=== PATIENT | female | born 1940 | race Caucasian/White ===

== ENCOUNTER → 2019-11-25 14:55 | Outpatient (CLI) | payer MEDICARE, BC, SELFPAY ==
--- NOTE | ~2019-11-25 | MM_ITS ---
EXAMINATION: MM screening pierre BI w tl HISTORY: Screening mammogram TECHNIQUE: Craniocaudal and mediolateral oblique 3-D tomosynthesis images were obtained and synthetic 2-D images were generated. CAD analysis was submitted and interpreted. COMPARISON: 08/28/2018, 07/16/2017, 07/04/2016 bilateral digital screening mammogram examinations BREAST PARENCHYMAL COMPOSITION: FINDINGS: There is no evidence of suspicious mass, calcification, or architectural distortion to sugg est malignancy in either breast. There has been no suspicious interval change. IMPRESSION: 1. No mammographic evidence of malignancy. 2. Recommend routine screening mammography in one year. BIRADS Category 1: Negative Reviewed, dictated and finalized at location A.
== END ==
PROVIDERS: Visit Provider Obstetrics & Gynecology Gynecology
DX: Z12.31 Encounter for screening mammogram for malignant neoplasm of breast (principal)
CPT/HCPCS: 77063; 77067

== ENCOUNTER 2020-01-21 18:26 | Emergency (ER) | payer MEDICARE, BC, SELFPAY ==
--- NOTE | 2020-01-21 18:35 | ECG_ITS ---
Measurements Intervals [place] Rate: 85 P: 42 [place]: 150 QRS: -33 QRSD: 113 T: 35 QT: 369 QTc: 441 Interpretive Statements SINUS RHYTHM LEFT AXIS DEVIATION INTRAVENTRICULAR CONDUCTION DELAY LEFT VENTRICULAR HYPERTROPHY AND ST-T CHANGE CANNOT RULE OUT SEPTAL INFARCT, AGE INDETERMINATE BORDERLINE ST ABNORMALITY- HIGH LATERAL LEADS ABNORMAL ECG Electronically Signed On 01-22-2020 6:53:59 CDT by Tee Crowder D.O.
[2020-01-21 18:39] VITALS: BP 196/104; PULSE 88; RESP 14; TEMP 36.9; O2SAT 98
[2020-01-21 18:54] LABS: Basophils Percent Auto 0.5 % (0.2-1.2); Eosinophils Absolute Auto 0.2 K/mm3 (0-0.3); Eosinophils Percent Auto 1.7 % (0-4.4); Hematocrit 37.8 % (37.0-47.0); Hemoglobin 12.9 g/dL (12.0-15.0); Immature Granulocyte Absolute 0.03 K/mm3 (0.00-0.031); Immature Granulocyte Percent A 0.3 % (0-0.5); Lymphocytes Absolute Auto 3.33 K/mm3 (0.9-3.2); Lymphocytes Percent Auto 38.1 % (18.3-44.2); Mean Corpuscular HGB Conc 34.1 g/dl (32-36); Mean Corpuscular Hemoglobin 31.5 pg (26-34); Mean Corpuscular Volume 92.4 fl (80-100); Mean Platelet Volume 8.6 fl (7.4-10.4); Monocytes Absolute Auto 0.8 K/mm3 (0.1-0.6); Monocytes Percent Auto 8.9 % (2.6-8.5); Neutrophils Absolute Auto 4.4 K/mm3 (1.3-6.7); Neutrophils Percent Auto 50.5 % (45.5-73.1); Nucleated Red Blood Cells Perc 0.3 % (0.0-0.2); Platelet Count Result 291 k/mm3 (150-375); Red Blood Count 4.09 M/mm3 (4.2-5.4); White Blood Count 8.7 K/mm3 (4.5-10.0)
[2020-01-21 19:04] LABS: Anion Gap 7 mmol/L (8-16); Blood Urea Nitrogen 18 mg/dL (7-17); Calcium 9.4 mg/dL (8.4-10.2); Carbon Dioxide 27 mmol/L (22-30); Chloride 98 mmol/L (98-107); Estimated CRCL calculation 43 ml/min; Estimated Glomerular Filt Rate > 60; Glucose 139 mg/dL (65-105); Potassium 3.7 mmol/L (3.4-5.0); Sodium 132 mmol/L (137-145)
[2020-01-21 19:15] VITALS: BP 108/73; PULSE 65; RESP 18; O2SAT 99
--- NOTE | 2020-01-21 19:48 | ED.GENADULT ---
HPI - General Adult General Chief complaint: Unspecified Stated complaint: high blood pressure Time Seen by Provider: 01/21/20 19:13 History of Present Illness HPI narrative: Pt c/o elevated blood pressure at home 200 , denies any symptoms. Denies headache, dizziness, speech or visual disturbance, weakness, numbness, unsteady gait, cp, sob, abd pain or n/v. Related Data Home Medications Medication Instructions Recorded Confirmed amlodipine 03/24/19 Allergies Allergy/AdvReac Type Severity Reaction Status Date / Time No Known Allergies Allergy Verified 03/24/19 15:39 Review of Systems Review of Systems: All systems reviewed & are unremarkable except as noted in HPI and below Constitutional: Constitutional: Denies body ache(s), Denies chills, Denies excessive sweating, Denies fatigue, Denies fever(s), Denies headache(s), Denies lethargy, Denies malaise, Denies weakness and Denies weight loss Eyes: Eyes: Denies blurry vision, Denies change in vision and Denies loss of vision ENT: Denies dizziness, Denies ear discharge, Denies headache(s), Denies lip swelling, Denies epistaxis, Denies nasal congestion, Denies neck pain, Denies throat swelling and Denies tongue swelling Cardiovascular: Cardiovascular: Denies chest pain, Denies chest pain at rest, Denies chest pain with activity, Denies diaphoresis, Denies rapid heart rate, Denies edema, Denies irregular heart rhythm, Denies lightheadedness, Denies palpitations, Denies dyspnea and Denies dyspnea on exertion Respiratory: Respiratory: Denies chest congestion, Denies cough, Denies hemoptysis, Denies dyspnea and Denies dyspnea on exertion Gastrointestinal: Gastrointestinal: Denies abdominal pain, Denies melena, Denies hematochezia, Denies diarrhea, Denies nausea, Denies vomiting and Denies hematemesis Musculoskeletal: Musculoskeletal: Denies abnormal gait, Denies deformity, Denies joint swelling, Denies limited range of motion, Denies neck pain and Denies numbness Neurologic: Denies Abnormal speech present, Denies abnormal gait, Denies confusion, Denies dizziness, Denies headache(s), Denies focal weakness, Denies loss of vision, Denies numbness, Denies Other visual disturbances, Denies Sensory deficit (Neuro) and Denies weakness Psychiatric: Psychiatric: Denies confusion, Denies depression, Denies auditory hallucinations, Denies homicidal ideation and Denies suicidal ideation Endocrine: Endocrine: Denies cold intolerance, Denies excessive sweating, Denies fatigue, Denies heat intolerance and Denies palpitations Hematologic/Lymphatic: Hematologic/Lymphatic: Denies easy bleeding and Denies easy bruising Allergic/Immunologic: Allergic/Immunologic: Denies lip swelling, Denies throat swelling and Denies tongue swelling PMFSH Past Medical History Medical History (Updated 01/21/20 @ 20:38 by Jose A Santillan MD) HTN (hypertension) Surgical History Surgical History (Updated 03/24/19 @ 16:25 by Phil Rao) No significant past surgical history Social History Social History (Updated 03/24/19 @ 16:25 by Phil Rao) Smoking status: Never smoker Gender identity (if verbalized by the patient): Female Exam Const: General: cooperative, healthy appearing, comfortable, no acute distress, well developed, alert and awake; No confusion Orientation/consciousness: oriented to person, oriented to place, oriented to time, patient oriented x3 and No confusion Limitations: no limitations HENMT: Head: normal to inspection, normocephalic and atraumatic Ears: hearing grossly normal bilaterally, TM normal on the right and TM normal on the left General nose exam: Normal external nose present, Normal nares present and No nasal discharge present Face and sinus: normal facial exam Mouth: Yes Normal oral and palatal mucosa present, Yes lip normal, Yes tongue normal and Yes oropharynx normal Throat: posterior oropharynx normal, tonsils normal and uvula midline Eyes: General: ap
[2020-01-21 20:00] VITALS: BP 148/92; PULSE 79; O2SAT 99
[2020-01-21 21:00] VITALS: BP 126/93; PULSE 83; RESP 18; O2SAT 95
[2020-01-21 21:50] VITALS: BP 134/79; PULSE 89; RESP 16; O2SAT 99
== END 2020-01-21 21:50 | disposition home or self-care (01) ==
PROVIDERS: Emergency Medicine; Emergency Provider Emergency Medicine
DX: I10 Essential (primary) hypertension (principal)
CPT/HCPCS: 36415; 80048; 85025; 93005; 99284

== ENCOUNTER 2020-02-04 11:12 | Observation (INO) | payer MEDICARE, BC, SELFPAY ==
[2020-02-04] VITALS (13 sets, daily range): BP systolic 114–212; BP diastolic 51–69; PULSE 50–64; RESP 15–23; TEMP 35.7–36.1; O2SAT 96–100; BMI 28.0
--- NOTE | ~2020-02-04 | XR_ITS ---
XR chest 1V portable DATE: 02/04/2020 14:32 INDICATION: Hypertension TECHNIQUE: Portable AP chest on 02/14/2020 at 1429 hours COMPARISON: 03/24/2019 PA and lateral chest FINDINGS: Heart size appears within normal limits considering magnification associated with abduction . There is aortic arch calcification and mild aortic unfolding. No pulmonary infiltrate or consolidat ion, pleural effusion or pulmonary vascular congestion or pneumothorax is detected. Osteopenia. IMPRESSION: No active cardiopulmonary disease or significant change since 03/24/2019 Reviewed, dictated and finalized at location A.
--- NOTE | ~2020-02-04 | CT_ITS ---
EXAMINATION: CT brain wo con DATE: 02/04/2020 14:52 INDICATION: Dizziness TECHNIQUE: Computed tomography (CT) of the head was performed without intravenous contrast. Sagittal and coronal reconstructions were performed. The mA was adjusted according to patient size. Iterative reconstruction technique was employed. The dose-length product was 605.33 mGy-cm. COMPARISON: None FINDINGS: No acute intracranial hemorrhage, acute infarction or abnormal extra axial fluid collection. There is mild scattered white matter hypoattenuation consistent with chronic small vessel ischemic disease. Ventricles are normal and symmetric. No mass/mass effect. The orbits, paranasal sinuses and mastoid a ir cells are normal. Intracranial calcified cerebral atherosclerosis is noted. IMPRESSION: 1. No acute intracranial process. 2. Mild scattered white matter hypoattenuation consistent with chronic small vessel ischemic disease. Reviewed, dictated and finalized at location A. IMPRESSION: 1. No acute intracranial process. 2. Mild scattered white matter hypoattenuation consistent with chronic small ve ssel ischemic disease.
--- NOTE | 2020-02-04 12:08 | ECG_ITS ---
Measurements Intervals [place] Rate: 58 P: 62 FL: 97 QRS: -36 QRSD: 111 T: -9 QT: 409 QTc: 405 Interpretive Statements SINUS BRADYCARDIA WITH SHORT FL INTERVAL LEFT AXIS DEVIATION INCOMPLETE RIGHT BUNDLE BRANCH BLOCK VOLTAGE CRITERIA FOR LVH CANNOT RULE OUT SEPTAL INFARCT, AGE INDETERMINATE BORDERLINE T WAVE ABNORMALITY- INFERIOR LEADS ABNORMAL ECG Electronically Signed On 02-04-2020 12:25:07 CDT by Tee Crowder D.O.
--- NOTE | 2020-02-04 14:05 | ED.GENADULT ---
HPI - General Adult General Chief complaint: Unspecified Stated complaint: hign blood pressure Time Seen by Provider: 02/04/20 13:43 Source: patient Mode of arrival: ambulatory Limitations: no limitations History of Present Illness HPI narrative: 79 years old white female presents with elevated blood pressure in the last few days. Was seen by her family physician recently, used to be on amlodipine which stopped and started on losartan. At home blood pressure running in the 200s. Patient also complaining of dizziness and foggy feeling. Patient lives alone, extremely worried about her blood pressure because her mom had stroke at her age, Blood pressure on arrival to the emergency room was 212/65, when I went see the patient in the room was 175/62, Patient denies any fever, chills, nausea, vomiting, headache, chest pain, back pain or abdominal pain. Patient denies any focal weakness or numbness. Patient drove herself to the emergency room, She works as a business specialist Related Data Home Medications Medication Instructions Recorded Confirmed losartan 02/04/20 Allergies Allergy/AdvReac Type Severity Reaction Status Date / Time No Known Allergies Allergy Verified 02/04/20 12:06 Review of Systems Review of Systems: Narrative: CONSTITUTIONAL: Denies fever, chills, or sweats. EYES: Denies visual changes, redness, or discharge. ENT: Denies rhinorrhea, congestion, sore throat, or otalgia. CARDIOVASCULAR: Denies chest pain, palpitations, or edema. RESPIRATORY: Denies cough or dyspnea. GASTROINTESTINAL: Denies abdominal pain, nausea, vomiting, or diarrhea. GENITOURINARY: Denies dysuria or hematuria. SKIN: Denies rash or itching. MUSCULOSKELETAL: Denies back pain, joint pain, or myalgia. NEUROLOGIC: Denies headache, numbness, or weakness. PSYCHIATRIC: Anxious. [facility] Past Medical History Medical History HTN (hypertension) Surgical History Surgical History No significant past surgical history Social History Social History Smoking status: Never smoker Gender identity (if verbalized by the patient): Female Sexual Orientation (if Verbalized by the Patient): Straight or Heterosexual Exam Narrative: Exam Narrative: General appearance: Well-developed, well-nourished, anxious, no significant other at the bedside Skin: Normal color Head: Normocephalic, nontraumatic Eyes: Clear conjunctiva ENT: Oropharynx normal, ears normal, nose normal Neck: Supple, nontender Chest and respiratory: Airway patent, no respiratory distress, no accessory muscle use Heart: Regular rate/rhythm Abdomen: Soft, nontender, no organomegaly, quiet bowel sounds Vascular: Normal peripheral pulses, normal capillary refill. Musculoskeletal: Normal range of motion, nontender back Neurologic: Alert and oriented ?3, [employer] is normal as tested, no gross motor deficit Course Course Emergency Course: Improving Currently blood pressure is 124/59 after 0.1 mg of clonidine orally. STUDIO OPERATOR/PA Physician Supervision Now patient complaining of tightness, swelling and heaviness of her breasts bilaterally, no improvement after removing her bras, physical exam showed no acute physical findings to explain patient's symptoms. Patient reported that she cannot go home because she still has lightheadedness and cannot drive and can manage her life at home especially she lives alone, have 2 children who are extremely busy and nobody have time for her. Patient reports that she been taking salt in her diet, nobody extubated why she had hyponatremia in the past.
--- NOTE | 2020-02-04 14:56 | PC.NURSE ---
pt to ct scan via stretcher
[2020-02-04] MEDS: cloNIDine HCL 0.1 MG TABLET PO (14:57)
[2020-02-04 15:22] LABS: Add Urine Microscopic? YES; Appearance Urine Clear (Clear); Bilirubin Urine Negative (Negative); Blood Urine Negative (Negative); Color Urine Straw (Yellow); Glucose Urine UA Negative (Negative); Ketones Urine Negative (Negative); Leukocyte Esterase Ur Trace LEU/UL (Negative); Mucus Urine Rare /lpf; Nitrate Urine Negative (Negative); Protein Urine Negative (Negative); RBC Urine 0-2 /hpf (0-2); Specific Grav Ur 1.005 (1.001-1.035); Squamous Epithelial Cell Urine Rare /hpf (Few); Urobilinogen Urine Negative mg/dL (<2.0); WBC Urine 0-3 /hpf
[2020-02-04 15:35] LABS: Basophils Percent Auto 0.4 % (0.2-1.2); Eosinophils Absolute Auto 0.2 K/mm3 (0-0.3); Hematocrit 36.6 % (37.0-47.0); Hemoglobin 12.9 g/dL (12.0-15.0); Immature Granulocyte Absolute 0.02 K/mm3 (0.00-0.031); Immature Granulocyte Percent A 0.3 % (0-0.5); Lymphocytes Absolute Auto 2.63 K/mm3 (0.9-3.2); Lymphocytes Percent Auto 36.1 % (18.3-44.2); Mean Corpuscular HGB Conc 35.2 g/dl (32-36); Mean Corpuscular Hemoglobin 31.3 pg (26-34); Mean Corpuscular Volume 88.8 fl (80-100); Mean Platelet Volume 8.5 fl (7.4-10.4); Monocytes Absolute Auto 0.6 K/mm3 (0.1-0.6); Neutrophils Absolute Auto 3.8 K/mm3 (1.3-6.7); Neutrophils Percent Auto 52.2 % (45.5-73.1); Platelet Count Result 301 k/mm3 (150-375); Red Blood Count 4.12 M/mm3 (4.2-5.4); Red Cell Distribution Width 11.4 % (11.5-14.5); White Blood Count 7.3 K/mm3 (4.5-10.0)
[2020-02-04 15:47] LABS: Alanine Aminotransferase 19 U/L (4-35); Albumin Level 4.3 g/dL (3.5-5.1); Alkaline Phosphatase 82 U/L (38-126); Anion Gap 7 mmol/L (8-16); Aspartate Amino Transferase 25 U/L (14-36); Bilirubin,Total 0.3 mg/dL (0.2-1.3); Blood Urea Nitrogen 10 mg/dL (7-17); Calcium 9.2 mg/dL (8.4-10.2); Carbon Dioxide 30 mmol/L (22-30); Chloride 92 mmol/L (98-107); Estimated CRCL calculation 63 ml/min; Estimated Glomerular Filt Rate > 60; Glucose 103 mg/dL (65-105); Potassium 4.1 mmol/L (3.4-5.0); Sodium 129 mmol/L (137-145)
[2020-02-04 15:48] LABS: Atypical Lymphocytes Present; Platelet Estimate Adequate (Adequate)
[2020-02-04 15:58] LABS: Troponin I < 0.012 ng/mL (0.000-0.034)
--- NOTE | 2020-02-04 18:33 | PC.NURSE ---
Dr Shane at bedside, discussed POC w/ pt.
[2020-02-04] MEDS: LORazepam (*CRX) 0.5 MG TABLET PO (19:06)
[2020-02-04] MEDS: SODIUM CHLORIDE 0.9% IV 1,000 ML 60 ML IV CONT (19:22)
--- NOTE | 2020-02-04 21:57 | ADMGEN ---
This patient, Audrey Cade, was admitted to IMU Room 211-01 from ER 02/04/202025. Patient/family oriented to hospital policies and general routines including ID bracelet, bed and alarms, visiting hours, pain management, procedures, bathroom and other care routines, personal items, smoking policy, room service/diet, and visiting hours. Valuables list has been completed. Information on how to activate the Rapid Response Team has been discussed. Patient/Family are encouraged to report perceived risks to care and to ask questions if they do not understand what they are told or what they should do.
[2020-02-04 22:31] LABS: Troponin I < 0.012 ng/mL (0.000-0.034)
[2020-02-05] VITALS (10 sets, daily range): BP systolic 118–148; BP diastolic 52–75; PULSE 45–74; RESP 18–21; TEMP 35.8–36.2; O2SAT 98–100
[2020-02-05 05:24] LABS: Troponin I < 0.012 ng/mL (0.000-0.034)
--- NOTE | 2020-02-05 06:00 | ECG_ITS ---
Measurements Intervals [place] Rate: 54 P: 2 [place]: 159 QRS: -32 QRSD: 110 T: -15 QT: 432 QTc: 410 Interpretive Statements SINUS BRADYCARDIA LEFT AXIS DEVIATION INTRAVENTRICULAR CONDUCTION DELAY VOLTAGE CRITERIA FOR LVH CANNOT RULE OUT SEPTAL INFARCT, AGE INDETERMINATE BORDERLINE T WAVE ABNORMALITY- INFERIOR LEADS ABNORMAL ECG Electronically Signed On 02-05-2020 11:55:12 CDT by Tee Crowder D.O.
[2020-02-05 06:20] LABS: Anion Gap 5 mmol/L (8-16); Blood Urea Nitrogen 9 mg/dL (7-17); Calcium 8.6 mg/dL (8.4-10.2); Carbon Dioxide 30 mmol/L (22-30); Chloride 96 mmol/L (98-107); Estimated CRCL calculation 63 ml/min; Estimated Glomerular Filt Rate > 60; Glucose 95 mg/dL (65-105); Sodium 131 mmol/L (137-145)
[2020-02-05] MEDS: ASPIRIN 81 MG CHEWABLE TABLET PO (08:34)
[2020-02-05] MEDS: SODIUM CHLORIDE 0.9% IV 1,000 ML 60 ML IV CONT (10:05)
--- NOTE | 2020-02-05 14:28 | PM.SD ---
Same Day Admit/Disch: HPI History of Present Illness Chief complaint: Uncontrolled hypertension/anxiety/hyponatremia/cp Narrative: Audrey Cade is a 79 year old female with history of hypertension recently seen by her primary care doctor and her amlodipine was stopped start the patient on losartan, patient noticed blood pressure was rising presented emergency department with complaint of being dizzy his emergency department patient was noticed to be very anxious, after few hours in the emergency depart patient blood pressure had trended down to her normal level however patient has not wanted to go home as he was afraid being alone home, patient was admitted monitor overnight. [facility] Past Medical History Medical History (Updated 02/11/20 @ 08:12 by Tee Crowder DO) HTN (hypertension) Surgical History Surgical History No significant past surgical history Family History Family History Mother Heart disease Cerebrovascular accident Father Heart disease Cancer Sibling Heart disease Social History Social History Smoking status: Never smoker Alcohol intake: current Drinks per week: 2 Substance use: never Substance use type: does not use Gender identity (if verbalized by the patient): Female Spiritual care concerns: No Same Day Admit/Disch: Med Pre-admit Medications Home Medications Medication Instructions Recorded Confirmed Type Silvino Jensen 1,000 mg PO DAILY 02/04/20 02/11/20 History Coenzyme Q10 With D3/Mag/Zinc 1 cap/day PO DAILY 02/04/20 02/11/20 History Keratan 250 mg PO DAILY 02/04/20 02/11/20 History [place] Oil 1 cap PO DAILY 02/04/20 02/11/20 History Tumeric Curcumin 500 mg PO DAILY 02/04/20 02/11/20 History cholecalciferol (vitamin D3) 25 mcg PO DAILY 02/04/20 02/11/20 History [Vitamin D3] cinnamon bark [Cinnamon] 2,000 mg PO DAILY 02/04/20 02/11/20 History coconut oil 1,000 mg PO DAILY 02/04/20 02/11/20 History cranberry extract-vitamin C 500 cap PO DAILY 02/04/20 02/11/20 History garlic 100 mg PO DAILY 02/04/20 02/11/20 History mayo root-pyridoxine HCl(B6) 550 cap PO DAILY 02/04/20 02/11/20 History ginkgo biloba 150 mg PO DAILY 02/04/20 02/11/20 History losartan 50 mg PO DAILY 02/04/20 02/11/20 History milk thistle 175 mg PO DAILY 02/04/20 02/11/20 History ha-cpc-vctys acid-lutein [Adult 1 tablet PO DAILY 02/04/20 02/11/20 History Multivitamin (w-lutein)] psyllium husk [Daily Fiber] 1,000 g PO DAILY 02/04/20 02/11/20 History vitamin B complex [B-Complex] 1 tablet PO DAILY 02/04/20 02/11/20 History hydralazine 25 mg tablet 25 mg PO TID #90 tablet 02/13/20 Rx Exam Narrative: Exam Narrative: elderly frail Patient is comfortable, NAD HEENT: eyes are clear and none icteric LUNGS:CTA HEART: RR S1S2 ABD: BS+, Soft and nontender Lower extremities: no edema SKIN: nonjaundiced Neuro: grossly intact. DS: Data Data Completed and Pending Labs on day of discharge: Labs from last 24 hours 02/05/20 02/05/20 02/04/20 04:49 00:56 21:56 WBC RBC Hgb Hct MCV MCH MCHC RDW Plt Count MPV Immature Gran % (Auto) Neut % (Auto) Lymph % (Auto) [place] % (Auto) Eos % (Auto) Baso % (Auto) Lymph # (Auto) [place] # (Auto) Eos # (Auto) Baso # (Auto) Abs Immat Gran (auto) Absolute Neuts (auto) Absolute Nucleated RBC Nucleated RBC % Atypical Lymphocytes Platelet Estimate Sodium 131 L Potassium 4.0 Chloride 96 L Carbon Dioxide 30 Anion Gap 5 L BUN 9 Creatinine 0.60 L Estim Creat Clear Calc 63 Estimated GFR > 60 Glucose 95 Calcium 8.6 Total Bilirubin AST ALT Alkaline Phosphatase Troponin I < 0.012 < 0.012 Total Protein Albumin Urine Color Urine Appearance Uri
== END 2020-02-05 15:55 | disposition home or self-care (01) ==
LOC: ANHED 19:10 → ANHIMU 20:05
PROVIDERS: Admitting Provider Internal Medicine; Emergency Provider Emergency Medicine; Visit Provider Family Medicine
DX: E87.1 Hypo-osmolality and hyponatremia (principal); I10 Essential (primary) hypertension; R07.89 Other chest pain; F41.8 Other specified anxiety disorders
CPT/HCPCS: 36415; 70450; 71045; 80048; 80053; 81001; 84484; 85025; 93005; 96360; 97161; 97165; 99285; A9270; G0378; J7030

== ENCOUNTER 2020-02-09 21:22 | Emergency (ER) | payer MEDICARE, BC, SELFPAY ==
[2020-02-09 21:36] VITALS: BP 223/81; PULSE 66; RESP 20; TEMP 36.7; O2SAT 99
--- NOTE | 2020-02-09 21:44 | ECG_ITS ---
Measurements Intervals [place] Rate: 58 P: 30 [place]: 161 QRS: -31 QRSD: 105 T: 2 QT: 412 QTc: 405 Interpretive Statements SINUS BRADYCARDIA LEFT AXIS DEVIATION VOLTAGE CRITERIA FOR LVH CANNOT RULE OUT SEPTAL INFARCT, AGE INDETERMINATE BORDERLINE T WAVE ABNORMALITY- INFERIOR LEADS BASELINE ARTIFACT- I, II, III, AVR, AVL, AVF ABNORMAL ECG Electronically Signed On 02-10-2020 6:56:41 CDT by Tee Crowder D.O.
[2020-02-09 22:06] LABS: Basophils Percent Auto 0.6 % (0.2-1.2); Eosinophils Absolute Auto 0.1 K/mm3 (0-0.3); Eosinophils Percent Auto 1.7 % (0-4.4); Hematocrit 36.8 % (37.0-47.0); Immature Granulocyte Absolute 0.01 K/mm3 (0.00-0.031); Immature Granulocyte Percent A 0.1 % (0-0.5); Mean Corpuscular HGB Conc 35.3 g/dl (32-36); Mean Corpuscular Hemoglobin 31.9 pg (26-34); Mean Corpuscular Volume 90.4 fl (80-100); Mean Platelet Volume 8.6 fl (7.4-10.4); Monocytes Absolute Auto 0.6 K/mm3 (0.1-0.6); Monocytes Percent Auto 7.9 % (2.6-8.5); Neutrophils Absolute Auto 3.5 K/mm3 (1.3-6.7); Neutrophils Percent Auto 50.7 % (45.5-73.1); Platelet Count Result 287 k/mm3 (150-375); Red Blood Count 4.07 M/mm3 (4.2-5.4); Red Cell Distribution Width 11.5 % (11.5-14.5); White Blood Count 6.9 K/mm3 (4.5-10.0)
[2020-02-09 22:13] LABS: Alanine Aminotransferase 18 U/L (4-35); Albumin Level 4.3 g/dL (3.5-5.1); Alkaline Phosphatase 78 U/L (38-126); Anion Gap 8 mmol/L (8-16); Aspartate Amino Transferase 23 U/L (14-36); Bilirubin,Total 0.3 mg/dL (0.2-1.3); Blood Urea Nitrogen 12 mg/dL (7-17); Calcium 9.1 mg/dL (8.4-10.2); Carbon Dioxide 28 mmol/L (22-30); Chloride 95 mmol/L (98-107); Estimated Glomerular Filt Rate > 60; Glucose 104 mg/dL (65-105); Potassium 3.7 mmol/L (3.4-5.0); Sodium 131 mmol/L (137-145)
[2020-02-09 23:05] VITALS: BP 184/73; PULSE 53; RESP 16; TEMP 36.1; O2SAT 100
[2020-02-09 23:23] VITALS: BP 172/64; PULSE 54; RESP 18; O2SAT 98
[2020-02-10 00:10] LABS: Add Urine Microscopic? YES; Appearance Urine Clear (Clear); Bilirubin Urine Negative (Negative); Blood Urine Negative (Negative); Color Urine Straw (Yellow); Glucose Urine UA Negative (Negative); Ketones Urine Negative (Negative); Leukocyte Esterase Ur Trace LEU/UL (Negative); Nitrate Urine Negative (Negative); Protein Urine Negative (Negative); RBC Urine 0-2 /hpf (0-2); Specific Grav Ur 1.009 (1.001-1.035); Urobilinogen Urine Negative mg/dL (<2.0)
--- NOTE | 2020-02-10 00:27 | ED.RECABL ---
HPI - Recheck/Abnormal Lab/Rx General Chief Complaint: Recheck/Abnormal Lab/Rx Stated Complaint: my blood pressure is high Time Seen by Provider: 02/09/20 23:08 Source: patient Mode of arrival: ambulatory Limitations: no limitations History of Present Illness HPI narrative: This patient is a 79 year old female with history of hypertension who presents for an evaluation of elevated blood pressure. Patient was admitted to hospital 5 days ago for hypertension. She states she had CT brain and chest xray on that visit. She was admitted over night and discharged the next day. She states her blood pressure decreased without a change in her medications. She was given ativan and she states that made her feel better. She states her losartan was increased from 50 mg to 100 mg on Sunday by her customer success advocate. She reports she has not been taking 100 mg at once. She took 50 mg this morning. She later took 25 mg when her blood pressure was elevated. She reports she is having intermittent episodes of tremors for 1 month. She states she occasionally feels foggy in the head. She denies sob with exertion. She denies chest pain with exertion. She also reports she is dealing with a lot of stress on her own. Related Data Home Medications Medication Instructions Recorded Confirmed Silvino Jensen 1,000 mg PO DAILY 02/04/20 02/04/20 Coenzyme Q10 With D3/Mag/Zinc 1 cap/day PO DAILY 02/04/20 02/04/20 Keratan 250 mg PO DAILY 02/04/20 02/04/20 [place] Oil 1 cap PO DAILY 02/04/20 02/04/20 Tumeric Curcumin 500 mg PO DAILY 02/04/20 02/04/20 cholecalciferol (vitamin D3) 25 mcg PO HS 02/04/20 02/04/20 [Vitamin D3] cinnamon bark [Cinnamon] 2,000 mg PO DAILY 02/04/20 02/04/20 coconut oil 1,000 mg PO DAILY 02/04/20 02/04/20 cranberry extract-vitamin C 500 cap PO DAILY 02/04/20 02/04/20 garlic 100 mg PO DAILY 02/04/20 02/04/20 mayo root-pyridoxine HCl(B6) 550 cap PO DAILY 02/04/20 02/04/20 ginkgo biloba 150 mg PO DAILY 02/04/20 02/04/20 losartan 50 mg PO DAILY 02/04/20 02/04/20 milk thistle 175 mg PO DAILY 02/04/20 02/04/20 [id number]-sph-azzsz acid-lutein [Adult 1 tablet PO DAILY 02/04/20 02/04/20 Multivitamin (w-lutein)] psyllium husk [Daily Fiber] 1,000 g PO DAILY 02/04/20 02/04/20 vitamin B complex [B-Complex] 1 tablet PO DAILY 02/04/20 02/04/20 Allergies Allergy/AdvReac Type Severity Reaction Status Date / Time No Known Allergies Allergy Verified 02/09/20 21:40 Review of Systems Review of Systems: All systems reviewed & are unremarkable except as noted in HPI and below Constitutional: Constitutional: Denies chills and Denies fever(s) Cardiovascular: Cardiovascular: Denies chest pain and Denies radiating jaw, neck or arm pain Respiratory: Respiratory: Denies cough, Denies dyspnea and Denies wheezing Neurologic: Denies vertigo, Denies dizziness, Denies headache(s), Denies focal weakness and Denies numbness PMFSH Past Medical History Medical History (Updated 02/10/20 @ 00:53 by Radha Garcia MD) HTN (hypertension) Surgical History Surgical History No significant past surgical history Family History Family History (Updated 02/04/20 @ 21:16 by Ynes Jenkins RN) Mother Heart disease Cerebrovascular accident Father Heart disease Cancer Sibling Heart disease Social History Social History Smoking status: Never smoker Alcohol intake: current Drinks per week: 1 Substance use: never Gender identity (if verbalized by the patient): Female Spiritual care concerns: No Exam Const: General: no acute distress and alert Orientation/consciousness: patient oriented x3 HENMT: Head: normocephalic and atraumatic Ears: hearing grossly normal bilaterally General nose exam: Normal external nose present Face and sinus: face symmetric Mouth: Yes Normal oral and palatal mucosa present,
[2020-02-10 01:21] VITALS: BP 174/67; PULSE 54; RESP 18; O2SAT 98
== END 2020-02-10 01:24 | disposition home or self-care (01) ==
PROVIDERS: Emergency Provider General Practice; PCP Internal Medicine
DX: I10 Essential (primary) hypertension (principal); F41.9 Anxiety disorder, unspecified; R00.1 Bradycardia, unspecified; R94.31 Abnormal electrocardiogram [ECG] [EKG]
CPT/HCPCS: 36415; 80053; 81001; 85025; 93005; 99283

== ENCOUNTER 2020-02-11 01:27 | Inpatient (IN) | payer MEDICARE, BC, SELFPAY ==
[2020-02-11] VITALS (26 sets, daily range): BP systolic 105–185; BP diastolic 45–133; PULSE 47–155; RESP 16–20; TEMP 35.8–36.6; O2SAT 94–100
--- NOTE | 2020-02-11 | EST_ITS ---
Patient Info Name: Audrey Cade Age: 79 years : 1940 Gender: Female Ht: 63 in Wt: 160 lbs BSA: 1.82 m2 Exam Date: 02/11/2020 11:56 AM Exam Location: [facility] Stress Patient Status: Inpatient Admit Date: 02/11/2020 Staff Ordering Physician: Tee Doherty DO Attending Provider: TEE DOHERTY Exercise Technologist: Joey Vaughn RDCS, RT Exercise Physician: Tee Doherty DO Exam Type: CA stress iesha w NM Study Info Indications I50.9 - Heart failure, unspecified A regadenoson stress test was performed. Summary 1. 1. Negative lexiscan stress test for ischemic ST changes by ECG criteria. 2. 2. Stable hemodynamics throughout the test. 3. 3. Nuclear scan to follow and will be reported separately. Please correlate with it. 4. 4. Patient informed of the above results. Protocol: Lexiscan Stress ECG Details Stage: REST Duration (min): 0 min : 53 sec HR (bpm): 47 SBP (mmHg): 116 DBP (mmHg): 60 Stage: REST Duration (min): 1 min : 27 sec HR (bpm): 44 SBP (mmHg): 116 DBP (mmHg): 60 Stage: REST Duration (min): 5 min : 6 sec HR (bpm): 48 SBP (mmHg): 116 DBP (mmHg): 60 Stage: STAGE 1 Duration (min): 1 min : 0 sec HR (bpm): 52 SBP (mmHg): 106 DBP (mmHg): 61 Stage: RECOVERY Duration (min): 1 min : 0 sec HR (bpm): 71 SBP (mmHg): 106 DBP (mmHg): 61 Stage: RECOVERY Duration (min): 2 min : 0 sec HR (bpm): 66 SBP (mmHg): 106 DBP (mmHg): 61 Stage: RECOVERY Duration (min): 3 min : 0 sec HR (bpm): 61 SBP (mmHg): 120 DBP (mmHg): 60 Stage: RECOVERY Duration (min): 3 min : 58 sec HR (bpm): 58 SBP (mmHg): 120 DBP (mmHg): 60 Rest HR: 48 bpm Peak HR: 71 bpm Rest Sys BP: 116 mmHg Peak Sys BP: 120 mmHg Max Pred HR: 142 bpm % Max Pred HR: 50 % Target HR: 121 bpm Max RPP: 8,520 bpm*mmHg Termination Reason: Completed protocol Cardiac Symptoms: Shortness of breath, Headache Total Time: 1 min : 0 sec Rest Cazares BP: 60 mmHg Peak Cazares BP: 60 mmHg Total Dose: 0.4 mg Resting ECG Sinus or ectopic atrial bradycardia, cannot r/o septal infarct, age indeterminate, borderline T wave abnormality in anterolat/inf leads. Stress ECG No ST changes. Arrhythmias None. Report Signatures
--- NOTE | ~2020-02-11 | XR_ITS ---
EXAMINATION: XR chest 1V portable DATE: 02/11/2020 02:22 INDICATION: Chest pain. TECHNIQUE: A single frontal view of the chest was obtained. COMPARISON: Chest single view 02/04/2020 FINDINGS: The chest demonstrates clear lungs without pneumonia, pleural effusion, or pneumothorax. Th e heart size is normal. IMPRESSION: 1. No acute cardiopulmonary disease. Reviewed, dictated and finalized at location A.
--- NOTE | ~2020-02-11 | NM_ITS ---
EXAMINATION: NM iesha stress w perfusion DATE: 02/11/2020 13:30 INDICATION: Chest pain TECHNIQUE: Rest images were obtained following intravenous administration of 10.5 mCi Tc99m tetrofosm in (Myoview). The patient was infused intravenously with Lexiscan (Regadenoson). Then, 33.6 mCi Tc99m tetrofosmin (Myoview) was administered intravenously, and stress images were obtained. Data was lyssa nstructed into short axis and horizontal and vertical long axis SPECT images. Gated SPECT images were also obtained. COMPARISON: None. FINDINGS: There is no definite reversible or fixed perfusion abnormality to suggest ischemia or infar ction. There is normal left ventricular chamber size, wall motion and ejection fraction. Left ventr icular ejection fraction measures 70%. IMPRESSION: 1. Normal myocardial perfusion at rest and during stress. 2. Left ventricular ejection fraction measuring 70%. Reviewed, dictated and finalized at location B.
--- NOTE | 2020-02-11 01:31 | ECG_ITS ---
Measurements Intervals [place] Rate: 149 P: [place]: 0 QRS: -35 QRSD: 102 T: 91 QT: 287 QTc: 452 Interpretive Statements ATRIAL FIBRILLATION WITH RAPID VENTRICULAR RESPONSE LEFT AXIS DEVIATION LEFT VENTRICULAR HYPERTROPHY WITH ST-T CHANGE CANNOT RULE OUT SEPTAL INFARCT, AGE INDETERMINATE ABNORMAL ECG Electronically Signed On 02-11-2020 6:35:21 CDT by Tee Crowder D.O.
[2020-02-11] MEDS: ASPIRIN 81 MG CHEWABLE TABLET 324 MG PO (01:38)
[2020-02-11] MEDS: dilTIAZem HCl INJ 25 MG/5 ML VIAL 10 MG IV PUSH (01:39)
[2020-02-11 02:02] LABS: Basophils Percent Auto 0.4 % (0.2-1.2); Eosinophils Absolute Auto 0.2 K/mm3 (0-0.3); Eosinophils Percent Auto 2.3 % (0-4.4); Hematocrit 38.6 % (37.0-47.0); Hemoglobin 13.5 g/dL (12.0-15.0); Immature Granulocyte Absolute 0.02 K/mm3 (0.00-0.031); Immature Granulocyte Percent A 0.3 % (0-0.5); Lymphocytes Absolute Auto 3.33 K/mm3 (0.9-3.2); Lymphocytes Percent Auto 45.1 % (18.3-44.2); Mean Corpuscular Hemoglobin 31.4 pg (26-34); Mean Corpuscular Volume 89.8 fl (80-100); Mean Platelet Volume 8.8 fl (7.4-10.4); Monocytes Absolute Auto 0.5 K/mm3 (0.1-0.6); Monocytes Percent Auto 7.3 % (2.6-8.5); Neutrophils Absolute Auto 3.3 K/mm3 (1.3-6.7); Neutrophils Percent Auto 44.6 % (45.5-73.1); Platelet Count Result 292 k/mm3 (150-375); Red Cell Distribution Width 11.6 % (11.5-14.5); White Blood Count 7.4 K/mm3 (4.5-10.0)
--- NOTE | 2020-02-11 02:05 | ED.ARRPALP ---
HPI - Arrhythmia/Palpitations General Chief Complaint: Arrhythmia/Palpitations Stated Complaint: rapid heart rate Time Seen by Provider: 02/11/20 01:30 Source: patient and EMS Mode of arrival: EMS Limitations: other (poor historian) History of Present Illness HPI narrative: This patient is a 79 year old female with history of hypertension who presents for evaluation of an elevated heart rate. EMS states they were called for an evaluation of elevated HR at home up to 220. Patient reports her blood pressure was 220 and not her heart rate. She is a poor historian. She states she just does not feel right. She reports she has chest pain and sob intermittently throughout the day. She denies chest pain or sob now. She denies nausea or vomiting. She was found to be in afib with RVR by EMS. She denies history of afib but she states her brother was diagnosed with afib. Related Data Home Medications Medication Instructions Recorded Confirmed Silvino Jensen 1,000 mg PO DAILY 02/04/20 02/11/20 Coenzyme Q10 With D3/Mag/Zinc 1 cap/day PO DAILY 02/04/20 02/11/20 Keratan 250 mg PO DAILY 02/04/20 02/11/20 [place] Oil 1 cap PO DAILY 02/04/20 02/11/20 Tumeric Curcumin 500 mg PO DAILY 02/04/20 02/11/20 cholecalciferol (vitamin D3) 25 mcg PO DAILY 02/04/20 02/11/20 [Vitamin D3] cinnamon bark [Cinnamon] 2,000 mg PO DAILY 02/04/20 02/11/20 coconut oil 1,000 mg PO DAILY 02/04/20 02/11/20 cranberry extract-vitamin C 500 cap PO DAILY 02/04/20 02/11/20 garlic 100 mg PO DAILY 02/04/20 02/11/20 mayo root-pyridoxine HCl(B6) 550 cap PO DAILY 02/04/20 02/11/20 ginkgo biloba 150 mg PO DAILY 02/04/20 02/11/20 losartan 50 mg PO DAILY 02/04/20 02/11/20 milk thistle 175 mg PO DAILY 02/04/20 02/11/20 [id number] acid-lutein [Adult 1 tablet PO DAILY 02/04/20 02/11/20 Multivitamin (w-lutein)] psyllium husk [Daily Fiber] 1,000 g PO DAILY 02/04/20 02/11/20 vitamin B complex [B-Complex] 1 tablet PO DAILY 02/04/20 02/11/20 Allergies Allergy/AdvReac Type Severity Reaction Status Date / Time No Known Allergies Allergy Verified 02/09/20 21:40 Review of Systems Review of Systems: ROS unobtainable: Yes other (poor historian) [facility] Past Medical History Medical History (Updated 02/11/20 @ 05:31 by Radha Garcia MD) HTN (hypertension) Surgical History Surgical History No significant past surgical history Family History Family History Mother Heart disease Cerebrovascular accident Father Heart disease Cancer Sibling Heart disease Social History Social History Smoking status: Never smoker Alcohol intake: current Drinks per week: 2 Substance use: never Substance use type: does not use Gender identity (if verbalized by the patient): Female Spiritual care concerns: No Exam Const: General: alert Orientation/consciousness: patient oriented x3 Other: patient tearful HENMT: Head: normocephalic and atraumatic Face and sinus: face symmetric Throat: posterior oropharynx normal, tonsils normal and uvula midline Eyes: Pupils: Equal, round and reactive pupils present EOM: EOMs intact bilaterally Neck: Neck: normal visual inspection Chest: Chest palpation & inspection: normal inspection of the chest Resp: Effort & Inspection: normal respiratory effort, no retractions and no use of accessory muscles Auscultation: clear to auscultation bilaterally Cardio: Rate: tachycardic Rhythm: abnormal rhythm irregularly irregular Heart sounds: no murmurs GI: GI Palp: Yes Soft to palpation, No Tenderness to palpation present (GI), No Guarding due to palpation present (GI) and No Rigid due to palpation Skin: General skin exam: normal color Rashes: no rashes Neuro: General: patient oriented x3 and moves all extremities Course Reevaluation(s) Ree
[2020-02-11 02:16] LABS: Magnesium 1.9 mg/dL (1.6-2.3)
[2020-02-11 02:17] LABS: Prothrombin Time 12.4 Seconds (11.1-14.7)
[2020-02-11 02:18] LABS: Partial Thromboplastin Time 32.6 SECONDS (22.3-36.8)
[2020-02-11 02:32] LABS: Troponin I < 0.012 ng/mL (0.000-0.034)
[2020-02-11 02:38] LABS: Anion Gap 11 mmol/L (8-16); Blood Urea Nitrogen 10 mg/dL (7-17); Calcium 9.3 mg/dL (8.4-10.2); Carbon Dioxide 26 mmol/L (22-30); Chloride 93 mmol/L (98-107); Estimated CRCL calculation 54 ml/min; Estimated Glomerular Filt Rate > 60; Glucose 115 mg/dL (65-105); Potassium 3.8 mmol/L (3.4-5.0); Sodium 130 mmol/L (137-145)
[2020-02-11] MEDS: dilTIAZem HCl INJ 25 MG/5 ML VIAL 15 MG IV PUSH (02:59)
[2020-02-11] MEDS: ENOXAPARIN 80 MG/0.8 ML SYRINGE 70 MG SUB-Q (03:02)
--- NOTE | 2020-02-11 03:05 | ECHO_ITS ---
Patient Info Name: Audrey Cade Age: 79 years : 1940 Gender: Female Ht: 63 in Wt: 159 lbs BSA: 1.81 m2 HR: 60 bpm BP: 105 / 55 mmHg Heart Rhythm: Sinus Rhythm Technical Quality: Good Exam Date: 02/11/2020 9:42 AM Exam Location: [facility] Patient Status: Inpatient Admit Date: 02/11/2020 Staff Ordering Physician: Naman Phelps MD Bin Worker: Kaz Romero RDCS Attending Provider: aNman Phelps MD Referring Physician: Mattie GEIGER; Exam Type: CA echo doppler color flow Study Info Indications I48.0 - Paroxysmal atrial fibrillation Complete two-dimensional, color flow and Doppler transthoracic echocardiogram is performed. Strain analysis performed. History/Risk Factors New onset Afib; HTN, chest pain. Summary 1. Complete two-dimensional, color flow and Doppler transthoracic echocardiogram is performed. 2. Left ventricular chamber dimension is normal. 3. Left ventricular systolic function is normal, estimated at 60-65%. 4. There is moderately increased left ventricular wall thickness. 5. The left ventricular diastolic function is abnormal. 6. E/e' 12 is mildly elevated. 7. Global longitudinal strain is abnormal at -10.9%. 8. Right ventricular systolic function is normal, though TAPSE is mildly abnormal at 1.6 cm.. 9. Left atrial chamber dimension is moderately enlarged. 10. The mitral valve has moderately calcified annulus. 11. There is trace mitral valve regurgitation. 12. There is mild tricuspid valve regurgitation. 13. No pulmonary hypertension, estimated pulmonary arterial systolic pressure is 27 mmHg. Left Ventricle E/e' 12 is mildly elevated. Global longitudinal strain is abnormal at -10.9%. Left ventricular chamber dimension is normal. Left ventricular systolic function is normal, estimated at 60-65%. There is moderately increased left ventricular wall thickness. The left ventricular diastolic function is abnormal. Right Ventricle Right ventricular systolic function is normal, though TAPSE is mildly abnormal at 1.6 cm.. Right ventricular chamber dimension is normal. Left Atria Left atrial chamber dimension is moderately enlarged. Right Atria Right atrial chamber dimension is normal. Aortic Valve The aortic valve is trileaflet. There is no aortic valve stenosis. There is no aortic valve regurgitation. Pulmonic Valve There is no pulmonic regurgitation. Mitral Valve The mitral valve has moderately calcified annulus. There is no mitral valve stenosis. There is trace mitral valve regurgitation. Tricuspid Valve There is mild tricuspid valve regurgitation. No pulmonary hypertension, estimated pulmonary arterial systolic pressure is 27 mmHg. Pericardium/Pleural There is no pericardial effusion. Inferior Vena Cava Normal inferior vena cava with >50% collapse upon inspiration consistent with normal right atrial pressure, 5 mmHg. Aorta The aortic root size at the sinus of Valsalva is normal. Left Ventricular Outflow Tract Name Value Normal LVOT 2D LVOT Diameter 2.0 cm LVOT Doppler LVOT Peak Gradient 3 mmHg
--- NOTE | 2020-02-11 03:39 | PM.IMHP ---
H&P: HPI History of Present Illness Date/Time: 02/11/20 03:39 Chief complaint: new onset afib with RVR Narrative: This is a 79-year-old female with hypertension who has presented to the emergency department various times this week for poorly controlled hypertension presented to our hospital again tonight for an evaluation of elevated heart rate. The patient states that she noticed around 930 this evening that her blood pressure was elevated and she decided to simply take some Shantal aspirin and try to go to bed. She got up around 2 in the morning because she felt significant palpitations and could not sleep. EMS was called and the patient was brought to the hospital after she was found to have a heart rate above 200 beats per minute. The patient states that she has had intermittent chest discomfort throughout the day with associated shortness of breath. She denies any significant fevers, chills, cough, abdominal pain, nausea, vomiting, dysuria, hematuria, or rectal bleeding. the patient was found to be in rapid atrial fibrillation tonight in the emergency room which she states runs strongly in her family as her mother and brother both had atrial fibrillation. The patient denies any previous history of having atrial fibrillation herself. Routine labs were obtained in the emergency room this evening and initial troponin was negative. The patient appears very depressed and states that she has a large amount of stress in her life she also verbalized to me that she did not want to be in the hospital. She was anticoagulated with Lovenox in the ER and has been started on a Cardizem IV drip for rate control. ER provider has put out a consult for Cardiology to see her in the morning. No other complaints. Review of Systems Review of Systems: All systems reviewed & are unremarkable except as noted in HPI and below PMFSH Past Medical History Medical History (Updated 02/11/20 @ 04:00 by Naman Phelps MD) HTN (hypertension) Surgical History Surgical History No significant past surgical history Family History Family History Mother Heart disease Cerebrovascular accident Father Heart disease Cancer Sibling Heart disease Social History Social History Smoking status: Never smoker Alcohol intake: current Drinks per week: 2 Substance use: never Substance use type: does not use Gender identity (if verbalized by the patient): Female Spiritual care concerns: No Meds Home Medications and Allergies Home Medications Medication Instructions Recorded Confirmed Type Silvino Jensen 1,000 mg PO DAILY 02/04/20 02/11/20 History Coenzyme Q10 With D3/Mag/Zinc 1 cap/day PO DAILY 02/04/20 02/11/20 History Keratan 250 mg PO DAILY 02/04/20 02/11/20 History [place] Oil 1 cap PO DAILY 02/04/20 02/11/20 History Tumeric Curcumin 500 mg PO DAILY 02/04/20 02/11/20 History cholecalciferol (vitamin D3) 25 mcg PO DAILY 02/04/20 02/11/20 History [Vitamin D3] cinnamon bark [Cinnamon] 2,000 mg PO DAILY 02/04/20 02/11/20 History coconut oil 1,000 mg PO DAILY 02/04/20 02/11/20 History cranberry extract-vitamin C 500 cap PO DAILY 02/04/20 02/11/20 History garlic 100 mg PO DAILY 02/04/20 02/11/20 History mayo root-pyridoxine HCl(B6) 550 cap PO DAILY 02/04/20 02/11/20 History ginkgo biloba 150 mg PO DAILY 02/04/20 02/11/20 History losartan 50 mg PO DAILY 02/04/20 02/11/20 History milk thistle 175 mg PO DAILY 02/04/20 02/11/20 History [id number]-[id number]-ugtol acid-lutein [Adult 1 tablet PO DAILY 02/04/20 02/11/20 History Multivitamin (w-lutein)] psyllium husk [Daily Fiber] 1,000 g PO DAILY 02/04/20 02/11/20 History vitamin B complex [B-Complex] 1 tablet PO DAILY 02/04/20 02/11/20 History Allergies Allergy/AdvReac Type Severity Reaction Status Date / Time No K
[2020-02-11 03:45] LABS: Free T4 Free Thyroxine Reflex 1.22 ng/dL (0.78-2.19)
--- NOTE | 2020-02-11 04:05 | PC.NURSE ---
Patient admitted with Diltiazem drip running.
--- NOTE | 2020-02-11 04:15 | PC.NURSE ---
This patient, Audrey Cade, was admitted to IMU Room 211-01. Patient/family oriented to hospital policies and general routines including ID bracelet, bed and alarms, visiting hours, pain management, procedures, bathroom and other care routines, personal items, smoking policy, room service/diet, and visiting hours. Valuables list has been completed. Information on how to activate the Rapid Response Team has been discussed. Patient/Family are encouraged to report perceived risks to care and to ask questions if they do not understand what they are told or what they should do.
[2020-02-11 04:51] LABS: Total Triiodothyronine (T3) 1.09 NG/ML (0.97-1.69)
[2020-02-11 05:17] LABS: Troponin I < 0.012 ng/mL (0.000-0.034)
--- NOTE | 2020-02-11 06:32 | ECG_ITS ---
Measurements Intervals [place] Rate: 51 P: -61 NH: 128 QRS: -34 QRSD: 110 T: -19 QT: 471 QTc: 436 Interpretive Statements ECTOPIC ATRIAL BRADYCARDIA LEFT AXIS DEVIATION LEFT VENTRICULAR HYPERTROPHY AND ST-T CHANGE CANNOT RULE OUT SEPTAL INFARCT, AGE INDETERMINATE BORDERLINE T WAVE ABNORMALITY- INF/LAT LEADS ABNORMAL ECG Electronically Signed On 02-11-2020 10:58:25 CDT by Tee Crowder D.O.
--- NOTE | 2020-02-11 08:05 | PM.CNCAR ---
Assessment and Plan Assessment and plan (1) Chest pain: Qualifiers: Chest pain type: unspecified Qualified Code(s): R07.9 - Chest pain, unspecified Code(s): R07.9 - Chest pain, unspecified Status: Acute Assessment and Plan: She has been r/o for IA by series of troponins. Obtain [employer] myoview stress test. (2) Hypertension: Qualifiers: Hypertension type: unspecified Qualified Code(s): I10 - Essential (primary) hypertension Code(s): I10 - Essential (primary) hypertension Status: Chronic Assessment and Plan: Stable. Monitor. (3) PAF (paroxysmal atrial fibrillation): Code(s): I48.0 - Paroxysmal atrial fibrillation Status: Acute Assessment and Plan: Probably due to hypertension, age, and family history of PAF. Stop Lovenox. Start Eliquis 5 mg BID this evening as requested by patient. Stop Diltiazem. Start Sotalol 80 mg BID to keep her in sinus rhythm. She will be here for 2 more nights. Obtain echo. History of Present Illness History of Present Illness Consult date/time: 02/11/20 08:05 Reason for consult: Atrial fib. 79 yr old woman admitted through ED with palpitations, fast HR and found to be in new onset atrial fibrillation. She has a history of hypertension and family history of her mother, brother many uncles and aunts with atrial fibrillation. Reports that it has been hard to control her BP since Amlodipine was discontinued due to dizziness to Losartan. And in the last week, she felt episodes of fast HR, swelling of her breast and back pain. She can walk about 1-2 blocks without any problems. In ED EKG showed atrial fib with RVR and she states it was up to 200 bpm. TSH 5.0 with normal FT4. Mag 1.8 and Potassium 3.8. Sodium 130. Troponins negative x 2 sets. She was placed on Lovenox and Diltiazem drip and based on telemetry, she spontaneously converted at 5:54 am. She no longer feels palpitations or fast HR. She was dizzy walking to restroom this morning. Denies orthopnea, PND, edema. Reason For Visit: new onset afib with RVR Review of Systems Review of Systems: All systems reviewed & are unremarkable except as noted in HPI and below Constitutional: Constitutional: Reports as per HPI, Denies chills and Denies fever(s) Cardiovascular: Cardiovascular: Reports as per HPI, Reports chest pain, Denies leg edema and Reports lightheadedness Respiratory: Respiratory: Reports as per HPI and Denies dyspnea Gastrointestinal: Gastrointestinal: Reports as per HPI and Denies abdominal pain Genitourinary: Genitourinary: Reports as per HPI and Denies urinary frequency Musculoskeletal: Musculoskeletal: Reports as per HPI Neurologic: Reports as per HPI, Reports dizziness and Denies syncope [facility] Past Medical History Medical History (Updated 02/11/20 @ 08:12 by Tee Crowder DO) HTN (hypertension) Surgical History Surgical History No significant past surgical history Family History Family History Mother Heart disease Cerebrovascular accident Father Heart disease Cancer Sibling Heart disease Social History Social History Smoking status: Never smoker Alcohol intake: current Drinks per week: 2 Substance use: never Substance use type: does not use Gender identity (if verbalized by the patient): Female Spiritual care concerns: No Meds Home Medications and Allergies Home Medications Medication Instructions Recorded Confirmed Type Silvino Jensen 1,000 mg PO DAILY 02/04/20 02/11/20 History Coenzyme Q10 With D3/Mag/Zinc 1 cap/day PO DAILY 02/04/20 02/11/20 History Keratan 250 mg PO DAILY 02/04/20 02/11/20 History [place] Oil 1 cap PO DAILY 02/04/20 02/11/20 History Tumeric Curcumin 500 mg PO DAILY 02/04/20 02/11/20 History cholec
[2020-02-11 08:33] LABS: Cholesterol 195 mg/dL (0-200); HDL Direct 64 mg/dL; Triglycerides 95 mg/dL (<150)
[2020-02-11 08:44] LABS: LDL Cholesterol Direct 95 mg/dL
[2020-02-11 08:46] LABS: Troponin I < 0.012 ng/mL (0.000-0.034)
[2020-02-11] MEDS: SOTALOL HCL 80 MG TABLET PO (08:53)
--- NOTE | 2020-02-11 11:26 | PC.NURSE ---
1045- To nuclear med dept for Iris via w/c accompanied by tech
--- NOTE | 2020-02-11 13:33 | PM.IMPN ---
Progress Note: A&P Assessment and Plan (1) PAF (paroxysmal atrial fibrillation): Code(s): I48.0 - Paroxysmal atrial fibrillation Status: Acute Assessment and Plan: Rate controlled. Started on Sotalol. Started on anticoagulation Appreciate Cardiology note 2DECHO reviewed (2) Chest pain: Qualifiers: Chest pain type: unspecified Qualified Code(s): R07.9 - Chest pain, unspecified Code(s): R07.9 - Chest pain, unspecified Status: Acute Assessment and Plan: Ruled out ACS with negative serial Trops. No ECG changes T wave or ST segment. Lexiscan stress test reviewed (3) Atrial fibrillation with rapid ventricular response: Code(s): I48.91 - Unspecified atrial fibrillation Status: Acute Assessment and Plan: Continuous Telemetry monitoring Started Sotalol (4) Hypertension: Qualifiers: Hypertension type: unspecified Qualified Code(s): I10 - Essential (primary) hypertension Code(s): I10 - Essential (primary) hypertension Status: Chronic Assessment and Plan: Improved Continue home meds Used to be on Amlodipine but was switched to Losartan (5) Chronic hyponatremia: Code(s): E87.1 - Hypo-osmolality and hyponatremia Status: Acute Assessment and Plan: Continue to monitor Daily BMP Subjective Date/time seen: 02/11/20 13:33 I feel much better now. Review of Systems Review of Systems: Narrative: Patient has been having dizziness x 2 weeks, but last night was the worse as well as high blood pressure and sob with minimal activity. Constitutional: Comments: no fevers, no rigors, no chills. Eyes: Comments: no vision changes. ENT: Comments: no ear pain, no throat pain, no nasal discharge or congestion. Cardiovascular: Comments: sob, palpitations, fatigue, dizziness. Respiratory: Comments: no cough, no sputum production. Gastrointestinal: Comments: no n/v/abdominal pain Musculoskeletal: Comments: no joint pain or swelling. Integumentary/Breasts: Comments: no rashes, no discoloration. Neurologic: Comments: no sensory motor deficit. Hematologic/Lymphatic: Comments: No LAP Exam Narrative: Exam Narrative: Lying in bed, well appearing. Const: General: cooperative, healthy appearing, comfortable, well developed, alert and awake Nutritional Appearance: thin HENMT: Head: normal to inspection and normocephalic Ears: hearing grossly normal bilaterally General nose exam: Normal external nose present Face and sinus: normal facial exam Eyes: General: appearance normal, both eyes and all related structures Pupils: Equal, round and reactive pupils present EOM: EOMs intact bilaterally Neck: Neck: normal visual inspection, full ROM, no lymphadenopathy and no JVD Thyroid: thyroid normal Resp: Auscultation: clear to auscultation bilaterally Cardio: Jugular venous distension: no JVD Heart sounds: S1 normal heart sound present and S2 normal heart sound present GI: Inspection: normal to inspection GI Palp: Yes Soft to palpation and Yes No hepatosplenomegaly present Skin: General skin exam: normal color Lesions: no lesions Rashes: no rashes Trauma: no lacerations or abrasions Wounds: no wounds Neuro: General: patient oriented x3 and CN's II-XI intact bilaterally Cranial nerves: Yes CN's II-XII intact bilaterally and Yes Equal, round and reactive pupils present Speech: normal speech Gait exam (Neuro): Normal gait present Motor exam (neuro): 5/5 motor strength present throughout Sensory Exam: normal sensation Extrem: General: normal to inspection and full ROM Objective Data Vital Signs Vital Signs: Vital Signs - 24 hr 02/11/20 01:24 02/11/20 01:41 02/11/20 01:52 Temperature 98 F Pulse Rate 155 H 147 H 138 H Respiratory Rate Blood Pressure 169/100 H 169/100 H 169/73 H Pulse Oximetry 99 02/11/20 02:27 02/11/20 03:10 02/11/20 04:02 Temperature Pulse Rate 134 H 105 H 91 Resp
--- NOTE | 2020-02-11 15:41 | PC.NURSE ---
1255- returned to room - Iris completed- rate bradycardic 40's- denies dizziness
[2020-02-11] MEDS: APIXABAN 5 MG TABLET PO (17:23)
[2020-02-11] MEDS: SOTALOL HCL 40 MG TABLET PO (20:20)
--- NOTE | 2020-02-11 20:47 | PC.NURSE ---
Pt up to walk halls with walker. RN and Tech asst with WC on standby. Pt walked 60 yards without assistance. Hr stayed below 70 during walk.
[2020-02-12] VITALS (17 sets, daily range): BP systolic 138–175; BP diastolic 51–69; PULSE 45–74; RESP 12–18; TEMP 35.7–36.3; O2SAT 98–100
[2020-02-12 04:58] LABS: Basophils Percent Auto 0.5 % (0.2-1.2); Eosinophils Absolute Auto 0.1 K/mm3 (0-0.3); Eosinophils Percent Auto 2.1 % (0-4.4); Hemoglobin 11.7 g/dL (12.0-15.0); Immature Granulocyte Absolute 0.01 K/mm3 (0.00-0.031); Immature Granulocyte Percent A 0.2 % (0-0.5); Lymphocytes Absolute Auto 2.79 K/mm3 (0.9-3.2); Lymphocytes Percent Auto 42.1 % (18.3-44.2); Mean Corpuscular HGB Conc 35.5 g/dl (32-36); Mean Corpuscular Hemoglobin 31.3 pg (26-34); Mean Corpuscular Volume 88.2 fl (80-100); Mean Platelet Volume 8.7 fl (7.4-10.4); Monocytes Absolute Auto 0.6 K/mm3 (0.1-0.6); Monocytes Percent Auto 9.4 % (2.6-8.5); Neutrophils Percent Auto 45.7 % (45.5-73.1); Platelet Count Result 280 k/mm3 (150-375); Red Blood Count 3.74 M/mm3 (4.2-5.4); Red Cell Distribution Width 11.4 % (11.5-14.5); White Blood Count 6.6 K/mm3 (4.5-10.0)
[2020-02-12 05:14] LABS: Anion Gap 4 mmol/L (8-16); Blood Urea Nitrogen 17 mg/dL (7-17); Calcium 8.7 mg/dL (8.4-10.2); Carbon Dioxide 28 mmol/L (22-30); Chloride 96 mmol/L (98-107); Estimated CRCL calculation 49 ml/min; Estimated Glomerular Filt Rate > 60; Glucose 95 mg/dL (65-105); Sodium 128 mmol/L (137-145)
--- NOTE | 2020-02-12 08:29 | PC.NURSE ---
Notified Dr. Crowder of patient heart rate 40s to 50s. Verfied dose of sotolol. Verbal order obtained to change sotolol 80mg Q12hr to 40mg Q12hr. Will continue to monitor patient.
[2020-02-12] MEDS: SOTALOL HCL 40 MG TABLET PO ×2 (09:47→21:32)
[2020-02-12] MEDS: APIXABAN 5 MG TABLET PO ×2 (09:47→16:19)
--- NOTE | 2020-02-12 10:49 | ECG_ITS ---
Measurements Intervals [place] Rate: 49 P: -65 [place]: 116 QRS: -32 QRSD: 108 T: -25 QT: 455 QTc: 414 Interpretive Statements ECTOPIC ATRIAL BRADYCARDIA LEFT AXIS DEVIATION VOLTAGE CRITERIA FOR LVH CANNOT RULE OUT SEPTAL INFARCT, AGE INDETERMINATE BORDERLINE ST-T WAVE ABNORMALITY- INF/LAT LEADS BASELINE ARTIFACT- I, II, III, AVR, AVL, AVF ABNORMAL ECG Electronically Signed On 02-12-2020 11:44:59 CDT by Tee Crowder D.O.
--- NOTE | 2020-02-12 10:49 | PM.PNCARD ---
Progress Note: A&P Assessment and Plan (1) PAF (paroxysmal atrial fibrillation): Code(s): I48.0 - Paroxysmal atrial fibrillation Status: Acute Assessment and Plan: Probably due to hypertension, age, and family history of PAF. On Eliquis 5 mg BID. Started Sotalol 80 mg BID but receiving some 40 mg doses due to bradycardia to keep her in sinus rhythm. Will need 5 doses of Sotalol prior to discharge which would be tomorrow morning's dose is 5th dose. Check EKG after each dose to check QT interval. (2) Hypertension: Qualifiers: Hypertension type: unspecified Qualified Code(s): I10 - Essential (primary) hypertension Code(s): I10 - Essential (primary) hypertension Status: Chronic Assessment and Plan: Stable. Will add Hydralazine if BP goes up. Subjective Date/time seen: 02/12/20 10:49 She felt a little dizzy yesterday when she noted HR was in 30-40's bpm range. Denies chest pain or sob. Exam Const: General: cooperative, healthy appearing and comfortable Resp: Auscultation: clear to auscultation bilaterally, no crackles, no rales, no rhonchi and no wheezes Cardio: Jugular venous distension: no JVD Rate: bradycardic Rhythm: regular rhythm Heart sounds: no murmurs GI: GI Palp: No abdominal tenderness and Yes Soft to palpation Neuro: General: oriented to person, oriented to place and oriented to time Extrem: Right lower extremity: no edema Left lower extremity: no edema Objective Data Vital Signs Vital Signs: Vital Signs - 24 hr 02/11/20 12:55 02/11/20 13:10 02/11/20 14:00 Temperature 96.7 F L Pulse Rate 47 L 48 L 48 L Respiratory Rate 16 Blood Pressure 123/45 L Pulse Oximetry 94 02/11/20 15:00 02/11/20 16:00 02/11/20 16:30 Temperature 97.5 F L Pulse Rate 49 L 49 L 51 L Respiratory Rate 18 Blood Pressure 139/48 L Pulse Oximetry 98 02/11/20 17:00 02/11/20 18:00 02/11/20 19:58 Temperature 96.9 F L Pulse Rate 52 L 53 L 54 L Respiratory Rate 18 Blood Pressure 122/62 Pulse Oximetry 99 02/11/20 20:00 02/11/20 20:20 02/11/20 22:00 Temperature Pulse Rate 53 L 68 66 Respiratory Rate Blood Pressure Pulse Oximetry 02/11/20 23:32 02/12/20 00:00 02/12/20 02:00 Temperature 97.9 F Pulse Rate 48 L 53 L 58 L Respiratory Rate 16 Blood Pressure 139/60 Pulse Oximetry 100 02/12/20 04:00 02/12/20 04:15 02/12/20 06:00 Temperature 97.3 F L Pulse Rate 46 L 49 L 54 L Respiratory Rate 16 Blood Pressure 138/63 Pulse Oximetry 100 02/12/20 07:10 02/12/20 08:00 02/12/20 09:47 Temperature 96.2 F L Pulse Rate 47 L 56 L 55 L Respiratory Rate 18 Blood Pressure 141/51 H Pulse Oximetry 99 02/12/20 10:00 Temperature Pulse Rate 46 L Respiratory Rate Blood Pressure Pulse Oximetry Intake/Output Intake/Output: Intake & Output 02/09/20 02/10/20 02/11/20 02/12/20 23:59 23:59 23:59 23:59 Intake Total 940 270 Output Total 1700 750 Balance -760 -480 Meds/Results Medications: Active Medications Generic Name Dose Route Start Last Admin Trade Name Freq PRN Reason Stop Dose Admin Apixaban 5 mg 02/11/20 17:00 02/12/20 09:47 Apixaban 5 Mg Tablet PO 5 mg BID JARRET Administration Nitroglycerin 0.4 mg 02/11/20 04:03 Nitroglycerin Sl 0.4 Mg Tablet SUBLINGUAL Q5MIN PRN Chest Pain Ondansetron HCl 4 mg 02/11/20 03:17 Ondansetron Inj 4 Mg/2 Ml Vial IV PUSH Q4H PRN Nausea Sotalol HCl 40 mg 02/12/20 09:00 02/12/20 09:47 Sotalol Hcl 40 Mg Tablet PO 40 mg Q12HR JARRET Administration Radiology Results: ITS Impressions Chest X-Ray 02/11/20 06:43 IMPRESSION: 1. No acute cardiopulmonary disease. Lexiscan Stress Test 02/11/20 13:33 IMPRESSION: 1. Normal myocardial perfusion at rest and during stress. 2. Left ventricular ejection fraction measuring 70%. Labs Labs: Laboratory Results - last 24 hr
--- NOTE | 2020-02-12 11:12 | PM.IMPN ---
Progress Note: A&P Assessment and Plan (1) PAF (paroxysmal atrial fibrillation): Code(s): I48.0 - Paroxysmal atrial fibrillation Status: Acute Assessment and Plan: Started on Sotalol and Eliquis. Appreciate Cardiology note. (2) Chest pain: Qualifiers: Chest pain type: unspecified Qualified Code(s): R07.9 - Chest pain, unspecified Code(s): R07.9 - Chest pain, unspecified Status: Acute Assessment and Plan: Resolved. (3) Atrial fibrillation with rapid ventricular response: Code(s): I48.91 - Unspecified atrial fibrillation Status: Acute Assessment and Plan: Resolved Started on Sotalol Continue Telemetry Continue to monitor (4) Hypertension: Qualifiers: Hypertension type: unspecified Qualified Code(s): I10 - Essential (primary) hypertension Code(s): I10 - Essential (primary) hypertension Status: Chronic Assessment and Plan: Well controlled Continue to monitor (5) Chronic hyponatremia: Code(s): E87.1 - Hypo-osmolality and hyponatremia Status: Acute Assessment and Plan: Continue to monitor. (6) Chest pain at rest: Code(s): R07.9 - Chest pain, unspecified Status: Acute Assessment and Plan: Resolved. Subjective Date/time seen: 02/12/20 11:12 I feel fine, no dizziness. Review of Systems Review of Systems: Narrative: Was bradycardic. Constitutional: Comments: no fevers, no rigors, no chills. Eyes: Comments: no visual changes. ENT: Comments: no ear pain, no nasal discharge or congestion, no throat pain. Cardiovascular: Comments: no sob, no dizziness, no pnd, no orthopnea. Respiratory: Comments: no cough, no sptum produciton. Gastrointestinal: Comments: no n/v/abdominal pain. Musculoskeletal: Comments: no leg swelling. Integumentary/Breasts: Comments: no rashes. Neurologic: Comments: no sensory motor deficit. Hematologic/Lymphatic: Comments: No LAD. Exam Narrative: Exam Narrative: Sitting in bed. Const: General: cooperative, healthy appearing, comfortable and no acute distress Nutritional Appearance: average body habitus Orientation/consciousness: patient oriented x3 HENMT: Head: normal to inspection and normocephalic Ears: hearing grossly normal bilaterally General nose exam: Normal external nose present Face and sinus: normal facial exam Mouth: Yes Normal oral and palatal mucosa present Eyes: General: appearance normal, both eyes and all related structures Pupils: Equal, round and reactive pupils present EOM: EOMs intact bilaterally Neck: Neck: full ROM, no lymphadenopathy, trachea midline, supple and no JVD Resp: Effort & Inspection: normal respiratory effort Auscultation: clear to auscultation bilaterally Cardio: Jugular venous distension: no JVD Rate: bradycardic Heart sounds: S1 normal heart sound present and S2 normal heart sound present GI: Inspection: normal to inspection GI Palp: Yes Soft to palpation and Yes No hepatosplenomegaly present Skin: General skin exam: normal color and turgor normal Lesions: no lesions Rashes: no rashes Wounds: no wounds Neuro: General: patient oriented x3 and CN's II-XI intact bilaterally Cranial nerves: Yes Equal, round and reactive pupils present Motor exam (neuro): 5/5 motor strength present throughout Sensory Exam: normal sensation Extrem: General: full ROM and no pedal edema Objective Data Vital Signs Vital Signs: Vital Signs - 24 hr 02/11/20 12:55 02/11/20 13:10 02/11/20 14:00 Temperature 96.7 F L Pulse Rate 47 L 48 L 48 L Respiratory Rate 16 Blood Pressure 123/45 L Pulse Oximetry 94 02/11/20 15:00 02/11/20 16:00 02/11/20 16:30 Temperature 97.5 F L Pulse Rate 49 L 49 L 51 L Respiratory Rate 18 Blood Pressure 139/48 L Pulse Oximetry 98 02/11/20 17:00 02/11/20 18:00 02/11/20 19:58 Temperature 96.9 F L Pulse Rate 52 L 53 L 54 L Respiratory Rate 18 Blo
[2020-02-12] MEDS: hydrALAZINE HCL 25 MG TABLET PO (17:40)
[2020-02-13] VITALS (7 sets, daily range): BP systolic 137–152; BP diastolic 44–50; PULSE 43–59; RESP 14–16; TEMP 36.2–36.3; O2SAT 93–100
--- NOTE | 2020-02-13 01:17 | ECG_ITS ---
Measurements Intervals [place] Rate: 40 P: 21 CT: 162 QRS: -35 QRSD: 98 T: -14 QT: 492 QTc: 406 Interpretive Statements SINUS BRADYCARDIA LEFT AXIS DEVIATION INCOMPLETE RIGHT BUNDLE BRANCH BLOCK VOLTAGE CRITERIA FOR LVH CANNOT RULE OUT SEPTAL INFARCT, AGE INDETERMINATE BORDERLINE ST-T WAVE ABNORMALITY- INFERIOR LEADS ABNORMAL ECG Electronically Signed On 02-13-2020 6:43:45 CDT by Tee Crowder D.O.
--- NOTE | 2020-02-13 08:05 | PM.DS ---
DS: Admitting Diagnosis Admitting Diagnosis Admitting Diagnosis: new onset afib with RVR Patient was admitted to Telemetry unit after she had an episode of dizziness at home. Upon presentation to ED she was found to have A. fib with RVR. Cardiology service was consulted. Patient was started on Sotalol. Her heart rate and rhythm was monotored throughout her hospital stay. Patient was noted to be bradycardic and initial dose of Sotalol was cut in half. Patient converted to sinus rhythm. Patient was discharged home. Sotalol was discontinued. Patient was discharged in stable medical condition. 2DECHO showed EF=65% Lexiscan showed no ischemia Chest xr was clear for any processes. DS: Summary Time Spent with Patient Time attestation: Total time spent providing and/or coordinating discharge services: Exam Narrative: Exam Narrative: Sitting in bed. Const: General: cooperative, healthy appearing, comfortable, alert, awake and Physically active Nutritional Appearance: average body habitus Limitations: no limitations HENMT: Head: normal to inspection and normocephalic Ears: hearing grossly normal bilaterally General nose exam: Normal external nose present Face and sinus: normal facial exam Mouth: Yes Normal oral and palatal mucosa present Eyes: General: appearance normal, both eyes and all related structures Pupils: Equal, round and reactive pupils present EOM: EOMs intact bilaterally Neck: Neck: full ROM, no lymphadenopathy and no JVD Thyroid: thyroid normal Resp: Effort & Inspection: normal respiratory effort Auscultation: clear to auscultation bilaterally Cardio: Heart sounds: S1 normal heart sound present and S2 normal heart sound present GI: Inspection: normal to inspection GI Palp: Yes Soft to palpation and Yes No hepatosplenomegaly present Skin: General skin exam: normal color Lesions: no lesions Rashes: no rashes Wounds: no wounds Neuro: General: patient oriented x3 and CN's II-XI intact bilaterally Cranial nerves: Yes CN's II-XII intact bilaterally and Yes Equal, round and reactive pupils present Motor exam (neuro): 5/5 motor strength present throughout Sensory Exam: normal sensation Extrem: General: full ROM Right upper extremity: normal to inspection Discharge Plan Discharge Attending physician on discharge: Luz Marina Moreau V. Consulting providers: Tee Crowder Discharging Clinician: Luz Marina Moreau V. Patient Disposition: Home, Self-Care Activity: as tolerated Diet: heart healthy Patient Instructions: Antibiotic Form, Sotalol (By mouth), A-fib (Atrial Fibrillation) (GEN), Pain Management (GEN) Stand Alone Forms: General Discharge Information Follow-up/Referrals: Tee Crowder DO [Physician] - 02/20/20 Discharge Medications: Continued losartan 50 mg tablet 50 mg PO DAILY RF: 0 garlic 100 mg Tablet 100 mg PO DAILY RF: 0 milk thistle 175 mg Tablet 175 mg PO DAILY RF: 0 vitamin B complex [B-Complex] Tablet 1 tablet PO DAILY RF: 0 ginkgo biloba 120 mg Tablet 150 mg PO DAILY RF: 0 psyllium husk [Daily Fiber] 0.52 gram Capsule 1,000 g PO DAILY RF: 0 cinnamon bark [Cinnamon] 500 mg Capsule 2,000 mg PO DAILY RF: 0 cholecalciferol (vitamin D3) [Vitamin D3] 25 mcg (1,000 unit) Tablet 25 mcg PO DAILY RF: 0 [place] Oil 1,000 mg Capsule 1 cap PO DAILY RF: 0 cranberry extract-vitamin C 250-60 mg Capsule 500 cap PO DAILY RF: 0 coconut oil 1,000 mg Capsule 1,000 mg PO DAILY RF: 0 [id number] acid-lutein [Adult Multivitamin (w-lutein)] 200-137.5 mcg Tablet,Chewable 1 tablet PO DAILY RF: 0 mayo root-pyridoxine HCl(B6) 325-25 mg Capsule 550 cap PO DAILY RF: 0 Silvino Jensen 1,000 mg PO DAILY RF: 0 Keratan 250 mg PO DAILY RF: 0 Tumeric Curcumin 500 mg PO DAILY RF: 0 Coenzyme Q10 With D3/Mag/Zinc 1 cap/day PO DAILY RF: 0 No Action hydralazine 25 mg tablet 25 mg PO TID Qty: 90 RF: 3
--- NOTE | 2020-02-13 08:13 | PM.PNCARD ---
Progress Note: A&P Assessment and Plan (1) PAF (paroxysmal atrial fibrillation): Code(s): I48.0 - Paroxysmal atrial fibrillation Status: Acute Assessment and Plan: Probably due to hypertension, age, and family history of PAF. On Eliquis 5 mg BID. Started Sotalol 80 mg BID but receiving some 40 mg doses due to bradycardia to keep her in sinus rhythm. Stop Sotalol as it is causing significant bradycardia in 30-40's bpm range. Encourage patient to get up and walk to see if she is feeling well to go home today. If she goes home, have her f/u with me in 1 week. Obtain 30 day event monitor from my office prior to discharge. (2) Hypertension: Qualifiers: Hypertension type: unspecified Qualified Code(s): I10 - Essential (primary) hypertension Code(s): I10 - Essential (primary) hypertension Status: Chronic Assessment and Plan: Improved. Was high last evening. Started Hydralazine 25 mg TID. Subjective Date/time seen: 02/13/20 08:13 Reports feeling weak, tired, no energy with slow HR. She does not want to be on Sotalol anymore. Denies chest pain, sob. Exam Const: General: cooperative, healthy appearing and comfortable Resp: Auscultation: clear to auscultation bilaterally, no crackles, no rales, no rhonchi and no wheezes Cardio: Jugular venous distension: no JVD Rate: bradycardic Rhythm: regular rhythm Heart sounds: no murmurs GI: GI Palp: No abdominal tenderness and Yes Soft to palpation Neuro: General: oriented to person, oriented to place and oriented to time Extrem: Right lower extremity: no edema Left lower extremity: no edema Objective Data Vital Signs Vital Signs: Vital Signs - 24 hr 02/12/20 09:47 02/12/20 10:00 02/12/20 12:00 Temperature 97.1 F L Pulse Rate 55 L 46 L 50 L Respiratory Rate 12 Blood Pressure 140/69 Pulse Oximetry 100 02/12/20 14:00 02/12/20 16:00 02/12/20 18:00 Temperature 96.7 F L Pulse Rate 74 45 L 55 L Respiratory Rate 12 Blood Pressure 175/54 H Pulse Oximetry 100 02/12/20 19:53 02/12/20 20:00 02/12/20 21:32 Temperature 97.1 F L Pulse Rate 50 L 52 L 52 L Respiratory Rate 16 Blood Pressure 146/54 H Pulse Oximetry 98 02/12/20 22:00 02/13/20 00:00 02/13/20 02:00 Temperature 97.4 F L Pulse Rate 46 L 45 L 43 L Respiratory Rate 14 Blood Pressure 138/47 L Pulse Oximetry 99 02/13/20 03:52 02/13/20 04:00 02/13/20 06:00 Temperature 97.4 F L Pulse Rate 44 L 56 L 44 L Respiratory Rate 16 Blood Pressure 137/50 L Pulse Oximetry 93 Intake/Output Intake/Output: Intake & Output 02/10/20 02/11/20 02/12/20 02/13/20 23:59 23:59 23:59 23:59 Intake Total 940 910 400 Output Total 1700 1350 700 Balance -760 440 -300 Meds/Results Medications: Active Medications Generic Name Dose Route Start Last Admin Trade Name Freq PRN Reason Stop Dose Admin Apixaban 5 mg 02/11/20 17:00 02/12/20 16:19 Apixaban 5 Mg Tablet PO 5 mg BID JARRET Administration Hydralazine HCl 25 mg 02/12/20 17:00 02/12/20 17:40 Hydralazine Hcl 25 Mg Tablet PO 25 mg TID JARRET Administration Nitroglycerin 0.4 mg 02/11/20 04:03 Nitroglycerin Sl 0.4 Mg Tablet SUBLINGUAL Q5MIN PRN Chest Pain Ondansetron HCl 4 mg 02/11/20 03:17 Ondansetron Inj 4 Mg/2 Ml Vial IV PUSH Q4H PRN Nausea Radiology Results: ITS Impressions Chest X-Ray 02/11/20 06:43 IMPRESSION: 1. No acute cardiopulmonary disease. Lexiscan Stress Test 02/11/20 13:33 IMPRESSION: 1. Normal myocardial perfusion at rest and during stress. 2. Left ventricular ejection fraction measuring 70%. Quality VTE Prophylaxis VTE prophylaxis: pharmacologic ordered
[2020-02-13] MEDS: APIXABAN 5 MG TABLET PO (09:05)
[2020-02-13] MEDS: hydrALAZINE HCL 25 MG TABLET PO (09:05)
== END 2020-02-13 13:00 | disposition home or self-care (01) | DRG 309 ==
LOC: ANHED 01:56 → ANHIMU 03:47
PROVIDERS: Internal Medicine Cardiovascular Disease; Admitting Provider Family Medicine; Emergency Provider General Practice; Visit Provider Internal Medicine
DX: I48.0 Paroxysmal atrial fibrillation (principal); E87.1 Hypo-osmolality and hyponatremia; I10 Essential (primary) hypertension; R07.9 Chest pain, unspecified
CPT/HCPCS: 36415; 71045; 78452; 80048; 80053; 80061; 81001; 83735; 84439; 84443; 84480; 84484; 85025; 85610; 85730; 93005; 93017; 93306; 96372; 96374; 96376; 99283; 99285; A9270; A9502; G0378; J1650; J2785

== ENCOUNTER 2020-02-21 10:11 | Emergency (ER) | payer MEDICARE, BC, SELFPAY ==
--- NOTE | ~2020-02-21 | XR_ITS ---
EXAMINATION: XR chest 1V portable DATE: 02/21/2020 11:04 INDICATION: Chest pain TECHNIQUE: frontal view of the chest was obtained. COMPARISON: Chest radiograph dated 02/11/2020 FINDINGS: Lung volumes are decreased likely due to more lordotic positioning. Calcified nodule at the medial le ft lung base consistent with old granulomatous disease. No other airspace opacities, pulmonary edema, pleural effusion or pneumothorax. The cardiomediastinal silhouette is normal. IMPRESSION: 1. No acute cardiopulmonary disease. Reviewed, dictated and finalized at location A.
[2020-02-21 10:28] VITALS: BP 208/89; PULSE 89; RESP 21; TEMP 37.1; O2SAT 100
--- NOTE | 2020-02-21 10:28 | ECG_ITS ---
Measurements Intervals [place] Rate: 89 P: 39 [place]: 177 QRS: -35 QRSD: 113 T: 51 QT: 350 QTc: 427 Interpretive Statements SINUS RHYTHM ATRIAL PREMATURE COMPLEX POSSIBLE LEFT ATRIAL ENLARGEMENT LEFT AXIS DEVIATION INTRAVENTRICULAR CONDUCTION DELAY POSSIBLE LEFT VENTRICULAR HYPERTROPHY ANTEROSEPTAL INFARCT, AGE INDETERMINATE BASELINE ARTIFACT- I, II, III, AVR, AVL, AVF ABNORMAL ECG Electronically Signed On 02-21-2020 11:50:06 CDT by Tee Crowder D.O.
[2020-02-21 10:48] LABS: Basophils Percent Auto 0.4 % (0.2-1.2); Eosinophils Absolute Auto 0.1 K/mm3 (0-0.3); Eosinophils Percent Auto 1.3 % (0-4.4); Hematocrit 37.4 % (37.0-47.0); Hemoglobin 13.3 g/dL (12.0-15.0); Immature Granulocyte Absolute 0.01 K/mm3 (0.00-0.031); Immature Granulocyte Percent A 0.1 % (0-0.5); Lymphocytes Absolute Auto 2.01 K/mm3 (0.9-3.2); Lymphocytes Percent Auto 29.7 % (18.3-44.2); Mean Corpuscular HGB Conc 35.6 g/dl (32-36); Mean Corpuscular Hemoglobin 31.6 pg (26-34); Mean Corpuscular Volume 88.8 fl (80-100); Mean Platelet Volume 8.8 fl (7.4-10.4); Monocytes Absolute Auto 0.6 K/mm3 (0.1-0.6); Monocytes Percent Auto 9.3 % (2.6-8.5); Neutrophils Percent Auto 59.2 % (45.5-73.1); Platelet Count Result 300 k/mm3 (150-375); Red Blood Count 4.21 M/mm3 (4.2-5.4); Red Cell Distribution Width 11.4 % (11.5-14.5); White Blood Count 6.8 K/mm3 (4.5-10.0)
[2020-02-21 10:52] LABS: Prothrombin Time 12.7 Seconds (11.1-14.7)
[2020-02-21] MEDS: SODIUM CHLORIDE 0.9% IV 500 ML 999 ML IV CONT (10:53)
[2020-02-21 10:55] LABS: Alanine Aminotransferase 23 U/L (4-35); Albumin Level 4.6 g/dL (3.5-5.1); Alkaline Phosphatase 81 U/L (38-126); Anion Gap 11 mmol/L (8-16); Aspartate Amino Transferase 28 U/L (14-36); Bilirubin,Total 0.5 mg/dL (0.2-1.3); Blood Urea Nitrogen 10 mg/dL (7-17); Calcium 9.4 mg/dL (8.4-10.2); Carbon Dioxide 28 mmol/L (22-30); Chloride 86 mmol/L (98-107); Estimated CRCL calculation 61 ml/min; Estimated Glomerular Filt Rate > 60; Glucose 124 mg/dL (65-105); Potassium 3.6 mmol/L (3.4-5.0); Sodium 125 mmol/L (137-145)
[2020-02-21] MEDS: LORazepam INJ (*CRX) 2 MG/ML VIAL 0.5 MG IV PUSH (11:02)
[2020-02-21 11:07] LABS: NT Pro B Type Natriuretic Pept 121 PG/ML (5-100); Troponin I < 0.012 ng/mL (0.000-0.034)
--- NOTE | 2020-02-21 11:45 | ED.GENADULT ---
HPI - General Adult General Chief complaint: Recheck/Abnormal Lab/Rx Stated complaint: htn Time Seen by Provider: 02/21/20 10:25 Source: patient and EMS Mode of arrival: EMS Limitations: no limitations History of Present Illness HPI narrative: Patient is 79-year-old female who presents to emergency department for evaluation of hypertension patient has been managed by her it desktop support technician Dr. Gill for this had recent increase and her hydralazine which is the only blood pressure medicine. Patient took her blood pressure this morning and was elevated contacted EMS and came to the emergency department did take 2 hydralazine's as she had been instructed to. Patient on arrival is in no distress denies any pain does not appear to be uncomfortable Related Data Home Medications Medication Instructions Recorded Confirmed Silvino Jensen 1,000 mg PO DAILY 02/04/20 02/20/20 Coenzyme Q10 With D3/Mag/Zinc 1 cap/day PO DAILY 02/04/20 02/20/20 Keratan 250 mg PO DAILY 02/04/20 02/20/20 [place] Oil 1 cap PO DAILY 02/04/20 02/20/20 Tumeric Curcumin 500 mg PO DAILY 02/04/20 02/20/20 cholecalciferol (vitamin D3) 25 mcg PO DAILY 02/04/20 02/20/20 [Vitamin D3] cinnamon bark [Cinnamon] 2,000 mg PO DAILY 02/04/20 02/20/20 coconut oil 1,000 mg PO DAILY 02/04/20 02/20/20 cranberry extract-vitamin C 500 cap PO DAILY 02/04/20 02/20/20 garlic 100 mg PO DAILY 02/04/20 02/20/20 mayo root-pyridoxine HCl(B6) 550 cap PO DAILY 02/04/20 02/20/20 ginkgo biloba 150 mg PO DAILY 02/04/20 02/20/20 losartan 50 mg PO DAILY 02/04/20 02/20/20 milk thistle 175 mg PO DAILY 02/04/20 02/20/20 [id number] acid-lutein [Adult 1 tablet PO DAILY 02/04/20 02/20/20 Multivitamin (w-lutein)] psyllium husk [Daily Fiber] 1,000 g PO DAILY 02/04/20 02/20/20 vitamin B complex [B-Complex] 1 tablet PO DAILY 02/04/20 02/20/20 Allergies Allergy/AdvReac Type Severity Reaction Status Date / Time No Known Allergies Allergy Verified 02/21/20 10:38 Review of Systems Review of Systems: All systems reviewed & are unremarkable except as noted in HPI and below PMFSH Past Medical History Medical History (Updated 02/21/20 @ 12:28 by Harinder Ozuna PA-C) HTN (hypertension) Surgical History Surgical History No significant past surgical history Family History Family History Mother Heart disease Cerebrovascular accident Father Heart disease Cancer Sibling Heart disease Social History Social History Smoking status: Never smoker Alcohol intake: current Drinks per week: 2 Substance use: never Substance use type: does not use Gender identity (if verbalized by the patient): Female Spiritual care concerns: No Exam Narrative: Exam Narrative: GENERAL: Well-appearing, well-nourished, and in no acute distress. HEAD: Normocephalic, atraumatic. EYES: PERRLA and EOMI. ENT: Nares clear, no rhinorrhea or epistaxis. Mucous membranes moist. Oropharynx without tonsillar hypertrophy exudate or other lesions. NECK: Supple. No adenopathy or masses. No carotid bruits or JVD CHEST: Clear to auscultation. No respiratory distress. No wheezes rales or rhonchi HEART: Regular rate and rhythm. No murmur heard. Normal peripheral pulses. ABDOMEN: Soft, nontender, nondistended EXTREMITIES: Normal range of motion. No edema. SKIN: Warm, dry, no rash. NEURO: No focal deficits. Alert and oriented x3. Cranial nerves II through XII grossly intact PSYCH: Normal mood and affect. Course Course Emergency Course: Patient in the room in no distress resting comfortably no high risk changes in the blood work or imaging aware of discussion with cardiology and recommendations patient will only take the increased hydralazine dose does not want to take the losartan patient notes that this in the past had caused
[2020-02-21] MEDS: hydrALAZINE HCL 20 MG/ML VIAL 10 MG IV PUSH (11:46)
[2020-02-21 11:57] LABS: Add Urine Microscopic? NO; Appearance Urine Clear (Clear); Bilirubin Urine Negative (Negative); Blood Urine Negative (Negative); Color Urine Yellow (Yellow); Glucose Urine UA Negative (Negative); Ketones Urine Negative (Negative); Leukocyte Esterase Ur Negative LEU/UL (Negative); Nitrate Urine Negative (Negative); Protein Urine Negative (Negative); Urobilinogen Urine Negative mg/dL (<2.0)
[2020-02-21 12:02] LABS: Specific Grav Ur 1.004 (1.001-1.035)
[2020-02-21 12:24] VITALS: BP 144/59; PULSE 81; RESP 18; O2SAT 94
[2020-02-21 12:41] VITALS: BP 134/57; PULSE 89; RESP 20; O2SAT 100
== END 2020-02-21 12:41 | disposition home or self-care (01) ==
PROVIDERS: Emergency Medicine Emergency Medical Services; Emergency Provider Emergency Medicine
DX: I10 Essential (primary) hypertension (principal); I49.1 Atrial premature depolarization; R94.31 Abnormal electrocardiogram [ECG] [EKG]; I45.9 Conduction disorder, unspecified
CPT/HCPCS: 36415; 71045; 80053; 81003; 83880; 84484; 85025; 85610; 85730; 93005; 96361; 96374; 96375; 99284; J0360; J2060; J7040

== ENCOUNTER 2020-02-23 21:56 | Inpatient (IN) | payer MEDICARE, BC, SELFPAY ==
--- NOTE | ~2020-02-23 | CT_ITS ---
EXAMINATION: CT chest w con DATE: 02/24/2020 00:16 INDICATION: Left lower lung nodular density on 02/23/2020 chest radiograph TECHNIQUE: Computed tomography (CT) of the chest was performed without intravenous contrast. Automate d exposure control and iterative reconstruction technique were employed. Exam dose: 150.33 mGy-cm to eber exam DLP. COMPARISON: 02/23/2020 portable AP chest FINDINGS: There is a 1.5 x 1.3 cm noncalcified solid mass in the left lower lobe, there is suspicious for primary lung cancer. No other pulmonary mass lesion is noted. There are scattered areas of disco id atelectasis or scarring in the lungs. No pulmonary consolidation. Normal heart size. No pericardial or pleural effusion. No hilar or mediastinal mass lesion or lymphadenopathy. No thoracic aortic aneurysm or dissection. 2 cm gallstone is incidentally noted. Adrenal glands are unremarkable. Degenerative changes of the cervical and thoracic spine. Old fracture deformity of the body of the sternum. IMPRESSION: 1.5 cm left lower lobe mass, suspicious for primary lung cancer Cholelithiasis Reviewed, dictated and finalized at [facility]. Reviewed, dictated and finalized at [facility].
--- NOTE | ~2020-02-23 | XR_ITS ---
EXAMINATION: XR chest 1V portable 02/23/2020 23:04 INDICATION: Chest palpitations PROCEDURE: AP portable chest COMPARISON: Comparison to multiple prior studies sequentially, with oldest reviewed study dated 03/01. FINDINGS: There are infiltrates in the left midlung zone. There is a nodular density overlying the ca rdiac contour. The cardiomediastinal silhouette is within normal limits. There are no pleural effusi ons. There is no pneumothorax suspected. IMPRESSION: 1: Infiltrates of the left midlung zone which may represent atelectasis or developing pneumonia. 2: Nodular density overlying the cardiac contour. Correlation with CT chest recommended to exclude pa renchymal mass. Reviewed, dictated and finalized at location [facility]. IMPRESSION: 1: Infiltrates of the left midlung zone which may represent atelectasis or dev eloping pneumonia. 2: Nodular density overlying the cardiac contour. Correlation with CT chest rec ommended to exclude parenchymal mass.
[2020-02-23 22:00] VITALS: BP 204/84; PULSE 88; RESP 21; TEMP 36.7; O2SAT 97
[2020-02-23 22:15] VITALS: BP 186/68; PULSE 83; RESP 22; O2SAT 98
--- NOTE | 2020-02-23 22:17 | ECG_ITS ---
Measurements Intervals [place] Rate: 85 P: 52 [place]: 163 QRS: -37 QRSD: 104 T: 49 QT: 367 QTc: 437 Interpretive Statements SINUS RHYTHM LEFT AXIS DEVIATION VOLTAGE CRITERIA FOR LVH BORDERLINE R WAVE PROGRESSION, ANTERIOR LEADS BASELINE ARTIFACT- I, II, III, AVR, AVF, V1 BORDERLINE ECG Electronically Signed On 02-24-2020 6:59:08 CDT by Tee Crowder D.O.
--- NOTE | 2020-02-23 22:22 | ED.GENADULT ---
HPI - General Adult General Chief complaint: Unspecified Stated complaint: heart Time Seen by Provider: 02/23/20 21:57 Source: patient Mode of arrival: EMS Limitations: other (patient states she is tired of talking and repeating herself) History of Present Illness HPI narrative: This is a 79 year old female with history of hypertension and paroxysymal afib who presents via EMS for evaluation of anxiousness and palpitations. Patient is not giving a clear explanation of her exact reason for today's visit. She states she is tired of having to answer questions repeatedly. Nursing staff reports she called prior to coming to the ER. During that call, she told them that she was anxious and she did not feel well. She told them she knew she was not in afib but she was worried about what if she went into the arrhythmia. She called and asked what she should do since she was worried about going into afib. Patient does states she is not having chest pain or sob. She reports she currently feels like her heart is racing. She also states she has been drinking alot of water because she was told by her foreign service teacher to drink plenty of water. She is taking eliquis BID and hydralazine TID. She thinks she took an extra dose of hydralazine. She also states she took amlodipine today and she took aspirin because she was having palpitations. Related Data Home Medications Medication Instructions Recorded Confirmed Silvino Jensen 1,000 mg PO DAILY 02/04/20 02/20/20 Coenzyme Q10 With D3/Mag/Zinc 1 cap/day PO DAILY 02/04/20 02/20/20 Keratan 250 mg PO DAILY 02/04/20 02/20/20 [place] Oil 1 cap PO DAILY 02/04/20 02/20/20 Tumeric Curcumin 500 mg PO DAILY 02/04/20 02/20/20 cholecalciferol (vitamin D3) 25 mcg PO DAILY 02/04/20 02/20/20 [Vitamin D3] cinnamon bark [Cinnamon] 2,000 mg PO DAILY 02/04/20 02/20/20 coconut oil 1,000 mg PO DAILY 02/04/20 02/20/20 cranberry extract-vitamin C 500 cap PO DAILY 02/04/20 02/20/20 garlic 100 mg PO DAILY 02/04/20 02/20/20 mayo root-pyridoxine HCl(B6) 550 cap PO DAILY 02/04/20 02/20/20 ginkgo biloba 150 mg PO DAILY 02/04/20 02/20/20 milk thistle 175 mg PO DAILY 02/04/20 02/20/20 [id number] acid-lutein [Adult 1 tablet PO DAILY 02/04/20 02/20/20 Multivitamin (w-lutein)] psyllium husk [Daily Fiber] 1,000 g PO DAILY 02/04/20 02/20/20 vitamin B complex [B-Complex] 1 tablet PO DAILY 02/04/20 02/20/20 apixaban [Eliquis] 5 mg PO BID 02/24/20 aspirin [Adult Low Dose Aspirin] 81 mg PO DAILY 02/24/20 Allergies Allergy/AdvReac Type Severity Reaction Status Date / Time No Known Allergies Allergy Verified 02/24/20 00:36 Review of Systems Review of Systems: All systems reviewed & are unremarkable except as noted in HPI and below Cardiovascular: Cardiovascular: Denies chest pain and Denies radiating jaw, neck or arm pain Respiratory: Respiratory: Denies cough and Denies dyspnea Gastrointestinal: Gastrointestinal: Denies nausea Musculoskeletal: Musculoskeletal: Reports back pain Neurologic: Denies numbness Psychiatric: Psychiatric: Reports anxiety, Denies homicidal ideation and Denies suicidal ideation [facility] Past Medical History Medical History (Updated 02/24/20 @ 01:51 by Radha Garcia MD) Chronic hyponatremia HTN (hypertension) PAF (paroxysmal atrial fibrillation) Surgical History Surgical History No significant past surgical history Family History Family History Mother Heart disease Cerebrovascular accident Father Heart disease Cancer Sibling Heart disease Social History Social History Smoking status: Never smoker Alcohol intake: current Drinks per week: 2 Substance use: never Substance use type: does not use Gender identity (if verbalized by the patient): Female Spiritual care
[2020-02-23 22:46] VITALS: BP 192/82; PULSE 86; RESP 19; O2SAT 97
--- NOTE | 2020-02-23 22:59 | PC.NURSE ---
EXPLAINED TO PT THAT STRAIGHT CATHETERIZATION IS NECESSARY TO DRAIN THE REMAINING 497 MLS OF URINE OUT OF HER BLADDER. PT STATES SHE REFUSES THE STRAIGHT CATHETERIZATION, AND PROCEEDED TO VOID A MODERATE TO LARGE AMOUNT OF URINE IN THE ED GURNEY. WILL BLADDER-SCAN PT FOR POST VOID RESIDUAL AGAIN MOMENTARILY.
[2020-02-23 23:00] VITALS: BP 177/85; PULSE 84; RESP 21; O2SAT 99
[2020-02-23 23:06] LABS: Basophils Percent Auto 0.3 % (0.2-1.2); Eosinophils Absolute Auto 0.1 K/mm3 (0-0.3); Eosinophils Percent Auto 1.1 % (0-4.4); Hematocrit 36.7 % (37.0-47.0); Hemoglobin 13.2 g/dL (12.0-15.0); Immature Granulocyte Absolute 0.02 K/mm3 (0.00-0.031); Immature Granulocyte Percent A 0.3 % (0-0.5); Lymphocytes Absolute Auto 2.05 K/mm3 (0.9-3.2); Lymphocytes Percent Auto 25.7 % (18.3-44.2); Mean Corpuscular Hemoglobin 31.7 pg (26-34); Mean Platelet Volume 8.3 fl (7.4-10.4); Monocytes Absolute Auto 0.8 K/mm3 (0.1-0.6); Monocytes Percent Auto 9.8 % (2.6-8.5); Neutrophils Percent Auto 62.8 % (45.5-73.1); Platelet Count Result 308 k/mm3 (150-375); Red Blood Count 4.17 M/mm3 (4.2-5.4); Red Cell Distribution Width 11.3 % (11.5-14.5)
[2020-02-23 23:18] LABS: INR 1.1; Prothrombin Time 13.5 Seconds (11.1-14.7)
--- NOTE | 2020-02-23 23:20 | PC.NURSE ---
PT BLADDER SCANNED FOR PVR OF 459 S/P URINATING IN THE ED GURNEY. PT CONTINUES TO REFUSE STRAIGHT CATHETERIZATION.
[2020-02-23 23:38] LABS: Troponin I < 0.012 ng/mL (0.000-0.034)
[2020-02-23 23:40] LABS: Alanine Aminotransferase 21 U/L (4-35); Albumin Level 4.4 g/dL (3.5-5.1); Alkaline Phosphatase 86 U/L (38-126); Anion Gap 11 mmol/L (8-16); Aspartate Amino Transferase 29 U/L (14-36); Bilirubin,Total 0.5 mg/dL (0.2-1.3); Blood Urea Nitrogen 8 mg/dL (7-17); Calcium 9.1 mg/dL (8.4-10.2); Carbon Dioxide 27 mmol/L (22-30); Chloride 82 mmol/L (98-107); Estimated CRCL calculation 63 ml/min; Estimated Glomerular Filt Rate > 60; Glucose 120 mg/dL (65-105); Magnesium 1.7 mg/dL (1.6-2.3); Potassium 3.7 mmol/L (3.4-5.0); Sodium 120 mmol/L (137-145)
[2020-02-23 23:52] VITALS: BP 181/73; PULSE 84
[2020-02-24] VITALS (15 sets, daily range): BP systolic 113–190; BP diastolic 48–90; PULSE 60–97; RESP 18–20; TEMP 36.4–36.9; O2SAT 96–99; BMI 28.2
[2020-02-24 00:23] LABS: Add Urine Microscopic? YES; Appearance Urine Clear (Clear); Bilirubin Urine Negative (Negative); Blood Urine Negative (Negative); Color Urine Colorless (Yellow); Glucose Urine UA Negative (Negative); Ketones Urine Trace mg/dL (Negative); Leukocyte Esterase Ur Trace LEU/UL (Negative); Nitrate Urine Negative (Negative); Protein Urine Negative (Negative); RBC Urine 0-2 /hpf (0-2); Specific Grav Ur 1.006 (1.001-1.035); Squamous Epithelial Cell Urine Rare /hpf (Few); Urobilinogen Urine Negative mg/dL (<2.0); WBC Urine 0-3 /hpf
--- NOTE | 2020-02-24 02:25 | PM.IMHP ---
H&P: HPI History of Present Illness Date/Time: 02/24/20 02:25 Chief complaint: Hyponatremia/Anxiety Narrative: This is a 79 year old female known to me from a recent hospitalization for paroxysmal atrial fibrillation who presented to the hospital this evening with a complaint of increased anxiety. The patient was very worried that she might be going into atrial fibrillation again and decided to come to the hospital. Associated symptoms include palpitations but no chest pain. She has been drinking increased amounts of water because she was told by her crayon sorting machine feeder, Dr. Crowder to drink plenty of water. She is taking eliquis BID and hydralazine TID. She thinks she took an extra dose of hydralazine. She also states she took amlodipine today and she took aspirin because she was having palpitations. She also admitted that she has been trying to urinate less so she has more fluid in her body to help prevent her from going into atrial fibrillation. She denies any recent falls or trauma. She is not known to be on any diuretics. On routine labs she was found to be hyponatremic with a serum sodium of 120. We were asked to admit the patient to the hospital for her hyponatremia. She has no other complaints. Review of Systems Review of Systems: All systems reviewed & are unremarkable except as noted in HPI and below PMFSH Past Medical History Medical History Chronic hyponatremia HTN (hypertension) PAF (paroxysmal atrial fibrillation) Surgical History Surgical History No significant past surgical history Family History Family History Mother Heart disease Cerebrovascular accident Father Heart disease Cancer Sibling Heart disease Social History Social History Smoking status: Never smoker Alcohol intake: current Drinks per week: 6 Substance use: never Substance use type: does not use Gender identity (if verbalized by the patient): Female Spiritual care concerns: No Meds Home Medications and Allergies Home Medications Medication Instructions Recorded Confirmed Type Silvino Jensen 1,000 mg PO DAILY 02/04/20 02/24/20 History Coenzyme Q10 With D3/Mag/Zinc 1 cap/day PO DAILY 02/04/20 02/24/20 History Keratan 250 mg PO DAILY 02/04/20 02/24/20 History [place] Oil 1 cap PO DAILY 02/04/20 02/24/20 History Tumeric Curcumin 500 mg PO DAILY 02/04/20 02/24/20 History cholecalciferol (vitamin D3) 25 mcg PO DAILY 02/04/20 02/24/20 History [Vitamin D3] cinnamon bark [Cinnamon] 2,000 mg PO DAILY 02/04/20 02/24/20 History coconut oil 1,000 mg PO DAILY 02/04/20 02/24/20 History cranberry extract-vitamin C 500 cap PO DAILY 02/04/20 02/24/20 History garlic 100 mg PO DAILY 02/04/20 02/24/20 History mayo root-pyridoxine HCl(B6) 550 cap PO DAILY 02/04/20 02/24/20 History ginkgo biloba 150 mg PO DAILY 02/04/20 02/24/20 History milk thistle 175 mg PO DAILY 02/04/20 02/24/20 History sy-gkr-cpohc acid-lutein [Adult 1 tablet PO DAILY 02/04/20 02/24/20 History Multivitamin (w-lutein)] psyllium husk [Daily Fiber] 1,000 g PO DAILY 02/04/20 02/24/20 History vitamin B complex [B-Complex] 1 tablet PO DAILY 02/04/20 02/24/20 History hydralazine 25 mg tablet 25 mg PO TID #90 tablet 02/13/20 02/24/20 Rx apixaban [Eliquis] 5 mg PO BID 02/24/20 02/24/20 History Allergies Allergy/AdvReac Type Severity Reaction Status Date / Time No Known Allergies Allergy Verified 02/24/20 20:17 Vital Signs Vital Signs - 24 hr 02/23/20 22:00 02/23/20 22:15 02/23/20 22:46 Temperature 36.7 C Pulse Rate 88 83 86 Respiratory Rate 21 H 22 H 19 Blood Pressure 204/84 H 186/68 H 192/82 H Pulse Oximetry 97 98 97 02/23/20 23:00 02/23/20 23:52 02/24/20 00:00 Temperature Pulse Rate 84 84 82 Respiratory Ra
[2020-02-24] MEDS: LORazepam INJ (*CRX) 2 MG/ML VIAL 0.5 MG IV PUSH (02:53)
--- NOTE | 2020-02-24 03:03 | ADMGEN ---
This patient, Audrey Bright, was admitted to 3 [facility] Surg Room 319-01. Patient/family oriented to hospital policies and general routines including ID bracelet, bed and alarms, visiting hours, pain management, procedures, bathroom and other care routines, personal items, smoking policy, room service/diet, and visiting hours. Information on how to activate the Rapid Response Team has been discussed. Patient/Family are encouraged to report perceived risks to care and to ask questions if they do not understand what they are told or what they should do.
--- NOTE | 2020-02-24 08:17 | PC.NURSE ---
Called Niru REYES. asked if she wanted to start IV fluids since this pt had 0ml po order. New orders recieved for 1,000 ml 24 hour intake total. no IV fluids at this time.
--- NOTE | 2020-02-24 10:24 | PC.NURSE ---
Daughter of patient . Christen Edwards [phone]
[2020-02-24] MEDS: VITAMIN B COMPLEX CAPSULE 1 CAP PO (10:34)
[2020-02-24] MEDS: APIXABAN 5 MG TABLET PO ×2 (10:34→18:27)
[2020-02-24] MEDS: CHOLECALCIFEROL 1,000 UNITS TABLET 1000 UNITS PO (10:34)
[2020-02-24] MEDS: hydrALAZINE HCL 25 MG TABLET PO ×3 (10:34→18:27)
[2020-02-24] MEDS: MULTIVITAMINS /C LUTEIN (CENTRUM SILVER) TABLET *BKC 1 TAB PO (10:35)
[2020-02-24 11:13] LABS: Sodium Urine Random 21 meq/L
[2020-02-24 13:25] LABS: Glucose Point of Care 83 (65-105)
--- NOTE | 2020-02-24 14:20 | PM.IMPN ---
Progress Note: A&P Assessment and Plan (1) Acute hyponatremia: Code(s): E87.1 - Hypo-osmolality and hyponatremia Status: Acute Assessment and Plan: ----- patient's sodium was 125 on admission down to 120 today. It looks like her averages around 131. The patient's daughter states that her photoengraver told her to drink a lot a water and she has been drinking water nonstop since being home. This is likely the cause of her hyponatremia we have put her on a fluid restriction. Repeat sodium later today has been ordered and we will watch her again overnight. She said she has some dizziness with this earlier in the stay but it has improved. I talked to the patient about the importance of not drinking too much water and she agrees. I also spoke with her daughter about this and she wanted her to start on SSRI but at this time with her sodium being low, I do not recommend that. For anxiety will start BuSpar. (2) PAF (paroxysmal atrial fibrillation): Code(s): I48.0 - Paroxysmal atrial fibrillation Status: Acute Assessment and Plan: ----- currently in normal sinus rhythm. Continue Eliquis (3) Hypertension: Qualifiers: Hypertension type: unspecified Qualified Code(s): I10 - Essential (primary) hypertension Code(s): I10 - Essential (primary) hypertension Status: Chronic Assessment and Plan: ----- last blood pressure 156/75 But has been much higher on admission. Continue hydralazine. The patient has a history of bradycardia so I am reluctant to start Cardizem or metoprolol. I am going to add Norvasc for blood pressure control. . (4) Anxiety about health: Code(s): F41.8 - Other specified anxiety disorders Status: Acute Assessment and Plan: -----Avoid SSRIs since pt has hyponatremia. She has been more anxious since her last year. Will start buspar. she also has PRN ativan while hospitalized. (5) Lung nodule: Code(s): R91.1 - Solitary pulmonary nodule Status: Acute Assessment and Plan: -----CT reads she has a lung mass but it is small, 1.5 cm. Spoke to the pt about this and she needs a f/u and likely biopsy with pulmonology. No plans to do that here at this time. Educated her that it could be old infection but cannot rule out cancer. She is a lifelong non smoker and has not been around chemicals with her job. Time Spent With Patient Time with patient: 25 - 35 minutes Subjective Date/time seen: 02/24/20 14:20 Interval history: Pt is a 79-year-old female here for hyponatremia and palpitations. The patient states that she is doing well and has no complaints. She has not had any further palpitations, chest pain or shortness of breath since being here. She is eating and drinking well. She denies chest pain, shortness of breath, fevers, chills, nausea, vomiting, diarrhea or constipation. I talked to her about the lung nodule found on CT and she is going to follow up with a interior mechanic. I called and talked her daughter Denise about her sodium and the plan of care. Denise's states that the patient has been very anxious since last year when her . is she also reports that her mom worries about her health and often thinks that she has many life-threatening illnesses and tries to self medicate but sometimes goes a little over board. Review of Systems Review of Systems: All systems reviewed & are unremarkable except as noted in HPI and below Exam Narrative: Exam Narrative: General: Well developed well nourished patient in NAD HEENT: normocephalic Neck: supple Neuro: Alert and oriented x4 CV:RRR. Telemetry shows normal sinus rhythm with no AFib Resp:CTA Abd: Soft, non distended. No pain to palpation. Positive bowel sounds Extremities: No swelling, erythema, or pain to palpation. Objective Data Vital Signs Vital Signs: Vital Signs - 24 hr 02/23/20 22:00
[2020-02-24] MEDS: busPIRone HCL 5 MG TABLET PO ×2 (14:53→20:10)
[2020-02-24 15:21] LABS: Sodium 125 mmol/L (137-145)
[2020-02-24 18:22] LABS: Glucose Point of Care 111 (65-105)
[2020-02-24 23:59] LABS: Glucose Point of Care 89 (65-105)
[2020-02-25] VITALS (10 sets, daily range): BP systolic 113–147; BP diastolic 40–52; PULSE 55–97; RESP 18; TEMP 36.4–36.9; O2SAT 97–100
[2020-02-25 06:46] LABS: Anion Gap 7 mmol/L (8-16); Blood Urea Nitrogen 10 mg/dL (7-17); Calcium 8.9 mg/dL (8.4-10.2); Carbon Dioxide 29 mmol/L (22-30); Chloride 91 mmol/L (98-107); Estimated CRCL calculation 54 ml/min; Estimated Glomerular Filt Rate > 60; Glucose 93 mg/dL (65-105); Sodium 127 mmol/L (137-145)
[2020-02-25] MEDS: VITAMIN B COMPLEX CAPSULE 1 CAP PO (09:25)
[2020-02-25] MEDS: CHOLECALCIFEROL 1,000 UNITS TABLET 1000 UNITS PO (09:25)
[2020-02-25] MEDS: MULTIVITAMINS /C LUTEIN (CENTRUM SILVER) TABLET *BKC 1 TAB PO (09:25)
[2020-02-25] MEDS: APIXABAN 5 MG TABLET PO ×2 (09:25→17:14)
[2020-02-25] MEDS: hydrALAZINE HCL 25 MG TABLET PO ×3 (09:25→17:14)
[2020-02-25] MEDS: busPIRone HCL 5 MG TABLET PO ×2 (09:25→20:51)
[2020-02-25 09:41] LABS: Glucose Point of Care 246 (65-105)
[2020-02-25 12:05] LABS: Sodium 127 mmol/L (137-145)
[2020-02-25 12:55] LABS: Glucose Point of Care 107 (65-105)
--- NOTE | 2020-02-25 13:15 | PM.IMPN ---
Progress Note: A&P Assessment and Plan (1) Acute hyponatremia: Code(s): E87.1 - Hypo-osmolality and hyponatremia Status: Acute Assessment and Plan: ----- patient's sodium was 125 on admission down to 120 yesterday and back up to 127 today. Her baseline is around 131 and I was hoping to get her closer to her baseline. I am going to draw a urine sodium, urine creatinine and protein, and TSH. She has possible lung cancer, consider SIADH but seems unlikely. No medications that can be causing it. She is relatively asymptomatic with this, she gets dizzy every once in a while which seems to be associated with her hyponatremia. The patient's daughter states that her adult educator told her to drink a lot a water and she has been drinking water nonstop since being home. This is likely the cause of her hyponatremia we have put her on a fluid restriction. I also spoke with her daughter about this and she wanted her to start on SSRI but at this time with her sodium being low, I do not recommend that. For anxiety will start BuSpar. Will ask nephrology to see her and I appreciate their recommendations. (2) PAF (paroxysmal atrial fibrillation): Code(s): I48.0 - Paroxysmal atrial fibrillation Status: Acute Assessment and Plan: ----- currently in normal sinus rhythm. Continue Eliquis (3) Hypertension: Qualifiers: Hypertension type: unspecified Qualified Code(s): I10 - Essential (primary) hypertension Code(s): I10 - Essential (primary) hypertension Status: Chronic Assessment and Plan: ----- last blood pressure 115/49 But has been much higher on admission. Continue hydralazine and norvasc added 02/25. The patient has a history of bradycardia so I am reluctant to start Cardizem or metoprolol. I am going to add Norvasc for blood pressure control. . (4) Anxiety about health: Code(s): F41.8 - Other specified anxiety disorders Status: Acute Assessment and Plan: -----Avoid SSRIs since pt has hyponatremia. She has been more anxious since her last year. Continue buspar. she also has PRN ativan while hospitalized. (5) Lung nodule: Code(s): R91.1 - Solitary pulmonary nodule Status: Acute Assessment and Plan: -----CT reads she has a lung mass but it is small, 1.5 cm. Spoke to the pt and family about this and she needs a f/u and likely biopsy with pulmonology. No plans to do that here at this time. Educated her that it could be old infection but cannot rule out cancer. She is a lifelong non smoker and has not been around chemicals with her job. She was, however, around 2nd hand smoke most of her life. Additional Plan . Subjective Date/time seen: 02/25/20 13:15 Interval history: Pt is a 79-year-old female here for hyponatremia and palpitations. The patient is doing well with no complaints today. Pt denies nausea, vomiting, fevers, chills, constipation, diarrhea, chest pain, sob, or abdominal pain. Spoke with the daughter about the plan of care, she agrees. The patient had a little dizziness with the BuSpar yesterday but overall doing better. Exam Narrative: Exam Narrative: General: Well developed well nourished patient in NAD HEENT: normocephalic Neck: supple Neuro: Alert and oriented x4 CV:RRR. Telemetry shows normal sinus rhythm with no AFib Resp:CTA Abd: Soft, non distended. No pain to palpation. Positive bowel sounds Extremities: No swelling, erythema, or pain to palpation. Objective Data Vital Signs Vital Signs: Vital Signs - 24 hr 02/24/20 14:00 02/24/20 16:30 02/24/20 20:00 Temperature 98.0 F Pulse Rate 65 60 69 Respiratory Rate 18 Blood Pressure 126/48 L Pulse Oximetry 98 02/24/20 22:00 02/25/20 00:00 02/25/20 04:00 Temperature 98.4 F Pulse Rate 64 71 56 L Respiratory Rate 18 Blood Pressure 113/48 L Pulse Oximetry 97 02/25/20 05:49 02/25/20 09:
--- NOTE | 2020-02-25 16:35 | PM.CNNEP ---
Assessment and Plan Assessment and plan (1) Hyponatremia: Code(s): E87.1 - Hypo-osmolality and hyponatremia Status: Acute Assessment and Plan: acute on chronic - baseline sodium level runs ~ 129 - 131 suspect acute decline due to increased free water intake recently improvement in sodium since she was not below 120, risk of side effects of overcorrection is less likely however, goal of rate of change is 6 - 9mmol/L in 24 hours to complete work up - will check TSH, cortisol, SPE/UPE and serum/urine osmolality follow trend of repeat sodium (2) Hypertension: Qualifiers: Hypertension type: unspecified Qualified Code(s): I10 - Essential (primary) hypertension Code(s): I10 - Essential (primary) hypertension Status: Chronic Assessment and Plan: reasonable control follow hemodynamics (3) PAF (paroxysmal atrial fibrillation): Code(s): I48.0 - Paroxysmal atrial fibrillation Status: Acute Assessment and Plan: continue care controlled strategy on anticoagulation (4) Lung nodule: Code(s): R91.1 - Solitary pulmonary nodule Status: Acute Assessment and Plan: partly to blame for #2 Will continue to follow. History of Present Illness Reason for Consult Consult date: 02/25/20 Reason for consult: hyponatremia Chief Complaint Chief complaint: Hyponatremia/Anxiety History of Present Illness Narrative: The patient is a 79 year old female with a past medical history as outlined below who presented to [facility] ER with increased anxiety. Apparently, the patient was concerned that she may acute He going back into AFib with RVR so she decided to come the emergency room for further evaluation. She was just recently in the hospital for about of atrial fibrillation that responded to medical management/therapy prior to discharge. On her recent visit with her pin cleaner, she was told to increase her fluid intake but apparently there is some concern that her fluid intake has been somewhat excessive. Furthermore, she also gives a history that she has been trying to urinate less in effort to retain more fluid thinking this would be helpful in reducing her bouts of atrial fibrillation. Workup and evaluation emergency room demonstrated the patient to be hemodynamically stable but routine blood test demonstrated that she had significant hyponatremia with a serum sodium of 120. due to this finding as well as her anxiety and concerns regarding her atrial fibrillation, she was admitted the hospital for further evaluation and therapy. Renal consultation was requested due to her acute hyponatremia. From review of records, it would seem the patient has some degree of chronic hyponatremia at baseline with a serum sodium running around 129 - 131 mmol/L Arguing that she has a chronic component of hyponatremia at baseline. Since her admission, her sodium level has improved just with fluid restriction alone With her most recent serum sodium noted to be 127. Currently, at the time my evaluation, the patient appears to be in no acute distress. Review of Systems Review of Systems: Narrative: As per HPI. [facility] Past Medical History Medical History Chronic hyponatremia HTN (hypertension) PAF (paroxysmal atrial fibrillation) Surgical History Surgical History No significant past surgical history Family History Family History Mother Heart disease Cerebrovascular accident Father Heart disease Cancer Sibling Heart disease Social History Social History Smoking status: Never smoker Alcohol intake: current Drinks per week: 6 Substance use: never Substance use type: does not use
[2020-02-25 17:23] LABS: Glucose Point of Care 87 (65-105)
[2020-02-25 19:23] LABS: Creatinine Urine 145.1 mg/dL; Total Protein Urine Random 11 mg/dL
[2020-02-25 19:25] LABS: Sodium Urine Random 24 meq/L
[2020-02-25 21:00] LABS: Glucose Point of Care 106 (65-105)
[2020-02-26] VITALS: PULSE 58
[2020-02-26 02:42] LABS: Creatinine Urine 54.8 mg/dL
[2020-02-26 02:56] LABS: Sodium Urine Random 19 meq/L
[2020-02-26 04:00] VITALS: PULSE 61
[2020-02-26 06:00] VITALS: BP 151/54; PULSE 66; RESP 18; TEMP 36.8; O2SAT 99
[2020-02-26 06:37] LABS: Hemoglobin 12.1 g/dL (12.0-15.0); Mean Corpuscular HGB Conc 34.6 g/dl (32-36); Mean Corpuscular Hemoglobin 31.9 pg (26-34); Mean Corpuscular Volume 92.3 fl (80-100); Mean Platelet Volume 8.4 fl (7.4-10.4); Platelet Count Result 314 k/mm3 (150-375); Red Blood Count 3.79 M/mm3 (4.2-5.4); Red Cell Distribution Width 11.8 % (11.5-14.5); White Blood Count 8.2 K/mm3 (4.5-10.0)
[2020-02-26 06:46] LABS: Anion Gap 6 mmol/L (8-16); Blood Urea Nitrogen 12 mg/dL (7-17); Calcium 8.7 mg/dL (8.4-10.2); Carbon Dioxide 30 mmol/L (22-30); Chloride 96 mmol/L (98-107); Estimated CRCL calculation 63 ml/min; Estimated Glomerular Filt Rate > 60; Glucose 95 mg/dL (65-105); Potassium 4.3 mmol/L (3.4-5.0); Sodium 132 mmol/L (137-145)
[2020-02-26 06:47] LABS: Albumin Level 3.9 g/dL (3.5-5.1); Anion Gap 6 mmol/L (8-16); Blood Urea Nitrogen 11 mg/dL (7-17); Calcium 8.8 mg/dL (8.4-10.2); Carbon Dioxide 30 mmol/L (22-30); Chloride 96 mmol/L (98-107); Estimated CRCL calculation 63 ml/min; Estimated Glomerular Filt Rate > 60; Glucose 93 mg/dL (65-105); Potassium 4.4 mmol/L (3.4-5.0); Sodium 132 mmol/L (137-145)
[2020-02-26 08:00] VITALS: PULSE 64
[2020-02-26 08:32] LABS: Glucose Point of Care 80 (65-105)
[2020-02-26] MEDS: busPIRone HCL 5 MG TABLET PO (08:58)
[2020-02-26] MEDS: APIXABAN 5 MG TABLET PO (08:58)
[2020-02-26] MEDS: CHOLECALCIFEROL 1,000 UNITS TABLET 1000 UNITS PO (08:59)
[2020-02-26] MEDS: MULTIVITAMINS /C LUTEIN (CENTRUM SILVER) TABLET *BKC 1 TAB PO (08:59)
[2020-02-26] MEDS: VITAMIN B COMPLEX CAPSULE 1 CAP PO (08:59)
[2020-02-26] MEDS: hydrALAZINE HCL 25 MG TABLET PO (08:59)
[2020-02-26 09:02] LABS: Free T4 Free Thyroxine Reflex 1.14 ng/dL (0.78-2.19)
[2020-02-26 10:39] LABS: Total Triiodothyronine (T3) 1.07 NG/ML (0.97-1.69)
--- NOTE | 2020-02-26 10:51 | PM.DS ---
DS: Admitting Diagnosis Admitting Diagnosis Admitting Diagnosis: Hyponatremia/Anxiety DS: Discharge Diagnosis Discharge Diagnosis (1) Acute hyponatremia: Code(s): E87.1 - Hypo-osmolality and hyponatremia Status: Acute Assessment and Plan: ----- patient's sodium was 125 on admission and got down to 120 but them improved to 132 day of discharge. Her baseline is around 131. She has possible lung cancer, consider SIADH but seems unlikely. Meds reviewed, unlikely medications to be causing it. She is relatively asymptomatic with this, she gets dizzy every once in a while which doesn't seem to be associated with her hyponatremia. The patient's daughter states that her retail advertising account executive told her to drink a lot a water and she has been drinking water nonstop since being home. This is likely the cause of her hyponatremia and improved with fluid restriction. I also spoke with her daughter about this and she wanted her to start on SSRI but at this time with her sodium being low, I do not recommend that. For anxiety will start BuSpar. (2) PAF (paroxysmal atrial fibrillation): Code(s): I48.0 - Paroxysmal atrial fibrillation Status: Acute Assessment and Plan: ----- currently in normal sinus rhythm. Continue Eliquis (3) Hypertension: Qualifiers: Hypertension type: unspecified Qualified Code(s): I10 - Essential (primary) hypertension Code(s): I10 - Essential (primary) hypertension Status: Chronic Assessment and Plan: ----- last blood pressure 151/54 But has been much higher on admission. Continue hydralazine and norvasc added 02/25. The patient has a history of bradycardia so I am reluctant to start Cardizem or metoprolol. . (4) Anxiety about health: Code(s): F41.8 - Other specified anxiety disorders Status: Acute Assessment and Plan: -----Avoid SSRIs since pt has hyponatremia. She has been more anxious since her last year. Continue buspar. (5) Lung nodule: Code(s): R91.1 - Solitary pulmonary nodule Status: Acute Assessment and Plan: -----CT reads she has a lung mass but it is small, 1.5 cm. Spoke to the pt and family about this and she needs a f/u and likely biopsy with pulmonology. Educated her that it could be old infection but cannot rule out cancer. She is a lifelong non smoker and has not been around chemicals with her job. She was, however, around 2nd hand smoke most of her life. DS: Summary Hospital Course Reason for hospitalization: Anxiousness, palpitations dizziness Hospital Course: Patient is 79-year-old female who presented emergency room for multiple vague complaints who was found to have hyponatremia sodium 125. She mentioned that she was having palpitation show she was admitted to the hospitalist service and observed. She had no telemetry abnormalities while here and no evidence of atrial fibrillation. Patient and daughter states that she gets very anxious about her health. She at times gets dizzy. She underwent a fluid restriction and her sodium improved to 132. CT of the chest showed incidental 1.5 cm left lower lobe mass which is suspicious for primary lung cancer. I talked to the patient and the daughter about this and suggest they need further workup. I have provided them with pulmonology is information in urged them to seek follow-up quickly. The patient had anxiety throughout Her stay and BuSpar was started. The day of discharge the patient had no complaints she was educated about the worrisome signs and symptoms to come back to the emergency room for and was discharged in stable condition. She had to follow-up with her primary care physician Status at Discharge Functional status at discharge: independent ambulation Overall status at discharge: patient is back to baseline Time Spent with Patient Time attestation: Total time spent providing and/or coordinating d
--- NOTE | 2020-02-26 14:48 | PC.NURSE ---
On 02/26/20, the student, [ Linda Gatica [facility] practical nursing teacher], provided care and completed Diasome documentation on this patient. I have reviewed the student's documentation and agree with the findings.
[2020-02-27 07:10] LABS: Osmolality, Urine 160 mOsm/kg (50-1200)
[2020-02-29 06:18] LABS: Osmolality, Urine 289 mOsm/kg (50-1200)
[2020-03-02 06:33] LABS: Albumin 3.7 g/dL (3.8-4.8); Alpha 1 Globulin 0.3 g/dL (0.2-0.3); Alpha 2 Globulin 0.6 g/dL (0.5-0.9); Beta 1 Globulin 0.4 g/dL (0.4-0.6); Gamma Globulin 1.1 g/dL (0.8-1.7); Protein, Total 6.4 g/dL (6.1-8.1)
[2020-03-03 05:36] LABS: Creatinine, Random Urine 51 mg/dL (20-275); Total Protein/Creatinine Ratio 118 mg/g creat (21-161)
--- NOTE | 2020-03-05 11:43 | PC.NURSE ---
No M spike for UPEP. Urine alpha and beta- zero. Protein ratio- 118.
== END 2020-02-26 12:00 | disposition home or self-care (01) | DRG 641 ==
LOC: ANHED 02-24 01:51 → ANH3MEDSUR 02-24 01:58
PROVIDERS: Internal Medicine Nephrology; Physician Assistant; Admitting Provider Family Medicine; Emergency Provider General Practice; Visit Provider Family Medicine
DX: E87.1 Hypo-osmolality and hyponatremia (principal); F41.8 Other specified anxiety disorders; I48.0 Paroxysmal atrial fibrillation; I10 Essential (primary) hypertension; R91.1 Solitary pulmonary nodule; Z79.01 Long term (current) use of anticoagulants; Z79.899 Other long term (current) drug therapy
CPT/HCPCS: 36415; 71045; 71260; 80048; 80053; 80069; 81001; 82533; 82570; 83735; 83930; 83935; 84155; 84156; 84165; 84166; 84295; 84300; 84439; 84443; 84480; 84484; 85025; 85027; 85610; 85730; 93005; 96374; 99285; A9270; G0378; J2060; Q9967

== ENCOUNTER 2020-05-21 03:53 | Emergency (ER) | payer MEDICARE, BC, SELFPAY ==
--- NOTE | ~2020-05-21 | CT_ITS ---
EXAMINATION: CT abdomen pelvis w con EXAM DATE: 05/21/2020 05:06 INDICATION: Diarrhea. TECHNIQUE: Spiral CT of the abdomen and pelvis was performed following intravenous injection of 100 m L Omnipaque 350. Axial, coronal and sagittal images were reviewed. The dose-length product (DLP) fo r this examination was 474.91 mGy-cm. The exposure was tailored according to patient size (auto mA e xposure control), and iterative reconstruction (ASIR) was used as additional no dose reduction techni que. Comparison is made to prior examination from 02/24/2020. FINDINGS: Nodule without spiculations in the left lower lobe infrahilar region measuring up to 1.8 cm , has increased in size compared to 02/24/2020 CT, most consistent with primary lung cancer. The liver, spleen, adrenal glands and pancreas are unremarkable. There is a poorly calcified gallsto ne in, gallbladder otherwise unremarkable. Portal and splenic veins are patent. Kidneys enhance sym metrically. There is no hydronephrosis. Mass with calcifications contiguous to the left side of th e uterine fundus and left adnexa, appearance most consistent with an exophytic fibroid. The bladder is unremarkable. There is no retroperitoneal or pelvic lymphadenopathy. There is mild scattered ar teriosclerotic disease. The appendix is normal. There is small sliding gastroesophageal hiatal hernia. There is mild sigmoid colonic diverticulosis. There is no adjacent inflammatory change to suggest diverticulitis. There i s expected amount of colonic stool. No free intraperitoneal gas. The heart is normal in size. Th ere are no pericardial or pleural effusions. There are no osteoblastic or osteolytic lesions identif ied. IMPRESSION: 1. Left lower lobe 1.8 cm nodule, increasing in size, highly suspicious for primary lung cancer. 2. Left pelvic partially calcified mass most likely an exophytic fibroid. Less likely ovarian origin . 3. Mild sigmoid diverticulosis. 4. Cholelithiasis. Reviewed, dictated and finalized at location A. [employer]ER IMPRESSION: 1. Left lower lobe 1.8 cm nodule, increasing in size, highly suspicious for pr imary lung cancer. 2. Left pelvic partially calcified mass most likely an exophytic fibroid. Less likely ovarian origin. 3. Mild sigmoid diverticulosis. 4. Cholelithiasis.
[2020-05-21 04:07] VITALS: BP 149/85; PULSE 85; RESP 12; TEMP 36.7; O2SAT 98
--- NOTE | 2020-05-21 04:11 | ED.NAVMDI ---
HPI - Nausea/Vomiting/Diarrhea General Chief complaint: Nausea/Vomiting/Diarrhea Stated complaint: diarrhea Time Seen by Provider: 05/21/20 03:58 Source: patient Mode of arrival: ambulatory Limitations: no limitations History of Present Illness HPI Narrative: A 79-year-old female comes into the emergency department tonight with complaints of diarrhea. Patient states that she has had this diarrhea for going on a month now. She relates that it is watery thin and frequent. She states that it is getting to the point where she is starting to feel very weak. This was her reason for presentation tonight. She does deny seeing any bloody stools. Patient does note taking Pepto-Bismol frequently and does note frequent black stools secondary to this. She denies any fevers or chills. Patient states that she is not having any pain right now but has had cramping associated with the bowel movements. Related Data Home Medications Medication Instructions Recorded Confirmed Silvino Jensen 1,000 mg PO DAILY 02/04/20 02/24/20 Coenzyme Q10 With D3/Mag/Zinc 1 cap/day PO DAILY 02/04/20 02/24/20 Keratan 250 mg PO DAILY 02/04/20 02/24/20 [place] Oil 1 cap PO DAILY 02/04/20 02/24/20 Tumeric Curcumin 500 mg PO DAILY 02/04/20 02/24/20 cholecalciferol (vitamin D3) 25 mcg PO DAILY 02/04/20 02/24/20 [Vitamin D3] cinnamon bark [Cinnamon] 2,000 mg PO DAILY 02/04/20 02/24/20 coconut oil 1,000 mg PO DAILY 02/04/20 02/24/20 cranberry extract-vitamin C 500 cap PO DAILY 02/04/20 02/24/20 garlic 100 mg PO DAILY 02/04/20 02/24/20 mayo root-pyridoxine HCl(B6) 550 cap PO DAILY 02/04/20 02/24/20 ginkgo biloba 150 mg PO DAILY 02/04/20 02/24/20 milk thistle 175 mg PO DAILY 02/04/20 02/24/20 [id number] acid-lutein [Adult 1 tablet PO DAILY 02/04/20 02/24/20 Multivitamin (w-lutein)] psyllium husk [Daily Fiber] 1,000 g PO DAILY 02/04/20 02/24/20 vitamin B complex [B-Complex] 1 tablet PO DAILY 02/04/20 02/24/20 Allergies Allergy/AdvReac Type Severity Reaction Status Date / Time No Known Allergies Allergy Verified 05/21/20 04:10 Review of Systems Review of Systems: Narrative: CONSTITUTIONAL: Denies fever, chills, or sweats. EYES: Denies visual changes, redness, or discharge. ENT: Denies rhinorrhea, congestion, sore throat, or otalgia. CARDIOVASCULAR: Denies chest pain, palpitations, or edema. RESPIRATORY: Denies cough or dyspnea. GASTROINTESTINAL: Denies abdominal pain, nausea, vomiting. Endorses diarrhea GENITOURINARY: Denies dysuria or hematuria. SKIN: Denies rash or itching. MUSCULOSKELETAL: Denies back pain, joint pain, or myalgia. NEUROLOGIC: Denies headache, numbness, dizziness, or weakness. PSYCHIATRIC: Denies anxiety or depression. [facility] Past Medical History Medical History Chronic hyponatremia HTN (hypertension) PAF (paroxysmal atrial fibrillation) Surgical History Surgical History No significant past surgical history Family History Family History Mother Heart disease Cerebrovascular accident Father Heart disease Cancer Sibling Heart disease Social History Social History Smoking status: Never smoker Alcohol intake: current Drinks per week: 6 Substance use: never Substance use type: does not use Gender identity (if verbalized by the patient): Female Spiritual care concerns: No Exam Narrative: Exam Narrative: GENERAL: Well-appearing, well-nourished, and in no acute distress. HEAD: Normocephalic, atraumatic. EYES: PERRLA and EOMI. ENT: Nares clear, no rhinorrhea or epistaxis. Mucous membranes moist. Oropharynx without tonsillar hypertrophy exudate or other lesions. Bilateral TMs pearly bellamy nonbulging NECK: Supple. No adenopathy or masses. No carotid bruits or JVD CHEST: Clear to auscu
[2020-05-21] MEDS: LACTATED RINGERS 1,000 ML 999 ML IV CONT (04:27)
[2020-05-21 04:35] LABS: Basophils Percent Auto 0.3 % (0.2-1.2); Eosinophils Absolute Auto 0.1 K/mm3 (0-0.3); Eosinophils Percent Auto 1.3 % (0-4.4); Hemoglobin 13.3 g/dL (12.0-15.0); Immature Granulocyte Absolute 0.01 K/mm3 (0.00-0.031); Immature Granulocyte Percent A 0.2 % (0-0.5); Lymphocytes Absolute Auto 1.94 K/mm3 (0.9-3.2); Lymphocytes Percent Auto 32.4 % (18.3-44.2); Mean Corpuscular Hemoglobin 30.6 pg (26-34); Mean Corpuscular Volume 87.6 fl (80-100); Mean Platelet Volume 8.7 fl (7.4-10.4); Monocytes Absolute Auto 0.6 K/mm3 (0.1-0.6); Monocytes Percent Auto 9.8 % (2.6-8.5); Neutrophils Absolute Auto 3.4 K/mm3 (1.3-6.7); Platelet Count Result 295 k/mm3 (150-375); Red Blood Count 4.34 M/mm3 (4.2-5.4); Red Cell Distribution Width 11.8 % (11.5-14.5)
[2020-05-21 04:47] LABS: Alanine Aminotransferase 19 U/L (4-35); Albumin Level 4.3 g/dL (3.5-5.1); Alkaline Phosphatase 59 U/L (38-126); Anion Gap 8 mmol/L (8-16); Aspartate Amino Transferase 25 U/L (14-36); Bilirubin,Total 0.6 mg/dL (0.2-1.3); Blood Urea Nitrogen 10 mg/dL (7-17); Calcium 9.2 mg/dL (8.4-10.2); Carbon Dioxide 26 mmol/L (22-30); Chloride 98 mmol/L (98-107); Estimated Glomerular Filt Rate > 60; Glucose 101 mg/dL (65-105); Lipase 38 U/L (23-300); Magnesium 1.7 mg/dL (1.6-2.3); Potassium 3.7 mmol/L (3.4-5.0); Sodium 132 mmol/L (137-145)
[2020-05-21 05:51] LABS: Add Urine Microscopic? NO; Appearance Urine Clear (Clear); Bilirubin Urine Negative (Negative); Blood Urine Negative (Negative); Color Urine Colorless (Yellow); Glucose Urine UA Negative (Negative); Ketones Urine Negative (Negative); Leukocyte Esterase Ur Negative LEU/UL (Negative); Nitrate Urine Negative (Negative); Protein Urine Negative (Negative); RBC Urine 0-2 /hpf (0-2); Specific Grav Ur 1.015 (1.001-1.035); Urobilinogen Urine Negative mg/dL (<2.0)
[2020-05-21 06:20] VITALS: BP 138/82; PULSE 71; RESP 19; O2SAT 98
== END 2020-05-21 06:20 | disposition home or self-care (01) ==
PROVIDERS: Emergency Provider Emergency Medicine; PCP Internal Medicine
DX: R19.7 Diarrhea, unspecified (principal); R91.8 Other nonspecific abnormal finding of lung field; E87.1 Hypo-osmolality and hyponatremia; I10 Essential (primary) hypertension; I48.0 Paroxysmal atrial fibrillation; K57.90 Diverticulosis of intestine, part unspecified, without perforation or abscess without bleeding; D25.9 Leiomyoma of uterus, unspecified; K80.20 Calculus of gallbladder without cholecystitis without obstruction
CPT/HCPCS: 36415; 74177; 80053; 80061; 81003; 83690; 83735; 85025; 96360; 99284; J7120; Q9967

== ENCOUNTER 2020-05-21 10:47 | Outpatient (CLI) | payer MEDICARE, BC, SELFPAY ==
[2020-05-21 12:12] LABS: Cholesterol 177 mg/dL (0-200); HDL Direct 75 mg/dL; Triglycerides 89 mg/dL (<150)
[2020-05-21 12:33] LABS: LDL Cholesterol Direct 71 mg/dL
== END 2020-05-21 10:48 | disposition home or self-care (01) ==
PROVIDERS: Visit Provider Internal Medicine Cardiovascular Disease
DX: I10 Essential (primary) hypertension (principal)
CPT/HCPCS: 36415; 80061

== ENCOUNTER 2020-06-27 03:00 | Emergency (ER) | payer MEDICARE, BC, SELFPAY ==
[2020-06-27 03:10] VITALS: BP 146/77; PULSE 82; RESP 24; TEMP 36.8; O2SAT 100
[2020-06-27] MEDS: ALPRAZolam (*CRX) 0.25 MG TABLET PO (03:53)
--- NOTE | 2020-06-27 04:15 | PC.NURSE ---
pt ambulated to bathroom and back with even and steady gait.
[2020-06-27 05:52] LABS: Basophils Percent Auto 0.3 % (0.2-1.2); Eosinophils Absolute Auto 0.1 K/mm3 (0-0.3); Eosinophils Percent Auto 1.4 % (0-4.4); Hematocrit 37.1 % (37.0-47.0); Hemoglobin 12.9 g/dL (12.0-15.0); Immature Granulocyte Absolute 0.02 K/mm3 (0.00-0.031); Immature Granulocyte Percent A 0.3 % (0-0.5); Lymphocytes Absolute Auto 1.62 K/mm3 (0.9-3.2); Lymphocytes Percent Auto 25.4 % (18.3-44.2); Mean Corpuscular HGB Conc 34.8 g/dl (32-36); Mean Corpuscular Hemoglobin 30.6 pg (26-34); Mean Corpuscular Volume 88.1 fl (80-100); Mean Platelet Volume 8.5 fl (7.4-10.4); Monocytes Absolute Auto 0.6 K/mm3 (0.1-0.6); Monocytes Percent Auto 9.6 % (2.6-8.5); Platelet Count Result 266 k/mm3 (150-375); Red Blood Count 4.21 M/mm3 (4.2-5.4); Red Cell Distribution Width 11.9 % (11.5-14.5); White Blood Count 6.4 K/mm3 (4.5-10.0)
[2020-06-27 06:04] LABS: Alanine Aminotransferase 16 U/L (4-35); Albumin Level 3.9 g/dL (3.5-5.1); Alkaline Phosphatase 50 U/L (38-126); Anion Gap 4 mmol/L (8-16); Aspartate Amino Transferase 24 U/L (14-36); Bilirubin,Total 0.4 mg/dL (0.2-1.3); Blood Urea Nitrogen 9 mg/dL (7-17); Calcium 8.7 mg/dL (8.4-10.2); Carbon Dioxide 28 mmol/L (22-30); Chloride 98 mmol/L (98-107); Estimated Glomerular Filt Rate > 60; Glucose 97 mg/dL (65-105); Potassium 4.2 mmol/L (3.4-5.0); Sodium 130 mmol/L (137-145)
--- NOTE | 2020-06-27 07:05 | ED.GENADULT ---
HPI - General Adult General Chief complaint: Anxiety Stated complaint: i think i had a stroke tonight Time Seen by Provider: 06/27/20 03:09 Source: RN notes reviewed History of Present Illness HPI narrative: Patient presents to emergency department from home for anxiety. Patient states that she has not slept well over the past 5 days she states that she has a pulmonary nodule is grown in size and is scheduled for a lung biopsy this coming week she states that she has been reading up on all the possibilities of what the nodule could be and this has been causing her to have increased anxiety and unable to sleep she states that this evening she got up and looked in the mirror she thought that she had seen some drooping of her face and she was concerned that she could have been having a stroke and came to the emergency department she states she has had no numbness or tingling of the extremities no weakness any of the extremities she denies any vision changes inability or difficulty speaking chest pain shortness of breath abdominal pain nausea vomiting or any other symptoms patient states she is on Eliquis for A. fib which she has been taking Related Data Home Medications Medication Instructions Recorded Confirmed Silvino Jensen 1,000 mg PO DAILY 02/04/20 05/21/20 Coenzyme Q10 With D3/Mag/Zinc 1 cap/day PO DAILY 02/04/20 05/21/20 Keratan 250 mg PO DAILY 02/04/20 05/21/20 [place] Oil 1 cap PO DAILY 02/04/20 05/21/20 Tumeric Curcumin 500 mg PO DAILY 02/04/20 05/21/20 cholecalciferol (vitamin D3) 25 mcg PO DAILY 02/04/20 05/21/20 [Vitamin D3] cinnamon bark [Cinnamon] 2,000 mg PO DAILY 02/04/20 05/21/20 coconut oil 1,000 mg PO DAILY 02/04/20 05/21/20 cranberry extract-vitamin C 500 cap PO DAILY 02/04/20 05/21/20 garlic 100 mg PO DAILY 02/04/20 05/21/20 mayo root-pyridoxine HCl(B6) 550 cap PO DAILY 02/04/20 05/21/20 ginkgo biloba 150 mg PO DAILY 02/04/20 05/21/20 milk thistle 175 mg PO DAILY 02/04/20 05/21/20 [id number] acid-lutein [Adult 1 tablet PO DAILY 02/04/20 05/21/20 Multivitamin (w-lutein)] psyllium husk [Daily Fiber] 1,000 g PO DAILY 02/04/20 05/21/20 vitamin B complex [B-Complex] 1 tablet PO DAILY 02/04/20 05/21/20 Allergies Allergy/AdvReac Type Severity Reaction Status Date / Time No Known Allergies Allergy Verified 05/21/20 10:24 Review of Systems Review of Systems: Narrative: Gen.: Denies fevers or chills Eyes: Denies eye pain or visual change ENT: Denies congestion Respiratory: Denies shortness of breath or cough CV: Denies chest pain or palpitations GI: Denies abdominal pain nausea, emesis or diarrhea Musculoskeletal: Denies back pain or muscle pain Neuro: Denies numbness, tingling, weakness or focal weakness Skin: Denies rash Psych: See HPI Except as documented, all other systems reviewed and negative PMFSH Past Medical History Medical History Chronic hyponatremia HTN (hypertension) PAF (paroxysmal atrial fibrillation) Surgical History Surgical History No significant past surgical history Family History Family History Mother Heart disease Cerebrovascular accident Father Heart disease Cancer Sibling Heart disease Social History Social History Smoking status: Never smoker Alcohol intake: current Drinks per week: 6 Substance use: never Substance use type: does not use Gender identity (if verbalized by the patient): Female Spiritual care concerns: No Exam Narrative: Exam Narrative: APPEARANCE: Anxious in appearance nontoxic, resting in bed HEENT: Normocephalic, atraumatic, OMM, TMs clear bilaterally EYES: PERRL, EOMI NECK: Supple, nontender, full range of motion without pain, no meningismus RESPIRATORY: No respiratory distress, clear to auscu
[2020-06-27 07:18] VITALS: BP 132/72; PULSE 76; RESP 18; O2SAT 100
== END 2020-06-27 07:19 | disposition home or self-care (01) ==
PROVIDERS: Emergency Provider Emergency Medicine; PCP Internal Medicine Cardiovascular Disease
DX: F41.9 Anxiety disorder, unspecified (principal); E87.1 Hypo-osmolality and hyponatremia; I10 Essential (primary) hypertension; I48.0 Paroxysmal atrial fibrillation; R91.1 Solitary pulmonary nodule
CPT/HCPCS: 36415; 80053; 85025; 99283; A9270

== ENCOUNTER → 2020-12-25 09:50 | Outpatient (CLI) | payer MEDICARE, BC, SELFPAY ==
--- NOTE | ~2020-12-25 | MM_ITS ---
EXAMINATION: MM screening pierre BI w tl HISTORY: Screening TECHNIQUE: Craniocaudal and mediolateral oblique 3-D tomosynthesis images were obtained and synthetic 2-D images were generated. CAD analysis was submitted and interpreted. COMPARISON: Comparison to multiple prior studies sequentially, with oldest reviewed study dated 06/15. BREAST PARENCHYMAL COMPOSITION: There are scattered areas of fibroglandular density. FINDINGS: The right breast is stable without evidence for malignancy. There is developing asymmetry i n the upper outer quadrant of the left breast, best seen on MLO view. Possible architectural distorti on on MLO view. IMPRESSION: 1. Developing left breast asymmetry with possible architectural distortion, upper outer quadrant post eriorly. 2. Recommend additional spot compression, exaggerated CC and mediolateral views. Possible additional ultrasound. BI-RADS Category 0: Incomplete: Needs additional imaging evaluation. Reviewed, dictated and finalized at location A. IMPRESSION: 1. Developing left breast asymmetry with possible architectural distortion, upp er outer quadrant posteriorly. 2. Recommend additional spot compression, exaggerated CC and mediolateral views . Possible additional ultrasound. BI-RADS Category 0: Incomplete: Needs additional imaging evaluation.
--- NOTE | ~2020-12-25 | DEXA_ITS ---
Bone Density Report Name: Audrey Cade Age: 80 Sex: Female Ethnicity: White Date of : 1940 Indication: postmenopausal; screening for osteoporosis; parental hip fracture; height loss; Referring Provider: SUBHASH MATTHEWS Study: Bone densitometry was performed. Exam Date: December 25, 2020 Accession number: [id number] Bone Density: Region BMD T-score Z-score Classification AP Spine (L1, L2) 0.968 -0.1 2.4 Normal Femoral Neck (Left) 0.733 -1.0 1.2 Normal Total Hip (Left) 0.876 -0.5 1.5 Normal Femoral Neck (Right) 0.712 -1.2 1.0 Osteopenia Total Hip (Right) 0.976 0.3 2.3 Normal Total Hip Mean 0.926 -0.1 1.9 Normal World Health Organization criteria for BMD impression classify patients as: Normal (T-score at or above -1.0), Osteopenia (T-score between -1.0 and -2.5), or Osteoporosis (T-score at or below -2.5). 10-year Fracture Risk(1): Major Osteoporotic Fracture 20% Hip Fracture 10% Reported Risk Factors: [place] (), Neck BMD=0.712, BMI=28.7, parental fracture (1) FRAX(R) Version 3.08. Fracture probability calculated for an untreated patient. Fracture probability may be lower if the patient has received treatment. Previous Exams: Region Exam Age BMD T-score BMD Change BMD Change Date g/cm2 vs Baseline vs Previous AP Spine(L1, L2) 12/25/2020 80 0.968 -0.1 0.037* -0.023* 08/28/2018 77 0.991 0.1 0.061* 0.056* 06/08/2014 73 0.935 -0.4 0.005 -0.048* 05/10/2011 70 0.984 0.0 0.053* 0.019 12/25/2007 67 0.965 -0.1 0.034* 0.034* 08/03/2004 63 0.931 -0.4 Total Hip(Left) 12/25/2020 80 0.876 -0.5 -0.061* -0.008 08/28/2018 77 0.884 -0.5 -0.053* -0.062* 06/08/2014 73 0.946 0.0 0.008 -0.002 05/10/2011 70 0.948 0.0 0.010 -0.031* 12/25/2007 67 0.979 0.3 0.041* 0.041* 08/03/2004 63 0.937 0.0 Total Hip(Right) 12/25/2020 80 0.976 0.3 0.039* -0.014 08/28/2018 77 0.989 0.4 0.053* -0.059* 06/08/2014 73 1.048 0.9 0.112* 0.060* 05/10/2011 70 0.989 0.4 0.052* -0.055* 12/25/2007 67 1.043 0.8 0.107* 0.107* 08/03/2004 63 0.937 0.0 *Denotes significance at 95% confidence level, LSC for AP Spine = 0.022 g/cm2, LSC for Total Hip = 0.027 g/cm2 Clinical Information Provided by Patient:
== END ==
PROVIDERS: Visit Provider Obstetrics & Gynecology Gynecology
DX: Z12.31 Encounter for screening mammogram for malignant neoplasm of breast (principal); Z78.0 Asymptomatic menopausal state; R92.8 Other abnormal and inconclusive findings on diagnostic imaging of breast; M85.851 Other specified disorders of bone density and structure, right thigh
CPT/HCPCS: 77063; 77067; 77080

== ENCOUNTER → 2021-01-26 09:54 | Outpatient (CLI) | payer MEDICARE, BC, SELFPAY ==
--- NOTE | ~2021-01-26 | MM_ITS ---
EXAMINATION: MM diagnostic pierre LT w tl HISTORY: Follow-up left breast asymmetry. History of left lung surgery in the spring to remove cancer . Scarring at the 2-3:00 position, 10 cm from the nipple. TECHNIQUE: Additional 3-D tomosynthesis images of the left breast were performed and synthetic 2-D im ages were generated. CAD analysis was submitted and interpreted. High resolution Limited left breast ultrasound was performed. COMPARISON: Comparison to multiple prior studies sequentially, with oldest reviewed study dated 06/15. BREAST PARENCHYMAL COMPOSITION: Breast composed of scattered areas of fibroglandular density. FINDINGS: MAMMOGRAPHIC FINDINGS: . Left breast asymmetry is less dense with spot compression views. There is a small left axillary lym ph node in the area of asymmetry, likely corresponding to recent lung surgery ULTRASOUND: Limited left breast ultrasound: There is heterogeneous soft tissue in the area of prior surgery witho ut discrete mass, likely attributable to postoperative scarring. IMPRESSION: 1. Probable benign postoperative scarring in the upper outer quadrant of the left breast correspondin g to the asymmetry. 2. Recommend 6 month follow-up diagnostic left mammogram. BI-RADS category 3, probably benign findings. Reviewed, dictated and finalized at location A. IMPRESSION: 1. Probable benign postoperative scarring in the upper outer quadrant of the le ft breast corresponding to the asymmetry. 2. Recommend 6 month follow-up diagnostic left mammogram. BI-RADS category 3, probably benign findings.
--- NOTE | ~2021-01-26 | US_ITS ---
Please refer to diagnostic mammogram report dated 01/26/2021 for details. Reviewed, dictated and finalized at location A.
== END ==
PROVIDERS: PCP Internal Medicine; Visit Provider Obstetrics & Gynecology Gynecology
DX: R92.8 Other abnormal and inconclusive findings on diagnostic imaging of breast (principal)
CPT/HCPCS: 76642; 77061; 77065; G0279

== ENCOUNTER 2022-01-26 10:59 | Outpatient (CLI) | payer MEDICARE, BC, SELFPAY ==
--- NOTE | ~2022-01-26 | MM_ITS ---
EXAMINATION: MM diagnostic pierre BI w tl HISTORY: Six-month follow-up of probable benign postoperative change of left breast TECHNIQUE: ML, MLO and CC 3-D tomosynthesis images of both breasts were performed and synthetic 2-D i mages were generated. Bilateral rotated lateral craniocaudal views. CAD analysis was submitted and in terpreted. COMPARISON: 01/26/2021 diagnostic left mammogram and limited left breast ultrasound 12/25/2020, 11/25/2019bilateral screening mammogram examinations BREAST PARENCHYMAL COMPOSITION: There are scattered areas of fibroglandular density. FINDINGS: No suspicious mass or architectural distortion, malignant calcification, skin thickening or retraction or significant new or developing density is detected. Resolution of previous asymmetric density in the posterior upper outer left breast. IMPRESSION: 1. No mammographic evidence of malignancy 2. Routine mammographic screening is recommended BI-RADS Category 1: Negative Reviewed, dictated and finalized at location C.
== END 2022-01-26 11:00 | disposition home or self-care (01) ==
PROVIDERS: PCP Internal Medicine; Visit Provider Obstetrics & Gynecology Gynecology
DX: R92.8 Other abnormal and inconclusive findings on diagnostic imaging of breast (principal)
CPT/HCPCS: 77062; 77066; G0279

== ENCOUNTER 2023-05-30 12:38 | Outpatient (CLI) | payer MEDICARE, BC, SELFPAY ==
--- NOTE | ~2023-05-30 | MM_ITS ---
EXAMINATION: MM screening pierre BI w tl HISTORY: Screening TECHNIQUE: Craniocaudal and mediolateral oblique 3-D tomosynthesis images were obtained and synthetic 2-D images were generated. CAD analysis was submitted and interpreted. COMPARISON: Comparison to multiple prior studies sequentially, with oldest reviewed study dated 12/2017. BREAST PARENCHYMAL COMPOSITION: Not dense: There are scattered areas of fibroglandular density. FINDINGS: There is no evidence of suspicious mass, calcification, or architectural distortion to sugg est malignancy in either breast. There has been no suspicious interval change. IMPRESSION: 1. No mammographic evidence of malignancy. 2. Recommend routine screening mammography in one year. BI-RADS Category 1: Negative Reviewed, dictated and finalized at location A. 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
== END 2023-05-30 12:39 ==
PROVIDERS: PCP Obstetrics & Gynecology Gynecology; Visit Provider Obstetrics & Gynecology Gynecology
DX: Z12.31 Encounter for screening mammogram for malignant neoplasm of breast (principal)
CPT/HCPCS: 77063; 77067

== ENCOUNTER 2024-05-29 07:44 | Outpatient (CLI) | payer MEDICARE, BC, SELFPAY ==
--- NOTE | ~2024-05-29 | DEXA_ITS ---
Bone Density Report Name: PATIENCE BARRIOS Age: 83 Sex: Female Ethnicity: White Date of : 1940 Indication: postmenopausal; screening for osteoporosis; parental hip fracture; height loss; Referring Provider: AMARIS, ROXI Santoro Study: Bone densitometry was performed. Exam Date: May 29, 2024 Accession number: [id number] Bone Density: Region BMD T-score Z-score Classification AP Spine(L1, L2, L3) 1.075 0.5 3.2 Normal Femoral Neck (Left) 0.685 -1.5 0.9 Osteopenia Total Hip (Left) 0.844 -0.8 1.4 Normal Femoral Neck (Right) 0.679 -1.5 0.9 Osteopenia Total Hip (Right) 0.879 -0.5 1.7 Normal Total Hip Mean 0.861 -0.7 1.6 Normal World Health Organization criteria for BMD impression classify patients as: Normal (T-score at or above -1.0), Osteopenia (T-score between -1.0 and -2.5), or Osteoporosis (T-score at or below -2.5). 10-year Fracture Risk(1): Major Osteoporotic Fracture 24% Hip Fracture 15% Reported Risk Factors: [place] (), Neck BMD=0.679, BMI=26.6, parental fracture (1) FRAX(R) Version 3.08. Fracture probability calculated for an untreated patient. Fracture probability may be lower if the patient has received treatment. Previous Exams: Region Exam Age BMD T-score BMD Change BMD Change Date g/cm2 vs Baseline vs Previous AP Spine (L1-L3) 05/29/2024 83 1.075 0.5 -0.038 (-3.4%) -0.038 (-3.4%) 05/29/2024 83 1.113 0.9 *Denotes significance at 95% confidence level, LSC for AP Spine = 0.022 g/cm2 Clinical Information Provided by Patient: Parent has had a hip fracture Has used the following medications: Vitamin D, Calcium Patient maximum height was 63 Menopause Age: 53 Drinks caffeinated beverages Onset of menses at age 15 Number of children 2 Impression: The patient has low bone mass, based on the Left Femoral Neck T-score. The patient has an estimated ten-year risk of hip fracture of 15% and an estimated ten-year risk of major fracture of 24%, based on the WHO FRAX algorithm. The patient has risk factors, including: parental hip fracture. The BMD for the AP Spine (L1-L3) decreased, changing by -3.4% since the last DXA exam. Discussion: BONE DENSITY IS LOW AT ONE OR MORE SKELETAL SITES. THE PATIENT'S BMD AND CLINICAL RISK FACTORS CONTRIBUTE TO THIS PATIENT'S HIGH RISK OF FRACTURE. This patient's lowest T-score is low at one or more skeletal sites. It meets the World Health Organization's (WHO) criteria for ?low bone mass? (T-score between -1.0 and -2.5). The patient's 10-year risk of hip fracture and 10 year risk of a major osteoporotic fracture as calculated by FRAX exceeds the threshold where pharmacological therapy is recommended by the National Osteoporosis Foundation (NOF). However, all treatment decisions require clinical judgment and consideration of individual patient factors, including patient preferences, comorbidities, previous drug use, risk factors not captured in the FRAX model (e.g., frailty, falls, vitamin D deficiency, increased bone turnover, interval significant decline in bone density) and possible under or overestimation of fracture risk by FRAX. The patient should follow a healthful lifestyle (good nutrition with adequate calcium and vitamin D, and appropriate weight-bearing exercise). Follow-Up: Consider a repeat BMD and Vertebral Fracture Assessment (VFA) exam in 2 years or sooner if medically necessary, to reassess this patient's status. Reported by: BRANDON on 05/29/2024 8:51:00 AM. Reviewed, dictated and finalized at location A. [facility]
--- OUTSIDE RECORDS SUMMARY | 2024-05-29 07:50 | XMS_ITS ---
Author Organization [facility] Address [address] [place] [address] [address] [address] Care Team Providers Care Flight Line Mechanic Name Role Phone Aurora ZAYAS, Melissa Primary Care Provider Yuki Cortez MD, [facility] Allergies Allergen (clinical drug ingredient) Drug/Non Drug Allergy documented on EMR Reaction Allergy Type Onset Date Status Aspirin 81 eye discomfort Drug Allergy Active alprazolam Alprazolam psychiatric Drug Allergy Active amlodipine Amlodipine dizziness Drug Allergy Active carvedilol Carvedilol Unknown Drug Allergy Active Substance with estrogen receptor agonist mechanism of action (substance) Estrogens Unknown Drug Allergy Active hydrochlorothiazide Hydrochlorothiazide Unknown D rug Allergy Active lisinopril Lisinopril cough Drug Allergy Active losartan Losartan palpitations Drug Allergy Active metoprolol Metoprolol Unknown Drug Allergy Active Medications Medication SIG (Take, Route, Frequency, Duration) Notes Start Date End Date Status Apixaban 5 MG 1 tablet Orally Twic e a day for 30 day(s) Active Multi Vitamin - 1 tablet Orally Once a day for 30 day(s) Active Furosemide 20 MG 1 tablet Orally Once a day for 30 day(s) Unknown Famotidine 20 MG 1 tablet at bedtime as needed Orally Once a day for 30 day(s) Active Acetaminophen 325 MG 1 tablet as needed Orally every 4 hrs Active amLODIPine Besylate 5 MG 1 tablet Orally Once a day for 30 day(s) 06/15/2022 Active Social History Tobacco Use: Social History Observation Description Date Details (start date - stop date) Never Smoker NA - NA Tobacco Use/Smoking Question Answer Notes Are you a nonsmoker Vital Signs Weight 141 lbs 12/13/2023 Height 62 in 12/13/2023 BMI 25.79 kg/m2 12/13/2023 Blood pressure systolic 136 mm Hg 12/13/19 24 Blood pressure diastolic 70 mm Hg 024 Heart Rate 68 /min 12/13/2023 Respiratory Rate 12 /min 12/13/2023 Encounters Encounter Location Date Provider Diagnosis [address] [place] [id number] 12/13/2023 Sharad Cortez Hypo-osmolality and hyponatremia E87.1 and Hypertensive chronic kidney disease with stage 1 through stage 4 chronic kidney disease, or unspecified chronic kidney disease I12.9 Assessments Encounter Date Diagnosis (ICD Code) Assessment Notes Treatment Notes Treatment Clinical Notes Section Notes 12/13/2023 Hypo-osmolality and hyponatremia (ICD-10 - E87.1) she was admitted with altered mental status in April 2022 to [facility] Serum sodium was 124 on presentation Urine studies in keeping with water intoxication/ beer potomania She improved with conservative management Serum sodium is now up to 138 Will discontinue salt tablets Continue oral Lasix Encouraged to continue fluid restriction Okay to return to work, she works as a lower school spanish teacher, she is alert and oriented in all respects showed the memories are intact 12/14/2022 Serum sodium is stable at 133 Encouraged to continue fluid restriction Recheck labs before next visit she can follow with her PCP in the interim Patient to return if hyponatremia noted before her next visit 12/13/2023 Serum sodium remains in normal range Patient has retired and does not drive scope was anymore Blood pressure is also controlled Recheck labs in a year's time 12/13/2023 Hypertensive chronic kidney disease with stage 1 through stage 4 chronic kidney disease, or unspecified chronic kidney disease (ICD-10 - I12.9) blood pressure is controlled, Current regimen is appropriate She reports dizziness with amlodipine which was discontinued Currently taking hydralazine without issues 12/13/2023 She is back on amlodipine blood pressure is controlled Continue to monitor regimen Plan Of Treatment Future Test Test Name Order Date RENAL FUNCTION PANEL 12/04/2024 Next Appt Details Follow Up: 1 Year, Reason: Provider Name:Sharad garcia, 12/10/2024 10:30:00 AM, [address] [place] [address], [address] [place] [address], [id number], Progress Notes * Audrey DEGROOT ADOB:1940 (83 yo F)Acc No.[id number]:12/13/2023 Progress Notes Patient:?Audrey DEGROOT Provider:?Sharad Cortez MD :1940???Age:83 Y???Sex:Female D ate:12/13/2023 Address:[address] [place], [place] [id number] Pcp:Melissa Simon MD Subjective: * Chief Complaints: * ??? * HPI: ???Symptom(s):? 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 ? 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 she returns today for follow-up visit ?She is here again with her daughter ?Patient reports that she has been more compliant with fluid restriction and has not been drinking beer since discharge ?Mental status is back to normal ?Most recent labs showed a serum sodium of 138 ? 12/14/2022 ?Patient returns for follow-up visit ?She drove herself, parked on [address] and walked across ?She reports that she likes walking. goes to the pack every day ? she denies shortness of breath or lower extremity edema ?No urinary symptoms ?Has been compliant with medications ?Start taking Lasix and Norvasc since last visit ?Most recent labs reviewed with her ? 12/13/2023 ?Patient returns for follow-up visit ?Compliant with medications ?No complaints. * ROS:?General/Constitutional:?Denies?Change in appetite.?Denies?Chills.?Denies?Fever.?Ophthalmologic:?Denies?Blurred vision.?Denies?Discharge.?Denies?Pain.?ENT:?Denies?Decreased hearing.?Denies?Sore throat.?Denies?Swollen glands.?Endocrine:?Denies?Cold intolerance.?Denies?Excessive thirst.?Denies?Heat intolerance.?Denies?Weight loss.?Respiratory:?Denies?Cough.?Denies?Shortness of breath at rest.?Denies?Shortness of breath with exertion.?Denies?Wheezing.?Cardiovascular:?Denies?Chest pain at rest.?Denies?Chest pain with exertion.?Denies?Irregular heartbeat.?Denies?Shortness of breath.?Gastrointestinal:?Denies?Abdominal pain.?Denies?Diarrhea.?Denies?Nausea.?Denies?Vomiting.?Genitourinary:?Denies?Blood in urine.?Denies?Difficulty urinating.?Denies?Frequent urination.?Musculoskeletal:?Swelling of extremities?denies.?Denies?Painful joints.?Denies?Weakness.?Skin:?Denies?Dry skin.?Denies?Itching.?Denies?Rash.?Neurologic:?Denies?Dizziness.?Denies?Fainting.?Denies?Headache.? * Medical History:? * Surgical History:?Endoscopy Bronchoscopy eft lung lobectomy 2020 * Hospitalization/Major Diagno stic Procedure:?No Hospitalization History. * Family History:? None. * Social History:?Tobacco Use:?Tobacco Use/Smoking?Are you a?nonsmoker.? * Medications:?TakingAcetamino phen 325 MG Tablet 1 tablet as needed Orally every 4 hrs Apixaban 5 MG Tablet 1 tablet Orally Twice a day Famotidine 20 MG Tablet 1 tablet at bedtime as needed Orally Once a day Multi Vitamin - Tablet 1 tablet Orally Once a day amLODIPine Besylate 5 MG Tablet 1 tablet Orally Once a day Taking Acetaminophen 325 MG Tablet 1 tablet as needed Orally every 4 hrs Taking Apixaban 5 MG Tablet 1 tablet Orally Twice a day Taking Famotidine 20 MG Tablet 1 tablet at bedtime as needed Orally Once a day Taking Multi Vitamin - Tablet 1 tablet Orally Once a day Taking amLODIPine Besylate 5 MG Tablet 1 tablet Orally Once a day DiscontinuedhydrALAZINE HCl 50 MG Tablet 1 tablet with food Orally Three times a day Discontinued hydrALAZINE HCl 50 MG Tablet 1 tablet with food Orally Three times a day UnknownFurosemide 20 MG Tablet 1 tablet Orally Once a day Medication List reviewed and reconciled with the patientUnknown Furosemide 20 MG Tablet 1 tablet Orally Once a day Medication List reviewed and reconciled with the patient * Allergies:?Alprazolam: psych iatricAspirin 81: eye discomfortLisinopril: coughMetoprololAmlodipine: dizzinessCarvedilolEstrogensHydrochlorothiazideLosartan: palpitationsno[Allergies Verified] Objective: * Vitals:?Wt: 141 lbs, Ht: 62 in, BMI:25.79Index, BP:136/70mm Hg, HR: 68 /min, RR: 12 /min, Wt-k.96 kg. * ???Past Orders: ???Lab:RENAL FUNCTION PANEL (Order Date - 11/29/2023) (Collection Date & Time - 12/11/2023 12:13 PM) ? Value Reference Range ?GLUCOSE 102 H 65-99 - mg/d L ?UREA NITROGEN (BUN) 14 7-25 - mg/dL ?CREATININE 0.64 0.60-0.95 - mg/dL ?BUN/CREATININE RATIO SEE NOTE: 6-22 - (calc) ?SODIUM 135 135-146 - mmo l/L ?POTASSIUM 3.8 3.5-5.3 - mmol/L ?CHLORIDE 98 98-110 - mm ol/L ?CARBON DIOXIDE 31 20-32 - mmol/L ?CALCIUM 8.8 8.6-10.4 - m g/dL ?PHOSPHATE ( PHOSPHORUS) 3.9 2.1-4.3 - mg/dL ?ALBUMIN 3.9 3.6-5.1 - g/ dL ?EGFR 88 > OR = 60 - mL/min/1.73m2 ???Lab:CBC (H/H, RBC, INDICE S, WBC, PLT) (Order Date - 12/11/2023) (Collection Date & Time - 12/11/2023 12:16 PM) ? Value Reference Range ?MPV 10.0 7.5-12.5 - fL ?WHITE BLOOD CELL COUNT 7.2 3.8-10.8 - Thousand/uL ?RED BLOOD CELL COUNT 3.97 3.80-5.10 - Million/uL ?HEMOGLOBIN 12.2 11.7-15.5 - g/dL ?HEMATOCRIT 37.0 35.0-45.0 - % ?MCV 93.2 80.0-100.0 - fL ?MCH 30.7 27.0-33.0 - pg ?PLATELET COUNT 251 140-4 00 - Thousand/uL ?MCHC 33.0 32.0-36.0 - g/d L ?RDW 12.1 11.0-15.0 - % * Examination: ???Physical Examination: ?GENERAL APPEARANCE:?in no acute distress, well developed, well nourished.?HEAD:?normocephalic, atraumatic.?EYES:?pupils equal, round, reactive to light and accommodation.?EARS:?normal.?ORAL CAVITY:?mucosa moist.?NECK/THYROID:?neck supple, full range of motion, no cervical lymphadenopathy.?SKIN:?no suspicious lesions, warm and dry.?HEART:?no murmurs, regular rate and rhythm, S1, S2 normal.?LUNGS:?clear to auscultation bilaterally.?ABDOMEN:?normal, bowel sounds present, soft, nontender, nondistended.?BACK:?no costovertebral angle tenderness.?EXTREMITIES:?no clubbing, cyanosis, or edema.?NEUROLOGIC:?.?PSYCH:?alert, oriented, not distressed..? Assessment: * Assessment: 1.?Hypo-osmolality and hypon atremia - E87.1 (Primary), [facility] on presentationUrine studies in keeping with water intoxication/ beer potomaniaShe improved with conservative managementSerum sodium is now up to 138Will discontinue salt tabletsContinue oral LasixEncouraged to continue fluid restrictionOkay to return to work, she works as a lower school spanish teacher,she is alert and oriented in all respects showed the memories are anywjv4812/14/2022Serum sodium is stable at 133Encouraged to continue fluid restrictionRecheck labs before next visitshe can follow with her PCP in the interimPatient to return if hyponatremia noted before her next visit12/13/2023Serum sodium remains in normal rangePatient has retired and does not drive scope was anymoreBlood pressure is also controlledRecheck labs in a year's time?2.?Hypertensive chronic kidney disease with stage 1 through stage 4 chronic kidney disease, or unspecified chronic kidney disease - I12.9, blood pressure is controlled, Current regimen is appropriateShe reports dizziness with amlodipine which was discontinuedCurrently taking hydralazine without kydqys7812/13/2023She is back on amlodipine blood pressure is controlledContinue to monitor regimen? Plan: * Treatment: * Procedure Codes:? * Follow Up:?1 Year * Images: * Sign off status: Completed true * Provider:?Sharad Cortez MD Date:? 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 I saw her in the hospital when she was admitted in April 2022 with altered mental status and a serum sodium of 124 Findings were in keeping with water intoxication/ psychogenic polydipsia She improved with fluid restriction, salt tablets she returns today for follow-up visit She is here again with her daughter Patient reports that she has been more compliant with fluid restriction and has not been drinking beer since discharge Mental status is back to normal Most recent labs showed a serum sodium of 138 12/14/2022 Patient returns for follow-up visit She drove herself, parked on [address] and walked across She reports that she likes walking. goes to the pack every day she denies shortness of breath or lower extremity edema No urinary symptoms Has been compliant with medications Start taking Lasix and Norvasc since last visit Most recent labs reviewed with her 12/13/2023 Patient returns for follow-up visit Compliant with medications No complaints Examination Category Sub-Category Detail Notes Category Not es Physical Examination GENERAL APPEARANCE: in no a cute distress, well developed, well nourished HEAD: normocephalic, atrau matic EYES: pupils equal, round, reactive to light and accommodation EARS: normal NECK/THYROID: neck supple, full ra nge of motion, no cervical lymphadenopathy HEART: no murmurs, regular rate and rhythm, S1, S2 normal LUNGS: clear to auscultatio n bilaterally ABDOMEN: normal, bowel sounds present, soft, nontender, nondistended NEUROLOGIC: Notes: nonfocal, motor strength normal upper and lower extremities, sensory exam intact. SKIN: no suspicious lesion s, warm and dry EXTREMITIES: no clubbing, cyanosi s, or edema BACK: no costovertebral an gle tenderness PSYCH: alert, oriented, not distressed. ORAL CAVITY: mucosa moist
--- OUTSIDE RECORDS SUMMARY | 2024-05-29 07:53 | XMS_ITS | Patient Health Record ---
Author Organization [facility] Address [address] [facility] [address] [place] [address] Care Team Providers Care Straightening Roll Operator Name Role Phone Aurora ZAYAS, Melissa Primary Care Provider Yuki Cortez MD, [facility] [phone] Allergies Allergen (clinical drug ingredient) Drug/Non Drug [...] Active metoprolol Metoprolol Unknown Drug Allergy Active Results Component Value Reference Range Notes Clinical PDF Report [id number] R-1 (Not yet reviewed by provider) Interpretation: Performing Lab: Notes/Report: CBC (H/H, RBC, INDICES, WBC, PLT) Reviewed date:12/13/2023 10:02:25 AM Interpretation: Performing Lab:[facility], [facility], [address] [place], [phone] Alejandro Kaba MD Notes/Report: WHITE BLOOD CELL COUNT 7.2 3.8-10.8 Thousand/ uL RED BLOOD CELL COUNT 3.97 3.80-5.10 Million/uL HEMOGLOBIN 12.2 11.7-15.5 g/dL HEMATOCRIT 37.0 35.0-45.0 % MCV 93.2 80.0-100.0 fL MCH 30.7 27.0-33.0 pg MCHC 33.0 32.0-36.0 g/dL RDW 12.1 11.0-15.0 % PLATELET COUNT 251 140-400 Thousand/uL MPV 10.0 7.5-12.5 fL Clinical PDF Report [id number] R-1 (Not yet reviewed by provider) Interpretation: Performing Lab: Notes/Report: RENAL FUNCTION PANEL Reviewed date:12/13/2023 10:02:39 AM Interpretation: Performing Lab:[place], [facility], [address], [place], [phone] Alejandro Kaba MD Notes/Report: GLUCOSE 102 65-99 mg/dL Fasting reference interval For someone without known diabetes, a glucose value between 100 and 125 mg/dL is consistent with prediabetes and should be confirmed with a follow-up test. UREA NITROGEN (BUN) 14 7-25 mg/dL CREATININE 0.64 0.60-0.95 mg/dL EGFR 88 > OR = 60 mL/min/1.73m2 BUN/CREATININE RATIO SEE NOTE: 6-22 (calc) Not Reported: BUN and Creatinine are within reference range. SODIUM 135 135-146 mmol/L POTASSIUM 3.8 3.5-5.3 mmol/L CHLORIDE 98 98-110 mmol/L CARBON DIOXIDE 31 20-32 mmol/L CALCIUM 8.8 8.6-10.4 mg/dL PHOSPHATE ( PHOSPHORUS) 3.9 2.1-4.3 mg/dL ALBUMIN 3.9 3.6-5.1 g/dL Reason For Referral No Information Medications Medication SIG (Take, Route, Frequency, Duration) Notes Start Date End Date Status Acetaminophen 325 MG 1 tablet as needed Orally every 4 hrs Active Apixaban 5 MG 1 tablet Orally Twic e a day for 30 day(s) Active Multi Vitamin - 1 tablet Orally Once a day for 30 day(s) Active Furosemide 20 MG 1 tablet Orally Once a day for 30 day(s) Unknown Famotidine 20 MG 1 tablet at bedtime as needed Orally Once a day for 30 day(s) Active amLODIPine Besylate 5 MG 1 tablet Orally Once a day for 30 day(s) 06/15/2022 Active Social History Tobacco Use: Social History Observation Description Date Details (start date - stop date) Never Smoker NA - NA Tobacco Use/Smoking Question Answer Notes Are you a nonsmoker Problems Problem Type SNOMED Code ICD Code Onset Dates Problem Status W/U Status Risk Notes Problem Chronic kidney disease due to hypertension ([id number] 0) Hypertensive chronic kidney disease with stage 1 through stage 4 chronic kidney disease, or unspecified chronic kidney disease (I12.9) Active confirmed blood pressure is controlled, Current regimen is appropriate She reports dizziness with amlodipine which was discontinued Currently taking hydralazine without issues 12/13/2023 She is back on amlodipine blood pressure is controlled Continue to monitor regimen Vital Signs Heart Rate 68 /min 12/13/2023 Respiratory Rate 12 /min 12/13/2023 Blood pressure diastolic 70 mm Hg 12/13/2023 Height 62 in 12/13/2023 Blood pressure systolic 136 mm Hg 12/13/2023 Weight 141 lbs 12/13/2023 BMI 25.79 kg/m2 12/13/2023 Encounters Encounter Location Date Provider Diagnosis [address] [place], [place] [phone] 12/13/2023 Sabianism Dana Hypo-osmolality and hyponatremia E87.1 and Hypertensive chronic kidney disease with stage 1 through stage 4 chronic kidney disease, or unspecified chronic kidney disease I12.[address] [place], [place] [id number] 12/11/2023 Sabianism Dana Hypertensive chronic kidney disease with stage 1 through stage 4 chronic kidney disease, or unspecified chronic kidney disease I12.9 Assessments Encounter Date Diagnosis (ICD Code) Assessment Notes Treatment Notes Treatment Clinical Notes Section Notes 12/11/2023 Hypertensive chronic kidney disease with stage 1 through stage 4 chronic kidney disease, or unspecified chronic kidney disease (ICD-10 - I12.9) 12/13/2023 Hypo-osmolality and hyponatremia (ICD-10 - E87.1) she was admitted with altered mental status in April 2022 to [facility] Serum sodium was 124 on presentation Urine studies in keeping with water intoxication/ beer potomania She improved with conservative management Serum sodium is now up to 138 Will discontinue salt tablets Continue oral Lasix Encouraged to continue fluid restriction Okay to return to work, she works as a secondary school principal, she is alert and oriented in all [...] Continue to monitor regimen Plan Of Treatment Pending Test Test Name Order Date BASIC METABOLIC PANEL 06/12/2022 Clinical PDF Report [id number] 12/11/19 Clinical PDF Report [id number] 11/29/19 RENAL FUNCTION PANEL 12/11/2023 Next Appt Details Provider Name:Sharad garcia, 12/10/2024 10:30:00 AM, [address] [place] [address], [place] [address], [place], [place], [id number], Insurance Providers Payer Name Payer Address Payer Phone Subscriber Number Group Number Insured Name Patient Relationship to Insured Coverage Start Date Coverage End Date MEDICARE PART B [address] [address] [place], [place] [id number] Audrey Degroot Self - patient is the insured [facility] [address] [place] [address] [id number] Audrey Degroot Self - patient is the insured Medical (General) History Medical History History ICD Code HTN Vitamin D deficiency Osteopenia Anxiety Carcinoid tumor left lung Surgical History Surgery Date(Month/Year) Endoscopy Bronchoscopy 2020 Left lung lobectomy 2020
--- OUTSIDE RECORDS SUMMARY | 2024-05-29 07:53 | XMS_ITS ---
Author Organization [facility] Address [address] [place] [address] Care Team Providers Care Research Development Manager Name Role Phone Aurora ZAYAS, [place] Primary Care Provider Yuki Cortez MD, [facility] Unavailable [phone] Results Component Value Reference Range Notes Clinical PDF Report [id number] R-1 (Not yet reviewed by provider) Interpretation: Performing Lab: Notes/Report: CBC (H/H, RBC, INDICES, WBC, PLT) Reviewed date:12/13/2023 10:02:25 AM Interpretation: Performing Lab:[place], [facility], [address] [place], [phone] Alejandro Kaba MD Notes/Report: WHITE BLOOD CELL COUNT 7.2 3.8-10.8 Thousand/ uL RED BLOOD CELL COUNT 3.97 3.80-5.10 Million/uL HEMOGLOBIN 12.2 11.7-15.5 g/dL HEMATOCRIT 37.0 35.0-45.0 % MCV 93.2 80.0-100.0 fL MCH 30.7 27.0-33.0 pg MCHC 33.0 32.0-36.0 g/dL RDW 12.1 11.0-15.0 % PLATELET COUNT 251 140-400 Thousand/uL MPV 10.0 7.5-12.5 fL REASON FOR VISIT reprint labs Encounters Encounter Location Date Provider Diagnosis [address], [place] [id number] 12/11/2023 Sharad Cortez Hypertensive chronic kidney disease with stage 1 through stage 4 chronic kidney disease, or unspecified chronic kidney disease I12.9 Assessments Encounter Date Diagnosis (ICD Code) Assessment Notes Treatment Notes Treatment Clinical Notes Section Notes 12/11/2023 Hypertensive chronic kidney disease with stage 1 through stage 4 chronic kidney disease, or unspecified chronic kidney disease (ICD-10 - I12.9) Plan Of Treatment Pending Test Test Name Order Date Clinical PDF Report [id number] 12/11/19 24 RENAL FUNCTION PANEL 12/11/2023 Next Appt Details Provider Name:Sharad garcia, 12/10/2024 10:30:00 AM, [address] [place] [address], [facility] [address], [place], [place], [id number], Progress Notes * Audrey DEGROOT ADOB:1940 (83 yo F)Acc No.[id number]:12/11/2023 Patient:?Audrey DEGROOT A :1940???Age:83 Y???Sex:Female Address:[address] [place] [id number] Subjective: * Chief Complaints: * ???Reprint labs * Medical History:? * Surgical History:? * Hospitalization/Major Diagno stic Procedure:? * Medications:? Objective: Assessment: * Assessment: 1.?Hypertensive chronic kidn ey disease with stage 1 through stage 4 chronic kidney disease, or unspecified chronic kidney disease - I12.9? Plan: * Treatment: * Procedure Codes:? * true * Date:? Generated for Manisha edmonds/Dorie/eTransmitting on:?05/29/2024 07:52 AM MEDICAL ESTHETICIAN
--- OUTSIDE RECORDS SUMMARY | 2024-05-29 07:53 | XMS_ITS | Clinical Summary ---
Author Organization [facility] [employer] Address [address] [place] [address] Care Team Providers Care Energy Risk Management Analyst Name Role Phone Alek Moon MD Unavailable [phone] Melissa Simon MD Primary Care Provider [phone] Source Comments [facility] [employer],non-owned Affiliates and Associated Physician Practices is amultiple site organization consisting of ambulatory clinics and hospital sitesin [place], [place], [place] and [place]. This disclosure is being madepursuant to the Care Everywhere program and may not contain all information available regarding this patient. Last updated 18.[facility] [employer] Allergies Active Allergy Reactions Criticality Noted Date Comments Alprazolam Psychiatric Medium 06/28/2020 Aspirin Eye Discomfort,Rash Medium 06/18/2019 Pt has dry mouth, dry eyes and rash on legs when she takes aspirin. Carvedilol Other,Unknown 03/01/2020 Estrogens Unknown 11/14/2023 Estrogens, Conjugated Other 09/30/2004 Hydrochlorothiazide Other,Unknown 06/18/2019 Pt gets hyponatremia with HCTZ Lisinopril Cough 03/26/2019 Losartan Palpitations 04/02/2020 Metoprolol Other 02/06/2020 bradycardia Medications * Be aware that medications may not be up to date on this document. Alwaysverify current medications with the patient. Medication Sig Dispensed Refills Start Date End Date Status Multiple Vitamins-Minerals (PRESERVISION AREDS) Take by mouth once daily Active hydrALAZINE (Apresoline) 50 MG tablet 25 mg in the morning, 25 mg at noon, and 50 mg at bedtime 180 tablet 02/01/2022 Active Additional Information Patient not taking.Reported on 11/14/2023 acetaminophen (Tylenol) 325 MG tablet Take 2 (two) tablets by mouth every 4 hours as needed Maximum allowable Acetaminophen amount = 4 Grams (4000 mg) / 24 hours. 05/31/2022 Active Additional Information Patient not taking.Reported on 11/08/2022 famotidine (Pepcid) 20 MG tablet Take 1 (one) tablet by mouth once daily 30 tablet 05/31/2022 Active furosemide (Lasix) 20 MG tablet Take 1 (one) tablet by mouth once daily 60 tablet 06/01/2022 Active Additional Information Patient not taking.Reported on 09/22/2022 salt buffered (Thermotabs) tablet Take 2 (two) tablets by mouth 3 times daily 180 tablet 05/31/2022 Active Additional Information Patient not taking.Reported on 11/14/2023 apixaban (Eliquis) 5 MG tablet Take 1 (one) tablet by mouth 2 times daily 180 tablet 3 11/14/2023 Active Active Problems Problem Noted Date Diagnosed Date Altered mental status, unspe cified altered mental status type 05/30/2022 Delirium due to another medical condition 2022 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 History of colonic polyps 10/08/2020 Osteopenia 10/08/2020 Prediabetes 10/08/2020 Screening for viral disease 10/08/2020 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 Change in bowel habits 06/09/2020 Overview (10/08/2020): Added automatically from request for surgery [id number] Pulmonary nodule 05/17/2020 Paroxysmal atrial fibrillation 04/13/2020 Suspected sleep apnea 04/13/2020 Overweight (BMI 25.0-29.9) 04/13/2020 Anxiety 03/01/2020 Supraventricular tachycardia 05/09/2019 Peripheral edema 03/26/2019 Essential hypertension 03/26/2019 Dizziness 03/26/2019 Gastroesophageal reflux disease without esophagi tis 02/28/2019 Chronic cerebral ischemia 02/11/2019 Atherosclerosis of aorta 02/11/2019 Impaired glucose tolerance 07/19/2012 Vitamin D deficiency 07/19/2012 Osteoarthrosis 10/25/2009 Pure hypercholesterolemia 10/15/2002 Resolved Problems Problem Noted Date Diagnosed Date Resolved Date Preoperative cardiovascular examination 08/18/2020 07/27/2021 Diarrhea 05/28/2020 11/05/2020 Snoring 04/13/2020 04/26/2020 Cough 03/26/2019 04/23/2019 Immunizations Name Administration Dates Next Due Gardenia Candelario primary monovalent 12+ yr 0.5mL ,06/12/2020 Social History Tobacco Use Types Packs/Day Years Used Date Smoking Tobacco: Never Smokeless Tobacco: Never Tobacco Cessation:Counseling Given: Not Answered Alcohol Use Standard Drinks/Week Comments Yes 0 (1 standard drink = 0.6 oz pur e alcohol) 6 pack of beer a week AUDIT-C Answer Date Recorded Q1: How often do you have a drink containing alc ohol? 2-3 times a week 05/29/2022 Q2: How many drinks containi ng alcohol do you have on a typical day when you are drinking? 1 or 2 05/29/2022 Q3: How often do you have si x or more drinks on one occasion? Never 05/29/2022 PHQ-2 Answer Date Recorded Patient Health Questionnaire-2 Score 0 11/14/2023 Sex and Gender Information Value Date Recorded Sex Assigned at Not on file Gender Identity Not on file Sexual Orientation Not on file Last Filed Vital Signs Vital Sign Reading Time Taken Comments Blood Pressure 131/70 02/08/2024 9:47 AM CDT Pulse 75 02/08/2024 9:47 AM CDT Temperature 37.4 ??C (99.3 ??F) 11/14/2023 2:33 PM CD T Respiratory Rate 16 02/08/2024 9:47 AM CDT Oxygen Saturation 99% 02/08/2024 9:47 AM CDT Inhaled Oxygen Concentration - - Weight 63 kg (139 lb) 02/08/2024 9:47 AM CDT Height 154.9 cm (5' 1 ) 02/08/2024 9:47 AM CDT Body Mass Index 26.26 02/08/2024 9:47 AM CDT Plan of Treatment Upcoming Encounters Date Type Department Care Team (Late st Contact Info) Description 11/19/2024 2:00 PM CDT Office Visit [facility] [address] [place] [address] [address] [place] [phone] Alek Moon MD [address] [place] [address] [facility] [address] [place] [address] 02/06/2025 9:00 AM CDT Appointment [facility] Health Imaging Services - CT Scan [address], [address] [place] [address] 02/06/2025 10:00 AM CDT Office Visit [facility] [address] [facility] [address] [place] [address] Ashly Miller, SENIOR PHYSICAL THERAPIST-SHIPPING AND RECEIVING ASSISTANT [address] [place] [address] [employer] (Work) Health Maintenance Due Date Last Done Comments BONE DENSITY TESTING 1940 MEDICARE AWV ? 12 MONTHS 1940 DTAP/TDAP/TD VACCINES (1 - Tdap) 1960 PNEUMOCOCCAL VACCINE 50+ (1 of 1 - PCV) 10/08/1991 ZOSTER VACCINE (1 of 2) 10/08/1991 Respiratory Syncytial Virus (RSV) Vaccine Pt: or over 60 yrs (1 - 1-dose 75+ series) 2016 COVID-19 VACCINE ( season) 2023 03/09/2021, 07/10/2020, 06/12/2020 INFLUENZA VACCINE (#1) 2023 , 01/06/2020, 02/28/2019, Additional history exists DEPRESSION SCREENING 04/30/2024 11/14/2023 HEPATITIS B VACCINE Aged Out No longe r eligible based on patient's age to complete this topic HIB VACCINE Aged Out No longer eligi ble based on patient's age to complete this topic HPV VACCINE Aged Out No longer eligi ble based on patient's age to complete this topic MENINGOCOCCAL (Group B) VACCINE Aged Out No longer eligible based on patient's age to complete this topic MENINGOCOCCAL VACCINE Aged Out No gurvinder veena eligible based on patient's age to complete this topic Advance Directives * Full Code (Latest Code Status on File) Date Activated Date Inactivated Comments 05/30/2022 3:06 AM 05/31/2022 6:39 PM * Full Code Date Activated Date Inactivated Comments 09/28/2020 1:47 PM 10/02/2020 3:51 PM Care Teams Energy Risk Management Analyst Relationship Specialty Start Date End Date Melissa Simon MD [facility] [address] [place] [phone] PCP - General Internal Medicine 06/30/22 Alek Moon MD [facility] RONAN PRECIADO [facility] [address] [place] [address] Cardiovascular Disease 03/26/19
--- OUTSIDE RECORDS SUMMARY | 2024-05-29 07:53 | XMS_ITS | Referral Summary ---
Author Organization [facility] Address [address] [place] [address] Care Team Providers Care Biometry Teacher Name Role Phone Alek Moon MD Unavailable [phone] Melissa Simon MD Primary Care Provider [phone] Source Comments [facility] [employer],non-owned Affiliates and Associated Physician Practices is amultiple site organization consisting of ambulatory clinics and hospital sitesin [place], [place], [place] and [place]. This disclosure is being madepursuant to the Care Everywhere program and may not contain all information available regarding this patient. Last updated 18.[facility] [employer] Allergies Active Allergy Reactions Criticality Noted Date [...] (10/08/2020): Added automatically from request for surgery [id number] Pulmonary nodule 05/17/2020 Paroxysmal atrial fibrillation 04/13/2020 [...] Mass Index 26.26 02/08/2024 9:47 AM CDT Functional Status Functional Status Response Date of Assess ment Is person deaf or have serious hearing difficult y? No 09/28/2020 Is person blind or have serious difficulty seein g? No 09/28/2020 Does person have serious dif ficulty walking/climbing stairs? No 09/28/2020 Does person have difficulty dressing/bathing? No 09/28/2020 Does person have difficulty doing errands alone? No 09/28/2020 Cognitive Status Response Date of Assessm ent Does person have difficulty concentrating/remembering/making decisions? No 09/28/2020 Plan of Treatment Upcoming Encounters Date Type Department Care Team (Late st Contact Info) Description 11/19/2024 2:00 PM CDT Office Visit [facility] [address] [facility] [address] [place] [address] Alek Moon MD [address] [facility] [address] [place] [address] 02/06/2025 9:00 AM CDT Appointment [facility] Imaging Services - CT Scan [address] [facility], [address] [place] [address] 02/06/2025 10:00 AM CDT Office Visit [facility] [address] [facility] [address] [place] [address] Ashly Miller, TRENCH PIPE LAYER HELPER-CREDIT REVIEW ANALYST [address] [facility] [address] [place] [address] [employer] (Work) Advance Directives * Full Code (Latest Code Status on File) Date Activated Date Inactivated Comments 05/30/2022 3:06 AM 05/31/2022 6:39 PM * Full Code Date Activated Date Inactivated Comments 09/28/2020 1:47 PM 10/02/2020 3:51 PM Care Teams Biometry Teacher Relationship Specialty Start Date End Date Melissa Simon MD [facility] [address] [facility] [address] [place] [phone] PCP - General Internal Medicine 06/30/22 Alek Moon MD [facility] RONAN SKINNER [facility] [address] [place] [address] Cardiovascular Disease 03/26/19
--- OUTSIDE RECORDS SUMMARY | 2024-05-29 07:53 | XMS_ITS ---
Author Organization [facility] Address [address] [place] [address] [place] [phone] Care Team Providers Care Real Estate Agency Principal Name Role Phone Aurora ZAYAS, Melissa Primary Care Provider Yuki Cortez MD, [facility] [phone] Allergies Allergen (clinical drug ingredient) Drug/Non Drug [...] Active metoprolol Metoprolol Unknown Drug Allergy Active REASON FOR VISIT Followup Medications Medication SIG (Take, Route, Frequency, Duration) Notes Start Date End Date Status amLODIPine Besylate 5 MG 1 tablet Orally Once a day for 30 day(s) 06/15/2022 Not-Taking Furosemide 20 MG 1 tablet Orally Once a day for 30 day(s) Not-Taking hydrALAZINE HCl 50 MG 1 tablet with food Orally Three times a day for 30 day(s) Active Apixaban 5 MG 1 tablet Orally Twic e a day for 30 day(s) Active Multi Vitamin - 1 tablet Orally Once a day for 30 day(s) Active Acetaminophen 325 MG 1 tablet as needed Orally every 4 hrs Active Famotidine 20 MG 1 tablet at bedtime as needed Orally Once a day for 30 day(s) Active Social History Tobacco Use: Social History Observation Description Date Details (start date - stop date) Never Smoker NA - NA Tobacco Use/Smoking Question Answer Notes Are you a nonsmoker Vital Signs Weight 149 lbs 12/14/2022 Height 62 in 12/14/2022 BMI 27.25 kg/m2 12/14/2022 Blood pressure systolic 132 mm Hg 12/15/19 23 Blood pressure diastolic 66 mm Hg 023 Heart Rate 70 /min 12/14/2022 Respiratory Rate 12 /min 12/14/2022 Encounters Encounter Location Date Provider Diagnosis [address] [phone] 12/14/2022 [facility] Hypo-osmolality and hyponatremia E87.1 and Hypertensive chronic kidney disease with stage 1 through stage 4 chronic kidney disease, or unspecified chronic kidney disease I12.9 Assessments Encounter Date Diagnosis (ICD Code) Assessment Notes Treatment Notes Treatment Clinical Notes Section Notes 12/14/2022 Hypo-osmolality and hyponatremia (ICD-10 - E87.1) she was admitted with altered mental status in April 2022 to [facility] Serum sodium was 124 on presentation Urine studies in keeping with water intoxication/ beer potomania She improved with conservative management Serum sodium is now up to 138 Will discontinue salt tablets Continue oral Lasix Encouraged to continue fluid restriction Okay to return to work, 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, she is alert and oriented in all respects showed the memories are intact 12/14/2022 Serum sodium is stable at 133 Encouraged to continue fluid restriction Recheck labs before next visit she can follow with her PCP in the interim Patient to return if hyponatremia noted before her next visit 12/14/2022 Hypertensive chronic kidney disease with stage 1 through stage 4 chronic kidney disease, or unspecified chronic kidney disease (ICD-10 - I12.9) blood pressure is controlled, Current regimen is appropriate She reports dizziness with amlodipine which was discontinued Currently taking hydralazine without issues Plan Of Treatment Next Appt Details Follow Up: 1 Year, Reason: Provider Name:Sharad garcia, 12/10/2024 10:30:00 AM, [address] [place] [address], [address], [place], [place], [id number], Progress Notes * Audrey DEGROOT ADOB:1940 (82 yo F)Acc No.[id number]:12/14/2022 Progress Notes Patient:?Audrey Degroot Provider:?Sharad Cortez MD :1940???Age:82 Y???Sex:Female D ate:12/14/2022 Address:[address] [place] [address] Pcp:Melissa Simon MD Subjective: * Chief Complaints: * ???Followup * HPI: ???Symptom(s):? 06/15/2022 ?Patient is here [...] follow-up visit ?She drove herself, parked on [email or web address] and walked across ?She reports that she likes walking. goes to the pack every day ? she denies shortness of breath or lower extremity edema ?No urinary symptoms ?Has been compliant with medications ?Start taking Lasix and Norvasc since last visit ?Most recent labs reviewed with her. * ROS:?General/Constitutional:?Denies?Change in appetite.?Denies?Chills.?Denies?Fever.?Ophthalmologic:?Denies?Blurred vision.?Denies?Discharge.?Denies?Pain.?ENT:?Denies?Decreased hearing.?Denies?Sore throat.?Denies?Swollen [...] Social History:?Tobacco Use:?Tobacco Use/Smoking?Are you a?nonsmoker.? * Medications:?TakingMulti Vit [place] - Tablet 1 tablet Orally Once a dayApixaban 5 MG Tablet 1 tablet Orally Twice a dayhydrALAZINE HCl 50 MG Tablet 1 tablet with food Orally Three times a dayFamotidine 20 MG Tablet 1 tablet at bedtime as needed Orally Once a dayAcetaminophen 325 MG Tablet 1 tablet as needed Orally every 4 hrsTaking Multi Vitamin - Tablet 1 tablet Orally Once a dayTaking Apixaban 5 MG Tablet 1 tablet Orally Twice a dayTaking hydrALAZINE HCl 50 MG Tablet 1 tablet with food Orally Three times a dayTaking Famotidine 20 MG Tablet 1 tablet at bedtime as needed Orally Once a dayTaking Acetaminophen 325 MG Tablet 1 tablet as needed Orally every 4 hrsNot-Taking/PRNFurosemide 20 MG Tablet 1 tablet Orally Once a dayamLODIPine Besylate 5 MG Tablet 1 tablet Orally Once a dayMedication List reviewed and reconciled with the patientNot-Taking/PRN Furosemide 20 MG Tablet 1 tablet Orally Once a dayNot-Taking/PRN amLODIPine Besylate 5 MG Tablet 1 tablet Orally Once a dayMedication List reviewed and reconciled with the patient * Allergies:?Alprazolam: psych iatricAspirin 81: eye discomfortLisinopril: coughMetoprololAmlodipine: dizzinessCarvedilolEstrogensHydrochlorothiazideLosartan: palpitationsno[Allergies Verified] Objective: * Vitals:?Wt: 149 lbs, Ht: 62 in, BMI:27.25 Index, BP:132/66 mm Hg, HR: 70 /min, RR: 12 /min, Wt-k.59 kg. * ???Past Orders: ???Lab:RENAL FUNCTION PANEL (Order Date - 07/13/2022) (Collection Date - 12/12/2022) ? Value Reference Range ?GLUCOSE 92 65-99 - mg/d L ?UREA NITROGEN (BUN) 17 7-25 - mg/dL ?CREATININE 0.83 0.60-0.95 - mg/dL ?BUN/CREATININE RATIO SEE NOTE: 6-22 - (calc) ?SODIUM 133 L 135-146 - mmo l/L ?POTASSIUM 4.3 3.5-5.3 - mmol/L ?CHLORIDE 96 L 98-110 - mm ol/L ?CARBON DIOXIDE 26 20-32 - mmol/L ?CALCIUM 9.7 8.6-10.4 - m g/dL ?PHOSPHATE ( PHOSPHORUS) 4.0 2.1-4.3 - mg/dL ?ALBUMIN 4.1 3.6-5.1 - g/ dL ?EGFR 71 > OR = 60 - mL/min/1.73m2 * Examination: ???Physical Examination: ?GENERAL APPEARANCE:?in no [...] [facility] on presentationUrine studies in keeping with water intoxication/ beer potomaniaShe improved with conservative managementSerum sodium is now up to 138Will discontinue salt tabletsContinue oral LasixEncouraged to continue fluid restrictionOkay to return to work, 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 Plan: * Treatment: * Procedure Codes:? * Follow Up:?1 Year * Images: * Sign off status: Completed true * Provider:?Sharad Cortez MD Date:? 12/14/2022 Generated for Manisha edmonds/Dorie/Jose Ramon on:?05/29/2024 07:53 AM ATTORNEY LAW CLERK History and Physical Notes * HPI (History [...] follow-up visit She drove herself, parked on [email or web address] and walked across She reports that she likes walking. goes to the pack every day she denies shortness of breath or lower extremity edema No urinary symptoms Has been compliant with medications Start taking Lasix and Norvasc since last visit Most recent labs reviewed with her Examination Category Sub-Category Detail Notes Category Not [...]
--- OUTSIDE RECORDS SUMMARY | 2024-05-29 07:53 | XMS_ITS | Patient Health Summary ---
Author Organization [facility] Address [address] [facility] [place] [address] Care Team Providers Care Regulatory And Compliance Technician Name Role Phone Alek Moon MD Unavailable [phone] Melissa Simon MD Primary Care Provider [phone] Note from [facility],non-owned Affiliates and Associated Physician Practices is amultiple site organization consisting of ambulatory clinics and hospital sitesin [place], [place]. This disclosure is being madepursuant to the Care Everywhere program and may not contain all information available regarding this patient. Last updated 18.[facility] Allergies * Alprazolam(Psychiatric) -Medium Criticality * Aspirin(Eye Discomfort,Rash) -Medium Criticality * Carvedilol(Other,Unknown) * Estrogens(Unknown) * Estrogens, Conjugated(Other) * Hydrochlorothiazide(Other,Unknown) * Lisinopril(Cough) * Losartan(Palpitations) * Metoprolol(Other) * Amlodipine Base(Dizziness),Inactive Medications * Be aware that medications may not be up to date on this document. Alwaysverify current medications with the patient. * Multiple Vitamins-Minerals (PRESERVISION AREDS) Take by mouth once daily * hydrALAZINE (Apresoline) 50 MG tablet(Started 02/01/2022) 25 mg in the morning, 25 mg at noon, and 50 mg at bedtime * acetaminophen (Tylenol) 325 MG tablet(Started 05/31/2022) Take 2 (two) tablets by mouth every 4 hours as needed Maximum allowable Acetaminophen amount = 4 Grams (4000 mg) / 24 hours. 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 History of colonic polyps 10/08/2020 Osteopenia 10/08/2020 Prediabetes 10/08/2020 Screening for viral disease 10/08/2020 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 Change in bowel habits 06/09/2020 Pulmonary nodule 05/17/2020 Paroxysmal atrial fibrillation 04/13/2020 [...] Snoring 04/13/2020 04/26/2020 Cough 03/26/2019 04/23/2019 Immunizations * Covid Moderna primary monovalent 12+ yr 0.5mL(Given 07/10/2020, 06/12/2020) Social History Tobacco Use Types Packs/Day Years [...] Mass Index 26.26 02/08/2024 9:47 AM CDT Procedures * CT CHEST W CONTRAST(Performed 02/05/2024) 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) * CREATININE - POCT INTERFACED(Performed 02/05/2024) * CT CHEST W CONTRAST(Performed 01/26/2023) 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) * CREATININE - POCT INTERFACED(Performed 01/26/2023) * CT CHEST WO CONTRAST(Performed 06/30/2022) Performed for Pulmonary nodule * CARDIAC RHYTHM STRIP ORDER(Performed 06/02/2022) * CARDIAC EKG ORDER(Performed 05/31/2022) * BASIC METABOLIC PANEL (CALCIUM TOTAL)(Performed 05/31/2022) Performed for Hyponatremia * BASIC METABOLIC PANEL (CALCIUM TOTAL)(Performed 05/31/2022) Performed for Hyponatremia * URINE DRUG SCREEN IMMUNOASSAY(Performed 05/31/2022) * MAGNESIUM BLOOD(Performed 05/31/2022) Performed for Altered mental status, unspecified altered mental status type * CBC W AUTO DIFFERENTIAL(Performed 05/31/2022) Performed for Altered mental status, unspecified altered mental status type * COMPREHENSIVE METABOLIC PANEL(Performed 05/31/2022) Performed for Altered mental status, unspecified altered mental status type * VITAMIN B12(Performed 05/31/2022) Performed for Altered mental status, unspecified altered mental status type * BASIC METABOLIC PANEL (CALCIUM TOTAL)(Performed 05/30/2022) Performed for Hyponatremia * BASIC METABOLIC PANEL (CALCIUM TOTAL)(Performed 05/30/2022) Performed for Hyponatremia * OT EVAL AND TREAT(Performed 05/30/2022) * PT EVAL AND TREAT(Performed 05/30/2022) * TROPONIN I(Performed 05/30/2022) Performed for Altered mental status, unspecified altered mental status type * TSH REFLEX FREE T4(Performed 05/30/2022) Performed for Hyponatremia * PHOSPHORUS BLOOD(Performed 05/30/2022) Performed for Hyponatremia * MAGNESIUM BLOOD(Performed 05/30/2022) Performed for Hyponatremia * COMPREHENSIVE METABOLIC PANEL(Performed 05/30/2022) Performed for Hyponatremia * CBC W/O DIFFERENTIAL(Performed 05/30/2022) Performed for Hyponatremia * OSMOLALITY BLOOD(Performed 05/30/2022) * CREATININE URINE RANDOM(Performed 05/30/2022) * LYTES (NA K CL) URINE RANDOM PANEL(Performed 05/30/2022) * OSMOLALITY URINE(Performed 05/30/2022) * TROPONIN I(Performed 05/30/2022) * URINE MICROSCOPIC ONLY(Performed 05/30/2022) * URINALYSIS REFLEX TO MICROSCOPIC NO CULTURE(Performed 05/30/2022) * TROPONIN I(Performed 05/29/2022) * TROPONIN I(Performed 05/29/2022) * COMPREHENSIVE METABOLIC PANEL(Performed 05/29/2022) * CBC W AUTO DIFFERENTIAL(Performed 05/29/2022) * EKG 12-LEAD(Performed 05/29/2022) Performed for Altered mental status, unspecified altered mental status type * XR CHEST 2VW(Performed 05/29/2022) Performed for Altered mental status, unspecified altered mental status type * CT HEAD WO CONTRAST(Performed 05/29/2022) Performed for Altered mental status, unspecified altered mental status type * CT CHEST WO CONTRAST(Performed 10/10/2021) Performed for Pulmonary nodule, Carcinoid tumor of left lung (HCC) * CT HEAD WO CONTRAST(Performed 08/26/2021) Performed for Fall, initial encounter * CT CHEST WO CONTRAST(Performed 04/11/2021) 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) * URINALYSIS REFLEX TO MICROSCOPIC NO CULTURE(Performed 2020) * APHERESIS/TRANSFUSION ORDER(Performed 10/04/2020) * CARDIAC RHYTHM STRIP ORDER(Performed 10/04/2020) * CBC W/O DIFFERENTIAL(Performed 10/02/2020) * COMPREHENSIVE METABOLIC PANEL(Performed 10/02/2020) * BASIC METABOLIC PANEL (CALCIUM TOTAL)(Performed 10/02/2020) * PREPARE RBC LEUKOREDUCED UNIT(Performed 10/01/2020) * RENAL FUNCTION PANEL(Performed 10/01/2020) * OSMOLALITY URINE(Performed 09/30/2020) * SODIUM URINE RANDOM(Performed 09/30/2020) * OSMOLALITY BLOOD(Performed 09/30/2020) * BASIC METABOLIC PANEL (CALCIUM TOTAL)(Performed 09/30/2020) * XR CHEST 1VW PORTABLE(Performed 09/30/2020) 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) * BASIC METABOLIC PANEL (CALCIUM TOTAL)(Performed 09/30/2020) * BASIC METABOLIC PANEL (CALCIUM TOTAL)(Performed 09/29/2020) * BASIC METABOLIC PANEL (CALCIUM TOTAL)(Performed 09/29/2020) * BASIC METABOLIC PANEL (CALCIUM TOTAL)(Performed 09/29/2020) * CBC W/O DIFFERENTIAL(Performed 09/29/2020) * PT EVAL AND TREAT(Performed 09/29/2020) * BASIC METABOLIC PANEL (CALCIUM TOTAL)(Performed 09/29/2020) * CBC W AUTO DIFFERENTIAL(Performed 09/29/2020) * XR CHEST 1VW PORTABLE(Performed 09/29/2020) 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) * XR CHEST 1VW PORTABLE(Performed 09/28/2020) 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) * PERIPHERAL IV NOTE(Performed 09/28/2020) * PATHOLOGY TISSUE EXAM (STL)(Performed 09/28/2020) Performed for Diagnosis unknown * ENDOTRACHEAL TUBE NOTE(Performed 09/28/2020) * ARTERIAL LINE NOTE(Performed 09/28/2020) * OR DX BRONCHOSCOPE/WASH(Performed 09/28/2020) Performed for Diagnosis unknown * OR THORACOSCOPY W/LOBECTOMY(Performed 09/28/2020) Performed for Diagnosis unknown * BLOOD TYPE VERIFICATION(Performed 09/28/2020) * COMPREHENSIVE METABOLIC PANEL(Performed 09/28/2020) * TYPE + SCREEN PANEL(Performed 09/23/2020) Performed for Pre-op testing * URINALYSIS REFLEX MICROSCOPIC REFLEX CULTURE(Performed 09/23/2020) Performed for Pre-op testing * PTT(Performed 09/23/2020) Performed for Pre-op testing * PT-INR(Performed 09/23/2020) Performed for Pre-op testing * COMPREHENSIVE METABOLIC PANEL(Performed 09/23/2020) Performed for Pre-op testing * CBC W AUTO DIFFERENTIAL(Performed 09/23/2020) Performed for Pre-op testing * TROPONIN I(Performed 08/28/2020) * COMPREHENSIVE METABOLIC PANEL(Performed 08/28/2020) * CBC W AUTO DIFFERENTIAL(Performed 08/28/2020) * XR CHEST 1VW PORTABLE(Performed 08/28/2020) Performed for Left-sided chest pain * EKG 12-LEAD(Performed 08/28/2020) Performed for Left-sided chest pain * SIX MINUTE WALK(Performed 08/06/2020) Performed for Malignant neoplasm of lower lobe of left lung (HCC) * COMPLETE PFT W/WO BRONCHODILATOR(Performed 08/06/2020) Performed for Malignant neoplasm of lower lobe of left lung (HCC) * PET CT SKULL TO MID THIGH(Performed 08/06/2020) Performed for Malignant neoplasm of lower lobe of left lung (HCC) * BLOOD GASES ARTERIAL(Performed 08/06/2020) Performed for Malignant neoplasm of lower lobe of left lung (HCC) * XR CHEST 1VW(Performed 07/02/2020) Performed for Pulmonary nodule * XR CHEST 1VW PORTABLE(Performed 07/02/2020) Performed for Pulmonary nodule * CT LUNG BIOPSY(Performed 07/02/2020) Performed for Pulmonary nodule * PATHOLOGY TISSUE EXAM (STL)(Performed 07/02/2020) Performed for Pulmonary nodule * PTT(Performed 07/02/2020) Performed for Lung nodule * PT-INR(Performed 07/02/2020) Performed for Lung nodule * CBC W AUTO DIFFERENTIAL(Performed 07/02/2020) Performed for Lung nodule * LAB(Performed 06/27/2020) * OR CT ABDOMEN&PELVIS W/CONTRAST(Performed 05/21/2020) * POLYSOMNOGRAPHY 4 OR MORE PARAMETERS WITH CPAP(Performed 05/15/2020) Performed for Suspected sleep apnea, Snoring, Paroxysmal atrial fibrillation (HCC), Essential hypertension, Overweight (BMI 25.0-29.9), NEHEMIAH (obstructive sleep apnea) * CT CHEST W CONTRAST(Performed 05/10/2020) Performed for Pulmonary nodule * CREATININE BLOOD - POINT OF CARE (IP)(Performed 05/10/2020) Performed for Pulmonary nodule * EVENT MONITOR(Performed 03/18/2020) * EKG 12-LEAD(Performed 03/05/2020) Performed for Paroxysmal atrial fibrillation (HCC) * TROPONIN I(Performed 02/29/2020) * XR CHEST 2VW(Performed 02/29/2020) Performed for Elevated blood pressure reading, Chest pain, unspecified type * MAGNESIUM BLOOD(Performed 02/29/2020) * TROPONIN I(Performed 02/29/2020) * PT-INR(Performed 02/29/2020) * COMPREHENSIVE METABOLIC PANEL(Performed 02/29/2020) * CBC W AUTO DIFFERENTIAL(Performed 02/29/2020) * EKG 12-LEAD(Performed 02/29/2020) Performed for Essential hypertension, Dizziness * IMAGING/RADIOLOGY/XRAY RESULTS ORDER(Performed 02/23/2020) * EKG(Performed 02/23/2020) * EKG(Performed 02/23/2020) * CARDIAC EKG ORDER(Performed 02/21/2020) * LAB RESULTS ORDER(Performed 02/21/2020) * XR CHEST 1VW PORTABLE(Performed 02/21/2020) * LAB RESULTS ORDER(Performed 02/12/2020) * ECHOCARDIOGRAM 2D WITH DOPPLER(Performed 02/11/2020) * CARDIAC EKG ORDER(Performed 02/11/2020) * CARDIAC STRESS TEST ORDER(Performed 02/11/2020) * XR CHEST 1VW PORTABLE(Performed 02/11/2020) * CARDIAC EKG ORDER(Performed 02/09/2020) * LAB RESULTS ORDER(Performed 02/09/2020) * EKG(Performed 02/05/2020) * IMAGING/RADIOLOGY/XRAY RESULTS ORDER(Performed 02/04/2020) * LAB(Performed 02/04/2020) * CARDIAC EKG ORDER(Performed 01/21/2020) * LAB RESULTS ORDER(Performed 01/21/2020) * HOLTER MONITOR(Performed 05/08/2019) Performed for Palpitations * CARDIAC EKG ORDER(Performed 02/12/2019) * MAGNESIUM BLOOD(Performed 02/11/2019) * TROPONIN I(Performed 02/11/2019) * URINE MICROSCOPIC ONLY REFLEX TO CULTURE(Performed 02/11/2019) * URINALYSIS REFLEX MICROSCOPIC REFLEX CULTURE(Performed 02/11/2019) * CULTURE URINE(Performed 02/11/2019) * XR CHEST 2VW(Performed 02/11/2019) Performed for Palpitations * CT HEAD WO CONTRAST(Performed 02/11/2019) Performed for Palpitations * T4 FREE DIRECT REFLEXED(Performed 02/11/2019) * TSH REFLEX FREE T4(Performed 02/11/2019) * COMPREHENSIVE METABOLIC PANEL(Performed 02/11/2019) * CBC W AUTO DIFFERENTIAL(Performed 02/11/2019) * TROPONIN I(Performed 02/11/2019) * EKG 12-LEAD(Performed 02/11/2019) Performed for Palpitations * URINE MICROSCOPIC ONLY REFLEX TO CULTURE(Performed 12/06/2014) * URINALYSIS REFLEX MICROSCOPIC REFLEX CULTURE(Performed 12/06/2014) * CULTURE URINE(Performed 12/06/2014) * LIPASE BLOOD(Performed 12/06/2014) * COMPREHENSIVE METABOLIC PANEL(Performed 12/06/2014) * CBC W AUTO DIFFERENTIAL(Performed 12/06/2014) * XR LUMBAR SPINE 4VW OR MORE(Performed 04/12/2009) Performed for Lumbago, Lumbar Pain With Radiation Down Left Leg Results * CT Chest W Contrast (02/05/2024 10:59 AM CDT) Only the most recent of3 resultswithin the time period is included. 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 TECHNIQUE: Postcontrast CT chest is obtained following intravenous administration of 80 mL Isovue-370. FINDINGS: ?? The heart is enlarged and stable. Coronary artery calcification is present. Multiple small calcified mediastinal and hilar lymph nodes are present. The visualized vascular structures enhance normally. No adenopathy is seen. The esophagus appears grossly normal. Bilateral apical lung infiltrates consistent pleural parenchymal scarring are present unchanged. There are persistent bilateral linear and nodular opacities within the bilateral lungs, upper and lower lobes and right middle lobe without significant change. No new lung mass is present. There is no pleural effusion or pneumothorax. No bronchiectasis is present. The visualized structures of the upper abdomen demonstrate likely stone in the gallbladder lumen. There are calcified nodules within the retroperitoneal structures of the upper abdomen and around an aortocaval lymph node in the upper abdomen. DIAGNOSIS: Large and unchanged bilateral nodular and linear lung opacities without new lung mass. The visualized mediastinal and retroperitoneal nodules are present. These appear unchanged. 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 TECHNIQUE: Postcontrast CT chest is obtained following intravenous administrationof 80 mL Isovue-370. FINDINGS: The heart is enlarged and stable. Coronary artery calcification ispresent. Multiple small calcified mediastinal and hilar lymph nodes are present.The visualized vascular structures enhance normally. No adenopathy is seen.The esophagus appears grossly normal. Bilateral apical lung infiltrates consistent pleural parenchymalscarring are present unchanged. There are persistent bilateral linear and nodular opacities within the bilateral lungs, upper and lower lobes and right middle lobe without significant change. No new lung mass is present.There is no pleural effusion or pneumothorax. No bronchiectasis is present. The visualized structures of the upper abdomen demonstrate likely stonein the gallbladder lumen. There are calcified nodules within the retroperitoneal structures of the upper abdomen and around an aortocaval lymph node in the upper abdomen. DIAGNOSIS: Large and unchanged bilateral nodular and linear lung opacities withoutnew lung mass. The visualized mediastinal and retroperitoneal nodules are present.These appear unchanged. Edited by Angela Aguayo on 02/05/2024 11:46 AM > Interpreting Provider: Refugio Cadet MD on 02/05/2024 12:27 PM Cole Odonnell MD CT ORDERABLES * (ABNORMAL) CREATININE - POCT INTERFACED (02/05/2024 10:42 AM CDT) Only the most recent of2 resultswithin the time period is included. Creatinine POCT 0.69(L) 0.70 - 1.20 mg/dL 02/05/2024 10:53 AM CDT [facility] eGFR 87(L) >=90 mL/min/1.7 3 m2 02/05/2024 10:53 AM CDT [facility] Blood BLOOD SPECIMEN / Unknown 02/05/2024 10:42 AM CDT 02/05/2024 10:53 AM CDT Melissa Simon MD LAB - POINT OF CARE ORDERABLES Performing Organization Address City/State/[facility] Co de Phone Number [facility] [address] [place], [place] [id number] * CT CHEST WO CONTRAST (06/30/2022 8:34 AM ATHLETIC TRAINER) Only the most recent of3 resultswithin the time period is included. Anatomical Region Laterality Modality Chest Computed Tomogra phy 06/30/2022 8:49 AM ATHLETIC TRAINER Impressions 06/30/2022 9:01 AM ATHLETIC TRAINER IMPRESSION: Scattered nodular densities, particularly in the lung apices. Overall, when compared with the previous study, these nodules appear similar. The largest of these nodules measures up to approximately 5 mm. Follow-up in 2 years could be obtained to document stability. Edited by Pao Tboar on 06/30/2022 8:53 AM > Interpreting Provider: Zhang Raabgo MD on 06/30/2022 9:01 AM Narrative 06/30/2022 9:01 AM ATHLETIC TRAINER PROCEDURE: ??CT CHEST WO CONTRAST, DATE/TIME OF EXAM: ??06/30/2022 8:35 AM, LOCATION ??[facility] INDICATION: R91.1: Solitary pulmonary nodule ADDITIONAL CLINICAL INFORMATION: Ordering Provider Reason For Exam: Technologist Note: Additional: COMPARISON: None. TECHNIQUE: CT of the chest was performed without intravenous contrast utilizing standard protocol. CT dose reduction technique was used, including Automated Exposure Control. FINDINGS: The heart appears prominent and small volume pericardial effusion is seen. Coronary artery calcifications are seen. There are numerous nodular densities throughout the lungs. Many of these small nodules are seen in the lung apices, as noted on image 12 series 4. These appear similar to the previous study. No focal pneumonic consolidation or pleural effusion is seen. There may be some mild emphysematous changes in the lung apices. No pneumothorax is identified. No mediastinal or hilar adenopathy is seen. Bone windows demonstrate no definite destructive lesions. Limited evaluation of the intra-abdominal structures is unremarkable. Procedure Note Zhang Rabago MD - 06/30/2022 PROCEDURE: CT CHEST WO CONTRAST, DATE/TIME OF EXAM: 06/30/2022 8:35 AM, LOCATION [facility] INDICATION: R91.1: Solitary pulmonary nodule ADDITIONAL CLINICAL INFORMATION: Ordering Provider Reason For Exam: Technologist Note: Additional: COMPARISON: None. TECHNIQUE: CT of the chest was performed without intravenous contrast utilizing standard protocol. CT dose reduction technique was used, including Automated ExposureControl. FINDINGS: The heart appears prominent and small volume pericardial effusion isseen. Coronary artery calcifications are seen. There are numerous nodular densities throughout the lungs. Many of these small nodules are seen in the lung apices, as noted on image 12 series4. These appear similar to the previous study. No focal pneumonic consolidation or pleural effusion is seen. There may be some mild emphysematous changes in the lung apices. No pneumothorax is identified.No mediastinal or hilar adenopathy is seen. Bone windows demonstrate no definite destructive lesions. Limited evaluation of the intra-abdominal structures is unremarkable. IMPRESSION: Scattered nodular densities, particularly in the lung apices. Overall,when compared with the previous study, these nodules appear similar. Thelargest of these nodules measures up to approximately 5 mm. Follow-up in 2 years could be obtained to document stability. Edited by Pao Tobar on 06/30/2022 8:53 AM > Interpreting Provider: Zhang Rabago MD on 06/30/2022 9:01 AM Cole Odonnell MD CT ORDERABLES * CARDIAC RHYTHM STRIP ORDER (06/02/2022 9:04 PM ATHLETIC TRAINER) Only the most recent of2 resultswithin the time period is included. Narrative 06/02/2022 9:04 PM ATHLETIC TRAINER Ordered by an unspecified provider. Scanned Document CARDIAC SERVICES ORD ERABLES * CARDIAC EKG ORDER (05/31/2022 9:44 PM ATHLETIC TRAINER) Only the most recent of6 resultswithin the time period is included. Narrative 05/31/2022 9:44 PM ATHLETIC TRAINER Ordered by an unspecified provider. Scanned Document CARDIAC SERVICES ORD ERABLES * (ABNORMAL) BASIC METABOLIC PANEL (CALCIUM TOTAL) (05/31/2022 11:27 AM ATHLETIC TRAINER) Only the most recent of11 resultswithin the time period is included. Glucose 81 70 - 105 mg/dL 05/31/2022 12:28 PM [facility] Sodium 128(L) 136 - 145 mmol/L 05/31/2022 12:28 PM [facility] Potassium 3.9 3.5 - 5.1 mmol/L 05/31/2022 12:28 PM [facility] Chloride 94(L) 98 - 107 mmol/L 05/31/2022 12:28 PM [facility] CO2 25 23 - 31 mmol/L 05/31/2022 12:28 PM [facility] Calcium 8.8 8.4 - 10.4 mg/dL 05/31/2022 12:28 PM [facility] Anion Gap 9 8 - 18 mmol/L 05/31/2022 12:28 PM [facility] BUN 11 9.8 - 20.1 mg/dL 05/31/2022 12:28 PM [facility] Creatinine 0.75 0.57 - 1.11 mg/dL 05/31/2022 12:28 PM [facility] eGFR by CKD-EPI 80(L) >=90 mL/min/1.7 3 m2 05/31/2022 12:28 PM [facility] Blood BLOOD SPECIMEN / Unknown Lab Venipuncture / Unknown 05/31/2022 11:27 AM ATHLETIC TRAINER 05/31/2022 11:59 AM [facility] Tiffanie Conklin MD LAB - CHEMISTRY CATHY LARKIN [facility] Organization Address City/State/[facility] Co de Phone Number [facility] [address] [place] [address] * URINE DRUG SCREEN IMMUNOASSAY (05/31/2022 12:25 AM [facility]) [facility] Amphetamines Screen Urine Not detected Not detected 05/31/2022 1:24 AM [facility] Barbiturates Screen Urine Not detected Not detected 05/31/2022 1:24 AM [facility] Benzodiazepines Screen Urine Not detected Not detected 05/31/2022 1:24 AM [facility] Cannabinoids Screen Urine Not detected Not detected 05/31/2022 1:24 AM [facility] Cocaine Screen Urine Not detected Not detected 05/31/2022 1:24 AM [facility] Fentanyl Urine Not detected Not detected 05/31/2022 1:24 AM [facility] Methadone Screen Urine Not detected Not detected 05/31/2022 1:24 AM [facility] Opiate Screen Urine Not detected Not detected 05/31/2022 1:24 AM [facility] Phencyclidine Screen Urine Not detected Not detected 05/31/2022 1:24 AM [facility] Urine URINE / Unknown Collection / Unknown 05/31/2022 12:25 AM ATHLETIC TRAINER 05/31/2022 1:00 AM [facility] Narrative [facility] - 05/31/2022 1:24 AM [facility] This drug screen is designed for MEDICAL purposes only. It is not to be used for legal purposes, including but not limited to worker's comp, police investigations, occupational issues, child custody, etc. ??Any positive result is only presumptive and must be confirmed with a separate confirmatory test ordered by the physician. Drug Screening Test Cutoff Values: AMPHETAMINES ?1000 ng/mL BARBITURATES ? 200 ng/mL BENZODIAZEPINES ?200 ng/mL CANNABINOIDS(THC) ?? 50 ng/mL COCAINE ?300 ng/mL FENTANYL ? 1 ng/mL METHADONE ?300 ng/mL OPIATES ?300 ng/mL PHENCYCLIDINE(PCP) ??25 ng/mL Tiffanie Conklin MD LAB - URINE CHEMISTR Y ORDERABLES [facility] [address] [place] [address] * (ABNORMAL) CBC W AUTO DIFFERENTIAL (05/31/2022 12:04 AM [facility]) Only the most recent of9 resultswithin the time period is included. WBC 6.2 4.4 - 10.7 x10E9/L 05/31/2022 12:13 AM [facility] WBC Corrected 05/31/2022 12:13 AM [facility] RBC 3.88 3.80 - 5.20 x10E12/L 05/31/2022 12:13 AM [facility] Hemoglobin 11.9(L) 12.0 - 15.6 gm/dL 05/31/2022 12:13 AM [facility] Hematocrit 33.7(L) 35.9 - 45.5 % 05/31/2022 12:13 AM [facility] MCV 86.9 80.7 - 98.3 fl 05/31/2022 12:13 AM [facility] MCH 30.7 26.7 - 34.0 pg 05/31/2022 12:13 AM [facility] MCHC 35.3 30.8 - 35.9 gm/dL 05/31/2022 12:13 AM [facility] Platelet Count 306 153 - 416 x10E9/L 05/31/2022 12:13 AM [facility] RDW-CV 12.1 12.1 - 14.9 % 05/31/2022 12:13 AM [facility] MPV 8.4(L) 9.4 - 12.9 fl 05/31/2022 12:13 AM [facility] Neutrophils % 46.7 44.0 - 73.0 % 05/31/2022 12:13 AM [facility] Lymphocytes % 38.5 20.0 - 43.0 % 05/31/2022 12:13 AM [facility] Monocytes % 11.5 5.0 - 13.0 % 05/31/2022 12:13 AM [facility] Eosinophils % 2.6 0.0 - 6.0 % 05/31/2022 12:13 AM [facility] Basophils % 0.5 0.0 - 2.0 % 05/31/2022 12:13 AM [facility] Immature Granulocytes 0.2 0 - 1 % 05/31/2022 12:13 AM [facility] Neutrophil Absolute 2.89 2.01 - 7.14 x10E9/L 05/31/2022 12:13 AM [facility] Lymphocytes Absolute 2.38 1.07 - 3.94 x10E9/L 05/31/2022 12:13 AM [facility] Monocytes Absolute 0.71 0.26 - 1.07 x10E9/L 05/31/2022 12:13 AM [facility] Eosinophils Absolute 0.16 0 - 0.47 x10E9/L 05/31/2022 12:13 AM [facility] Basophils Absolute 0.03 0 - 0.08 x10E9/L 05/31/2022 12:13 AM [facility] Immature Granulocytes Absolute 0.01 0.00 - 0.06 x10E9/L 05/31/2022 12:13 AM [facility] nRBC Auto 0 /100 WBC 05/31/2022 12:13 AM [facility] Blood BLOOD SPECIMEN / Unknown Lab Venipuncture / Unknown 05/31/2022 12:04 AM ATHLETIC TRAINER 05/31/2022 12:09 AM [facility] Tiffanie Conklin MD LAB - HEMATOLOGY ORD ERABLES [facility] [address] [place] [address] * (ABNORMAL) COMPREHENSIVE METABOLIC PANEL (05/31/2022 12:04 AM [facility]) Only the most recent of10 resultswithin the time period is included. Glucose 96 70 - 105 mg/dL 05/31/2022 12:31 AM [facility] Sodium 127(L) 136 - 145 mmol/L 05/31/2022 12:31 AM [facility] Potassium 3.7 3.5 - 5.1 mmol/L 05/31/2022 12:31 AM [facility] Chloride 96(L) 98 - 107 mmol/L 05/31/2022 12:31 AM [facility] CO2 23 23 - 31 mmol/L 05/31/2022 12:31 AM [facility] Calcium 8.8 8.4 - 10.4 mg/dL 05/31/2022 12:31 AM [facility] Anion Gap 8 8 - 18 mmol/L 05/31/2022 12:31 AM [facility] BUN 8(L) 9.8 - 20.1 mg/dL 05/31/2022 12:31 AM [facility] Creatinine 0.71 0.57 - 1.11 mg/dL 05/31/2022 12:31 AM [facility] Alkaline Phosphatase 52 40 - 150 U/L 05/31/2022 12:31 AM [facility] ALT 13 0 - 61 U/L 05/31/2022 12:31 AM [facility] AST 16 5 - 34 U/L 05/31/2022 12:31 AM [facility] Protein Total 6.6 6.4 - 8.3 gm/dL 05/31/2022 12:31 AM [facility] Albumin 3.7 3.2 - 4.6 gm/dL 05/31/2022 12:31 AM [facility] Bilirubin Total 0.4 0.2 - 1.2 mg/dL 05/31/2022 12:31 AM [facility] eGFR by CKD-EPI 86(L) >=90 mL/min/1.7 3 m2 05/31/2022 12:31 AM [facility] Blood BLOOD SPECIMEN / Unknown Lab Venipuncture / Unknown 05/31/2022 12:04 AM [facility] 05/31/2022 12:09 AM ATHLETIC TRAINER Tiffanie Conklin MD LAB - CHEMISTRY CATHY LARKIN Performing Organization Address [facility]/ZIP Co de Phone Number [facility] [address] [place] [address] [phone] * MAGNESIUM BLOOD (05/31/2022 12:04 AM ATHLETIC TRAINER) Only the most recent of4 resultswithin the time period is included. Magnesium 1.8 1.6 - 2.6 mg/dL 05/31/2022 12:31 AM ATHLETIC TRAINER [facility] Blood BLOOD SPECIMEN / Unknown Lab Venipuncture / Unknown 05/31/2022 12:04 AM ATHLETIC TRAINER 05/31/2022 12:09 AM ATHLETIC TRAINER Tiffanie Conklin MD LAB - CHEMISTRY CATHY LARKIN Performing Organization Address [facility] Co de Phone Number [facility] [address] [place] [phone] * VITAMIN B12 (05/31/2022 12:04 AM ATHLETIC TRAINER) Vitamin B12 489 213 - 816 pg/mL 05/31/2022 1:37 AM ATHLETIC TRAINER [facility] Blood BLOOD SPECIMEN / Unknown Lab Venipuncture / Unknown 05/31/2022 12:04 AM ATHLETIC TRAINER 05/31/2022 12:09 AM ATHLETIC TRAINER Tiffanie Conklin MD LAB - CHEMISTRY CATHY LARKIN Performing Organization Address [facility] Co de Phone Number [facility] [address] [place] [phone] * (ABNORMAL) TROPONIN I (05/30/2022 9:43 AM ATHLETIC TRAINER) Only the most recent of9 resultswithin the time period is included. Troponin I 0.043(HH) <0.038 ng/mL 05/30/2022 10:29 AM ATHLETIC TRAINER [facility] Blood BLOOD SPECIMEN / Unknown Lab Venipuncture / Unknown 05/30/2022 9:43 AM ATHLETIC TRAINER 05/30/2022 9:55 AM ATHLETIC TRAINER Tiffanie Conklin MD LAB - CHEMISTRY ORDE CHAYA Performing Organization Address [facility]/ZIP Co de Phone Number [facility] [address] [place], [place] [phone] * TSH REFLEX FREE T4 (05/30/2022 4:03 AM ATHLETIC TRAINER) Only the most recent of2 resultswithin the time period is included. TSH 4.205 0.350 - 4.940 uIU/mL 05/30/2022 5:45 AM [facility] Blood BLOOD SPECIMEN / Unknown Lab Venipuncture / Unknown 05/30/2022 4:03 AM ATHLETIC TRAINER 05/30/2022 4:56 AM ATHLETIC TRAINER Tanvir Munroe DO LAB - CHEMISTRY ORDSatinder LARKIN Performing Organization Address [facility] Co de Phone Number [facility] [address] [place], [place] [phone] * (ABNORMAL) CBC W/O DIFFERENTIAL (05/30/2022 4:03 AM ATHLETIC TRAINER) Only the most recent of3 resultswithin the time period is included. WBC 5.9 4.4 - 10.7 x10E9/L 05/30/2022 5:15 AM [facility] RBC 4.16 3.80 - 5.20 x10E12/L 05/30/2022 5:15 AM [facility] Hemoglobin 12.6 12.0 - 15.6 gm/dL 05/30/2022 5:15 AM [facility] Hematocrit 36.6 35.9 - 45.5 % 05/30/2022 5:15 AM [facility] MCV 88.0 80.7 - 98.3 fl 05/30/2022 5:15 AM [facility] MCH 30.3 26.7 - 34.0 pg 05/30/2022 5:15 AM [facility] MCHC 34.4 30.8 - 35.9 gm/dL 05/30/2022 5:15 AM [facility] Platelet Count 295 153 - 416 x10E9/L 05/30/2022 5:15 AM [facility] RDW-CV 11.9(L) 12.1 - 14.9 % 05/30/2022 5:15 AM ATHLETIC TRAINER [facility] MPV 9.1(L) 9.4 - 12.9 fl 05/30/2022 5:15 AM ATHLETIC TRAINER [facility] Blood BLOOD SPECIMEN / Unknown Lab Venipuncture / Unknown 05/30/2022 4:03 AM ATHLETIC TRAINER 05/30/2022 4:56 AM ATHLETIC TRAINER Tanvir Munroe DO LAB - HEMATOLOGY ORD ERABLES Performing Organization Address [facility]/ZIP Co de Phone Number [facility] [address] [place] [phone] * PHOSPHORUS BLOOD (05/30/2022 4:03 AM ATHLETIC TRAINER) Phosphorus 2.9 2.3 - 4.7 mg/dL 05/30/2022 5:23 AM ATHLETIC TRAINER [facility] Blood BLOOD SPECIMEN / Unknown Lab Venipuncture / Unknown 05/30/2022 4:03 AM ATHLETIC TRAINER 05/30/2022 4:56 AM ATHLETIC TRAINER Tanvir Munroe DO LAB - CHEMISTRY ORDE RABKAREN Performing Organization Address [facility] de Phone Number [facility] [address] [place] [phone] * (ABNORMAL) OSMOLALITY BLOOD (05/30/2022 4:03 AM ATHLETIC TRAINER) Only the most recent of2 resultswithin the time period is included. Osmolality 257(L) 280 - 300 mOsm/kg 05/30/2022 5:13 AM ATHLETIC TRAINER [facility] Blood BLOOD SPECIMEN / Unknown Lab Venipuncture / Unknown 05/30/2022 4:03 AM ATHLETIC TRAINER 05/30/2022 4:56 AM ATHLETIC TRAINER Tanvir Munroe DO LAB - CHEMISTRY ORDE RABKAREN Performing Organization Address [facility] Co de Phone Number [facility] [address] [place] [phone] * OSMOLALITY URINE (05/30/2022 2:17 AM ATHLETIC TRAINER) Only the most recent of2 resultswithin the time period is included. Osmolality Urine 112 50 - 1,200 mOsm/kg 05/30/2022 2:35 AM ATHLETIC TRAINER [facility] Urine URINE SPECIMEN OBTAINED BY CLEAN CATCH PROCEDURE / Unknown Collection / Unknown 05/30/2022 2:17 AM ATHLETIC TRAINER 05/30/2022 2:21 AM ATHLETIC TRAINER Tanvir Munroe DO LAB - URINE CHEMISTR Y ORDERABLES Performing Organization Address [facility] Co de Phone Number [facility] [address] [place] [phone] * LYTES (NA K CL) URINE RANDOM PANEL (05/30/2022 2:17 AM ATHLETIC TRAINER) Sodium Urine 31 mmol/L 05/30/2022 2:45 AM ATHLETIC TRAINER [facility] Potassium Urine 10.8 mmol/L 05/30/2022 2:45 AM ATHLETIC TRAINER [facility] Chloride Urine 22.0 mmol/L 05/30/2022 2:45 AM ATHLETIC TRAINER [facility] Urine URINE SPECIMEN OBTAINED BY CLEAN CATCH PROCEDURE / Unknown Collection / Unknown 05/30/2022 2:17 AM ATHLETIC TRAINER 05/30/2022 2:21 AM ATHLETIC TRAINER Tanvir Munroe DO LAB - URINE CHEMISTR Y ORDERABLES Performing Organization Address [facility] de Phone Number [facility] [address] [place] [phone] * CREATININE URINE RANDOM (05/30/2022 2:17 AM ATHLETIC TRAINER) Creatinine Urine 14.76 mg/dL 05/30/2022 2:45 AM ATHLETIC TRAINER [facility] Urine URINE SPECIMEN OBTAINED BY CLEAN CATCH PROCEDURE / Unknown Collection / Unknown 05/30/2022 2:17 AM ATHLETIC TRAINER 05/30/2022 2:21 AM ATHLETIC TRAINER Tanvir Munroe DO LAB - URINE CHEMISTR Y ORDERABLES Performing Organization Address [facility] Co de Phone Number [facility] [address] [place] [phone] * (ABNORMAL) URINALYSIS REFLEX TO MICROSCOPIC NO CULTURE (05/30/2022 1:03 AM ATHLETIC TRAINER) Only the most recent of2 resultswithin the time period is included. Color UA Yellow Straw, Yellow 05/30/2022 1:10 AM [facility] Clarity UA Clear Clear 05/30/2022 1:10 AM [facility] Glucose UA Negative Negative 05/30/2022 1:10 AM [facility] Bilirubin UA Negative Negative 05/30/2022 1:10 AM [facility] Ketone UA Negative Negative 05/30/2022 1:10 AM [facility] Specific [place] UA 1.010 1.005 - 1.030 05/30/2022 1:10 AM [facility] Blood UA Trace(A) Negative 05/30/2022 1:10 AM [facility] pH UA 7.0 5.0 - 8.0 pH 05/30/2022 1:10 AM [facility] Protein UA Negative Negative 05/30/2022 1:10 AM [facility] Urobilinogen UA Negative Negative mg/dL 05/30/2022 1:10 AM [facility] Nitrite UA Negative Negative 05/30/2022 1:10 AM [facility] Leukocyte UA 1+(A) Negative 05/30/2022 1:10 AM [facility] Urine Microscopy Urine microscopy to follow 05/30/2022 1:10 AM [facility] Urine URINE SPECIMEN OBTAINED BY CLEAN CATCH PROCEDURE / Unknown Collection / Unknown 05/30/2022 1:03 AM ATHLETIC TRAINER 05/30/2022 1:04 AM [facility] Violeta Bailey OFFICE AUTOMATION TECHNICIAN-SECOND WATCH SERGEANT LAB - URINALY SIS ORDERABLES [facility] [address] [place] [phone] * URINE MICROSCOPIC ONLY (05/30/2022 1:03 AM ATHLETIC TRAINER) RBC UA 0-2 0 - 5 # /hpf 05/30/2022 1:08 AM [facility] WBC UA 0-5 0 - 5 # /hpf 05/30/2022 1:08 AM ATHLETIC TRAINER [facility] Bacteria UA None Seen None Seen 05/30/2022 1:08 AM ATHLETIC TRAINER [facility] Squamous Epithelial Cells None Seen 0 - 5 /hpf 05/30/2022 1:08 AM ATHLETIC TRAINER [facility] Urine URINE SPECIMEN OBTAINED BY CLEAN CATCH PROCEDURE / Unknown Collection / Unknown 05/30/2022 1:03 AM ATHLETIC TRAINER 05/30/2022 1:04 AM ATHLETIC TRAINER Narrative [facility] - 05/30/2022 1:08 AM ATHLETIC TRAINER Violeta Bailey APRNClusterSeven LAB - URINALY SIS ORDERABLES Performing Organization Address City/[facility]/ZIP Co de Phone Number [facility] [address] [place] [address] * EKG 12-LEAD (05/29/2022 8:11 PM ATHLETIC TRAINER) Only the most recent of5 resultswithin the time period is included. Ventricular Rate 67 BPM [facility] Atrial Rate 67 BPM [facility] P-R Interval 156 ms [facility] QRS Duration ms 104 ms [facility] Q-T Interval ms 430 ms [facility] QTC Calculation (Bezet) 454 ms [facility] Calculated P [place] 30 degrees [facility] Calculated R [place] -33 degrees [facility] Calculated T G[place] 10 degrees [facility] Interpretation EKG NORMAL SINUS RHYTHM LEFT AXIS DEVIATION MODERATE VOLTAGE CRITERIA FOR LVH, MAY BE NORMAL VARIANT ( R in aVL , Herbert product ) CANNOT RULE OUT ANTEROSEPTAL INFARCT (CITED ON OR BEFORE 11-FEB-2019) ABNORMAL ECG Confirmed by DO LANCASTER STEPHANIE ([id number]) on 05/30/2022 2:31:51 PM [facility]USE 05/29/2022 8:11 PM ATHLETIC TRAINER 05/30/2022 2:31 PM ATHLETIC TRAINER Violeta Bailey APRN-SECOND WATCH SERGEANT ECG ORDERABLE S Performing Organization Address City/[facility]/ZIP Co de Phone Number [facility] * XR CHEST 2VW (05/29/2022 7:30 PM ATHLETIC TRAINER) Only the most recent of3 resultswithin the time period is included. Anatomical Region Laterality Modality Chest Radiographic Mayuri ging 05/29/2022 7:34 PM ATHLETIC TRAINER Impressions 05/29/2022 7:35 PM ATHLETIC TRAINER IMPRESSION: No significant findings > Interpreting Provider: Kathya So MD on 05/29/2022 7:35 PM Narrative 05/29/2022 7:35 PM ATHLETIC TRAINER PROCEDURE: ??XR CHEST 2VW, DATE/TIME OF EXAM: ??05/29/2022 7:31 PM, LOCATION [facility] INDICATION: R41.82: Altered mental status, unspecified ADDITIONAL CLINICAL INFORMATION: Ordering Provider Reason For Exam: Technologist Note: Additional: COMPARISON: Chest from 09/30/2020 FINDINGS: The lungs are now clear and free of effusion. ??The heart, mediastinum and bony thorax are unremarkable except for incidental thoracic spurs. Procedure Note Kathya So MD - 05/29/2022 PROCEDURE: XR CHEST 2VW, DATE/TIME OF EXAM: 05/29/2022 7:31 PM, LOCATION [facility] INDICATION: R41.82: Altered mental status, unspecified ADDITIONAL CLINICAL INFORMATION: Ordering Provider Reason For Exam: Technologist Note: Additional: COMPARISON: Chest from 09/30/2020 FINDINGS: The lungs are now clear and free of effusion. The heart, mediastinumand bony thorax are unremarkable except for incidental thoracic spurs. IMPRESSION: No significant findings > Interpreting Provider: Kathya So MD on 05/29/2022 7:35 PM Violeta Bailey OFFICE AUTOMATION TECHNICIAN-SECOND WATCH SERGEANT DIAGNOSTIC IM AGING ORDERABLES * CT HEAD WO CONTRAST (05/29/2022 7:09 PM ATHLETIC TRAINER) Only the most recent of3 resultswithin the time period is included. Anatomical Region Laterality Modality Head Computed Tomogra phy 05/29/2022 7:25 PM ATHLETIC TRAINER Impressions 05/29/2022 7:31 PM ATHLETIC TRAINER IMPRESSION: 1. ??No acute findings 2. ??Age-related changes > Interpreting Provider: Kathya So MD on 05/29/2022 7:31 PM Narrative 05/29/2022 7:31 PM ATHLETIC TRAINER PROCEDURE: ??CT HEAD WO CONTRAST, DATE/TIME OF EXAM: ??05/29/2022 7:10 PM, LOCATION ??[facility] INDICATION: R41.82: Altered mental status, unspecified ADDITIONAL CLINICAL INFORMATION: Ordering Provider Reason For Exam: Technologist Note: ??Confusion for a week Additional: COMPARISON: Head CT from 08/26/2021 TECHNIQUE: Noncontrast CT brain was performed utilizing standard protocol. CT dose reduction technique was used, including Automated Exposure Control. FINDINGS: There is no CT evidence for acute ischemia, mass or hemorrhage. ??No extra-axial fluid collection, shift or hydrocephalus. 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 ??Mild sulcal widening and ventricular enlargement is consistent with age. The visualized paranasal sinuses and mastoid air cells are clear. Procedure Note Kathya So MD - 05/29/2022 PROCEDURE: CT HEAD WO CONTRAST, DATE/TIME OF EXAM: 05/29/2022 7:10 PM, LOCATION [facility] INDICATION: R41.82: Altered mental status, unspecified ADDITIONAL CLINICAL INFORMATION: Ordering Provider Reason For Exam: Technologist Note: Confusion for a week Additional: COMPARISON: Head CT from 08/26/2021 TECHNIQUE: Noncontrast CT brain was performed utilizing standard protocol. CT dose reduction technique was used, including Automated ExposureControl. FINDINGS: There is no CT evidence for acute ischemia, mass or hemorrhage. No extra-axial fluid collection, shift or hydrocephalus. 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 Mild sulcal wideningand ventricular enlargement is consistent with age. The visualized paranasal sinuses and mastoid air cells are clear. IMPRESSION: 1. No acute findings 2. Age-related changes > Interpreting Provider: Kathya So MD on 05/29/2022 7:31 PM Violeta Bailey OFFICE AUTOMATION TECHNICIAN-SECOND WATCH SERGEANT CT ORDERABLES * APHERESIS/TRANSFUSION ORDER (10/04/2020 1:35 PM CDT) Narrative 10/04/2020 1:35 PM CDT Ordered by an unspecified provider. Scanned Document NURSING - VITAL SIGN S AND ASSESSMENT * PREPARE (CROSSMATCH) RBC UNIT(S), 2 Units (10/01/2020 12:05 PM CDT) Unit Description AS1 LR PRBC [facility] Unit ABO O [facility] Unit Rh NEG [facility] Product Number R43 [facility] Unit Donor # [id number] [facility] Unit Status released [facility] OD BANK LAB Product Code [id number] [facility] Blood Type Barcode 9500 [facility] Expiration Date S [facility] Unit Description AS1 LR PRBC [facility] Unit ABO O [facility] Unit Rh NEG [facility] Product Number R44 [facility] Unit Donor [facility] [id number] [facility] Unit Status released [facility] OD B[facility] Product Code [id number] [facility] Blood Type Barcode 9500 [facility] Expiration Date S [facility] Blood Bank BLOOD SPECIMEN / Unknown 09/23/2020 8:24 AM CDT Karri Faith MD LAB - BLOOD BANK ORD ERABLES [facility] [address] [phone] * (ABNORMAL) RENAL FUNCTION PANEL (10/01/2020 6:44 AM CDT) Glucose 92 70 - 105 mg/dL 10/01/2020 7:41 AM CDT [facility] Sodium 126(L) 136 - 145 mmol/L 10/01/2020 7:41 AM CDT [facility] Potassium 3.8 3.5 - 5.1 mmol/L 10/01/2020 7:41 AM CDT [facility] Chloride 93(L) 98 - 107 mmol/L 10/01/2020 7:41 AM CDT [facility] CO2 27 23 - 31 mmol/L 10/01/2020 7:41 AM CDT [facility] Calcium 9.6 8.4 - 10.4 mg/dL 10/01/2020 7:41 AM CDT [facility] Anion Gap 6(L) 8 - 18 mmol/L 10/01/2020 7:41 AM CDT [facility] BUN 6(L) 9.8 - 20.1 mg/dL 10/01/2020 7:41 AM CDT [facility] Creatinine 0.68 0.57 - 1.11 mg/dL 10/01/2020 7:41 AM CDT [facility] Albumin 3.7 3.2 - 4.6 gm/dL 10/01/2020 7:41 AM CDT [facility] Phosphorus 2.8 2.3 - 4.7 mg/dL 10/01/2020 7:41 AM CDT [facility] eGFR by MDRD >60 mL/min/1.7 3m2 10/01/2020 7:41 AM CDT [facility] eGFR by MDRD >60 mL/min/1.7 3m2 10/01/2020 7:41 AM CDT [facility] Blood BLOOD SPECIMEN / Unknown Lab Venipuncture / Unknown 10/01/2020 6:44 AM CDT 10/01/2020 7:06 AM CDT Sharad Cortez MD LAB - CHEMISTRY O RDERABLES Performing Organization Address City/State/[facility] Co de Phone Number [facility] [address] [place] [address] * SODIUM URINE RANDOM (09/30/2020 2:11 PM CDT) Sodium Urine 26 mmol/L 09/30/2020 2:38 PM CDT [facility] Urine URINE SPECIMEN OBTAINED BY CLEAN CATCH PROCEDURE / Unknown Collection / Unknown 09/30/2020 2:11 PM CDT 09/30/2020 2:15 PM CDT Sharad Cortez MD LAB - URINE CHEMI STRY ORDERABLES [facility] [address] [place] [address] * XR CHEST 1VW PORTABLE (09/30/2020 8:10 AM CDT) Only the most recent of5 resultswithin the time period is included. Anatomical Region Laterality Modality Chest Radiographic Mayuri ging 09/30/2020 8:59 AM CDT Narrative 09/30/2020 9:05 AM CDT EXAM: AP RADIOGRAPH OF THE CHEST. History: Benign carcinoid tumor of the bronchus and lung Findings/Impression: A left thoracostomy tube is seen. No definite pneumothorax is identified. Minimal left basilar opacities are noted and there is a left pleural effusion. A trace right pleural effusion is seen. The heart appears normal in size. The mediastinal contours appear normal. Edited by Christen Pretty on 09/30/2020 9:00 AM *Reading Radiologist: Zhang Rabago on 09/30/2020 at 9:05 AM Procedure Note Zhang Rabago MD - 09/30/2020 EXAM: AP RADIOGRAPH OF THE CHEST. History: Benign carcinoid tumor of the bronchus and lung Findings/Impression: A left thoracostomy tube is seen. No definite pneumothorax is identified. Minimal left basilar opacities are noted and there is a left pleural effusion. A trace right pleural effusion is seen. The heart appears normal in size. The mediastinal contours appear normal. Edited by Christen Pretty on 09/30/2020 9:00 AM *Reading Radiologist: Zhang Rabago on 09/30/2020 at 9:05 AM Cole Odonnell MD DIAGNOSTIC IMAGING O RDERABLES * IV PLACEMENT PERFORMABLE (09/28/2020 9:09 AM CDT) Narrative Matias Gonzalez APRN-SEARCH LEAD - 09/28/2020 9:09 AM CDT Matias Gonzalez APRN-SECOND WATCH SERGEANT ? 09/28/2020 ??9:09 AM Peripheral IV Line Placement: Patient Location: ??OR Procedure: IV start (80668). Procedure Section: ?? Skin Prep: Chloraprep. Orientation: left Location: hand Catheter Gauge: 18 Number of Attempts: 1. Procedure Tolerance: performed while patient under general anesthesia. Procedure Start Time: 09/28/2020 8:04 AM. Staff Section ?? Anesthesia Provider: Karri Faith MD, Performed the procedure Karri Faith MD GENERAL ANESTHESIA O RDERABLES * PATHOLOGY TISSUE EXAM (STL) (09/28/2020 8:50 AM CDT) Only the most recent of2 resultswithin the time period is included. Case Report Surgical Pathology Report ? Case: [id number] ? Authorizing Provider: ??Cole Odonnell MD ?Collected: ? 09/28/2020 08:50 AM ? Ordering Location: ? [facility] ? Received: ?09/28/2020 12:30 PM ? Pathologist: ? Philomena Sotomayor MD ? Specimens: ?? A) - Lymph Node, level 9 lymph node ? B) - Lymph Node, level 11 lymph node ? C) - Lymph Node, Level 7 ? D) - Lymph Node, level 5 lymph node ? E) - Lung, Left lower lobe ? 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 Operative procedure: lobectomy, mediastinal lymph node dissection. 09/30/2020 12:58 PM CDT [facility] Gross Description The specimens are received in 5 containers for gross and microscopic examination, labeled with the patient's full name and date of . Received in formalin, specimen A, level 9 lymph node, is 1 soft, yellow-mcdowell tissue fragment measuring 1.1 x 0.9 x 0.4 cm, which contains 1 potential lymph node measuring 0.7 cm in greatest dimension. The specimen is submitted in toto in cassette A1. Received in formalin, specimen B, level 11 lymph node, is 1 soft, purple-mcdowell potential lymph node measuring 0.6 x 0.5 x 0.4 cm. The specimen is submitted in toto in cassette B1. Received in formalin, specimen C, lymph node level 7, is 1 hard, purple-mcdowell potential lymph node measuring 1.2 x 0.7 x 0.5 cm. The specimen is entirely submitted in cassette C1 after decalcification in Immunocal. Received in formalin, specimen D, level 5 lymph node, is an aggregate of soft and hard, yellow-mcdowell to purple-mcdowell tissue measuring 1.2 x 0.6 x 0.4 cm. Portion is the largest potential lymph node, which measures 0.9 cm in greatest dimension. Soft tissue fragments are submitted entirely in cassette D1, and the largest potential lymph node is entirely submitted in cassette D2 after decalcification in Immunocal. Received fresh, specimen E, lung left lower lobe, is a soft, red-mcdowell lung lobe that weighs 182 g and measures 15.2 x 9.7 x 3.5 cm. Neither the stapled hilum nor the pleural surfaces show any discrete lesions. The pleura is purple-mcdowell, smooth and otherwise unremarkable. Sectioning shows a rounded, white-mcdowell, firm tumor measuring 1.8 x 1.5 x 1.5 cm that is located 0.5 cm from the closest pleura and 4.5 cm from the hilar margins. The remaining cut surfaces are bellamy to brown-mcdowell and spongy with no other lesions. No hilar nodes are identified. Warehouse Logistics Coordinator sections submitted as follows: [id number] and vascular margins E3-E6-mass entirely with surrounding lung parenchyma and pleura, E7-normal lung parenchyma. SEVERINO 09/30/2020 12:58 PM T [facility] Microscopic Description Microscopic examination substantiates the above diagnosis. The tumor is morphologically identical to the patient's prior lung biopsy (on which Ki-67 staining highlighted less than 2% of tumor cells). The hyalinized mediastinal nodules are interpreted as hyalinized old lymph node granulomas; as such, the nodules are include in the lymph node count in the synoptic report. 09/30/2020 12:58 PM [facility] Disclaimer All histochemical and/or immunohistochemical results are interpreted with controls that demonstrate appropriate staining reactions before reporting results. Note on use of immunocytochemistry reagents: This test was developed and its performance characteristic determined by [facility], Department of Laboratory Medicine. It has not been cleared or approved by the U.S. Food and Drug Administration (FDA). The FDA has determined that such clearance or approval is not necessary. The test is used for clinical purpose. It should not be regarded as investigational or for research. This laboratory is certified to perform high complexity testing. The performance characteristics of the IHC/DEON assays have been validated on formalin-fixed paraffin embedded tissues only. The assays have not been validated on decalcified tissues. Results should be interpreted with caution. 09/30/2020 12:58 PM [facility] Synoptic Report LUNG ??(LUNG: RESECTION - All Specimens) 8th Edition - Protocol posted: 06/25/2019 SPECIMEN ?? Procedure: ?Lobectomy ?? Specimen Laterality: ?Left TUMOR ?? Tumor Site: ?Lower lobe of lung ?? Histologic Type: ?Typical carcinoid tumor ?? Histologic Grade: ?G1: Well differentiated ?? Tumor Size: ? Total Tumor Size (size of entire tumor): ?Greatest Dimension (Centimeters): 1.8 cm ?? Tumor Focality: ?Single focus ?? Visceral Pleura Invasion: ?Not identified ?? Direct Invasion of Adjacent Structures: ?No adjacent structures present ?? Treatment Effect: ?No known presurgical therapy ?? Lymphovascular Invasion: ?Not identified MARGINS ?? Margins: ?All margins are uninvolved by tumor ? Margins Examined: ?Bronchial ? Margins Examined: ?Vascular ? Distance of Invasive Carcinoma from Closest Margin (Centimeters): ?4.5 cm ? Closest Margin: ?Bronchial ? Closest Margin: ?Vascular LYMPH NODES ?? Number of Lymph Nodes Involved: ?0 ?? Number of Lymph Nodes Examined: ?4 ? Brad Stations Examined: ?7: Subcarinal ? Brad Stations Examined: ?5: Subaortic/ aortopulmonary (AP) / AP window ? Brad Stations Examined: ?9L: Pulmonary ligament ? Brad Stations Examined: ?11L: Interlobar PATHOLOGIC STAGE CLASSIFICATION (pTNM, AJCC 8th Edition) ?? Primary Tumor (pT): ?pT1b ?? Regional Lymph Nodes (pN): ?pN0 ADDITIONAL FINDINGS ?? Additional Findings: ?Emphysema 09/30/2020 12:58 PM CDT [facility] Embedded Images 09/30/2020 12:58 PM CDT [facility] Pathology/Cytology ENTIRE LYMPH NODE / Unknown 09/28/2020 8:50 AM CDT 09/28/2020 12:30 PM CDT Comment:Pre-op diagnosis: Diagnosis unknown [R69] Miscellaneous samples (specimen) ENTIRE LYMPH NODE / Unknown 09/28/2020 8:58 AM CDT 09/28/2020 12:30 PM CDT Comment:Pre-op diagnosis: Diagnosis unknown [R69] Miscellaneous samples (specimen) ENTIRE LYMPH NODE / Unknown 09/28/2020 10:21 AM CDT 09/28/2020 12:30 PM CDT Comment:Pre-op diagnosis: Diagnosis unknown [R69] Miscellaneous samples (specimen) ENTIRE LYMPH NODE / Unknown 09/28/2020 10:29 AM CDT 09/28/2020 12:30 PM CDT Comment:Pre-op diagnosis: Diagnosis unknown [R69] Miscellaneous samples (specimen) ENTIRE LUNG / Unknown 09/28/2020 10:31 AM CDT 09/28/2020 12:30 PM CDT Comment:Pre-op diagnosis: Diagnosis unknown [R69] Cole Odonnell MD LAB - PATHOLOGY/CYTO LOGY ORDERABLES [facility] [address] [place] [address] * ETT LINE PERFORMABLE (09/28/2020 8:28 AM CDT) Narrative Matias Gonzalez APRN-CRNA - 09/28/2020 8:28 AM CDT Matias Gonzalez APRN-CNP ? 09/28/2020 ??8:33 AM Endotracheal Tube Placement: ? Patient Location: OR. Intubation Event Date/Time: ??09/28/2020 7:49 AM Procedure: intubation (54901). Procedure Section: ?? Sedation: under general anesthesia. Indications for Airway Management: ??anesthesia Induction: standard IV Patient Position: ??sniffing Mask Ventilation: easy with oral airway. Blade Type: Video (3 total attempts; first 2 with MAC 4; grade 1 view but unable to advance FARA; switched to GS, grade 1 view and able to pass D35FR FARA) Blade Size: 3 Laryngoscopy View: grade 1 (full cords) Intubation Adjuncts: video laryngoscope and cricoid pressure Tube: double lumen Placement: oral Tube type: cuff - inflated Tube Size (FR): 35 Depth of Insertion (CM): 27 Measured From: teeth Cuff Inflated With: air Number of Attempts: 3. Placement Verified By: bilateral breath sounds, direct visualization, bronchoscope and CO2 monitor Tube secured with: ??adhesive tape. Dentition unchanged? ??Yes Difficult Airway? ??No. Procedure Start Time: 09/28/2020 7:49 AM. Staff Section ?? Anesthesia Provider: Matias Gonzalez APRN-CNP, Performed the procedure Provider #1: Karri Faith MD. Additional Comments: Grade 1 view with MAC 4 x 2 attempts. Unable to pass 37 FR left sided FARA due to resistance. 3rd attempt with size 3 glidescope and 35 FR left sided FARA successful. Decadron IV given for airway.. Karri Faith MD GENERAL ANESTHESIA O RDERABLES * ARTERIAL LINE PERFORMABLE (09/28/2020 8:26 AM CDT) Narrative Matias Gonzalez APRN-CRNA - 09/28/2020 8:26 AM CDT Matias Gonzalez APRN-CNP ? 09/28/2020 ??8:27 AM Arterial Line Placement Procedure Note Patient Location: OR. Procedure: Arterial Line ([id number]). Procedure Section ?? Indications: continuous blood pressure monitoring. Consent: informed consent was obtained for the procedure. Alternatives Discussed: ??alternative treatment and no treatment Patient Sedated? ??No Skin Prep: Chloraprep. Location: right radial. Site Identification: palpation. Sterile Technique: sterile gloves, mask and cap. Local Anesthetic Used? ??Yes ? Local Types: lidocaine (XYLOCAINE MPF) 1 % injection, 1 mL. Gauge: 20. Seldinger Technique Used? ??Yes Number of Attempts: 1. Line Secured with: tape and Tegaderm. Procedure Tolerance: tolerated well. Events: none. Procedure Start Time: 09/28/2020 7:20 AM. Procedure End Time: 09/28/2020 7:24 AM. Procedure Total Time: 4 ??minutes. Staff Section ?? Anesthesia Provider: Matias Gonzalez APRN-CNP, Performed the procedure Karri Faith MD GENERAL ANESTHESIA O RDERABLES * BLOOD TYPE VERIFICATION (09/28/2020 6:40 AM CDT) ABO Rh O NEG 09/28/2020 7:2 1 AM CDT [facility] Blood Bank BLOOD SPECIMEN / Unknown Venipuncture / Unknown 09/28/2020 6:40 AM CDT 09/28/2020 6:46 AM CDT Karri Faith MD LAB - BLOOD BANK ORD ERABLES [facility] [address] [phone] * URINALYSIS REFLEX MICROSCOPIC REFLEX CULTURE (09/23/2020 8:09 AM CDT) Only the most recent of3 resultswithin the time period is included. Color UA Yellow Straw, Yellow 09/23/2020 8:31 AM CDT [facility] Clarity UA Clear Clear 09/23/2020 8:31 AM CDT [facility] Glucose UA Negative Negative 09/23/2020 8:31 AM CDT [facility] Bilirubin UA Negative Negative 09/23/2020 8:31 AM CDT [facility] Ketone UA Negative Negative 09/23/2020 8:31 AM CDT [facility] Specific [place] UA 1.008 1.005 - 1.030 09/23/2020 8:31 AM CDT [facility] Blood UA Negative Negative 09/23/2020 8:31 AM CDT [facility] pH UA 8.0 5.0 - 8.0 pH 09/23/2020 8:31 AM CDT [facility] Protein UA Negative Negative 09/23/2020 8:31 AM CDT [facility] Urobilinogen UA Negative Negative mg/dL 09/23/2020 8:31 AM CDT [facility] Nitrite UA Negative Negative 09/23/2020 8:31 AM CDT [facility] Leukocyte UA Negative Negative 09/23/2020 8:31 AM CDT [facility] Urine Microscopy Urine microscopy not indicated 09/23/2020 8:31 AM CDT [facility] Reflex Status Culture not indicated 09/23/2020 8:31 AM CDT [facility] Urine URINE SPECIMEN OBTAINED BY CLEAN CATCH PROCEDURE / Unknown Collection / Unknown 09/23/2020 8:09 AM CDT 09/23/2020 8:24 AM CDT Narrative [facility] - 09/23/2020 8:31 AM CDT Cole Odonnell MD LAB - URINALYSIS ORD ERABLES Performing Organization Address [place]/[facility] Co de Phone Number [facility] [address] [place] [address] * TYPE + SCREEN PANEL (09/23/2020 8:09 AM CDT) ABO Rh O NEG 09/23/2020 9:00 AM CDT [facility] Comment:No history; collect retype. Antibody Screen NEG 9:00 AM CDT [facility] Blood Bank BLOOD SPECIMEN / Unknown Venipuncture / Unknown 09/23/2020 8:09 AM CDT 09/23/2020 8:24 AM CDT Cole Odonnell MD LAB - BLOOD BANK ORD ERABLES [facility] [address] [place] [id number] [phone] * PTT (09/23/2020 8:09 AM CDT) Only the most recent of2 resultswithin the time period is included. PTT 37.1 23.0 - 38.4 sec 09/23/2020 8:38 AM CDT [facility] Blood BLOOD SPECIMEN / Unknown Venipuncture / Unknown 09/23/2020 8:09 AM CDT 09/23/2020 8:24 AM CDT Narrative [facility] - 09/23/2020 8:38 AM CDT Heparin Therapeutic Range for PTT: ??71.0 - 109.0 seconds. Cole Odonnell MD LAB - COAGULATION OR DERABLES Performing Organization Address [facility] de Phone Number [facility] [address] [place] [address] * PT-INR (09/23/2020 8:09 AM CDT) Only the most recent of3 resultswithin the time period is included. PT 12.3 12.1 - 14.8 sec 09/23/2020 8:37 AM CDT [facility] INR 0.9 0.9 - 1.1 09/23/2020 8:37 AM CDT [facility] Blood BLOOD SPECIMEN / Unknown Venipuncture / Unknown 09/23/2020 8:09 AM CDT 09/23/2020 8:24 AM CDT Narrative [facility] - 09/23/2020 8:37 AM CDT Conventional Warfarin Anticoagulant Therapy: INR Reference Range: ??2.0-3.0 Intensive Warfarin Anticoagulant Therapy: INR Reference Range: ? 2.5-3.5 Cole Odonnell MD LAB - COAGULATION OR DERABLES Performing Organization Address [facility] Co de Phone Number [facility] [address] [place] [id number] * SIX MINUTE WALK (08/06/2020 2:12 PM CDT) Narrative Ruiz Snow MD - 08/06/2020 2:12 PM CDT Ruiz Snow MD ? 08/06/2020 ??2:17 PM 6 Minute Walk distance test: ??08/06/2020 Indication: ??Left lower lobe lung cancer baseline/date ?? Resting Oxygen flow RA Resting pulse Oximetry 97 % Resting heart rate (BPM) 62 Resting BP mm/Hg ?? Duration of walk (minutes) 6 Distance covered ?? 1111 ??feet Oxygen saturation tej 97 Concluding heart rate (BPM) 94 Luke dyspnea scale 0/10 BP at end of test mm/Hg 195/65 ?? Heart rate during recovery (BPM) 65 Pulse Oximetry during recovery 100 % Interpretation: This was a 6 minute walk test. ??Ms. Nolasco was able to walk 1,111 ft. No dyspnea with activity. No Oxygen desaturation was seen with exercise. ?? Please correlate clinically. Ruiz Snow MD, [facility] Ruiz Snow MD RESPIRATORY THERAPY ORDERABLES * COMPLETE PFT W/WO BRONCHODILATOR (08/06/2020 2:09 PM CDT) Narrative [facility] - 08/06/2020 2:09 PM CDT Ruiz Snow MD ? 08/06/2020 ??2:21 PM PULMONARY FUNCTION TEST ABG: ??PH 7.45, pCO2 37 mm of mercury. ??PO2 82 mm of mercury. ?? HC03 25 milliequivalent/liter. ??O2 sat 96% ??Oxyhemoglobin saturation 96%. ??Carboxyhemoglobin 0.3%. ??Methemoglobin 0.5% Interpretation: The flow volume loops and the volume time loops were reviewed and they were acceptable. The results show normal forced vital capacity, normal forced expiratory volume in the 1st second, and normal FEV1/ FVC ratio. Lung volumes show normal total lung capacity and normal residual volume/total lung capacity ratio. Diffusion capacity is normal. Arterial blood gas showed metabolic and respiratory alkalosis. Impression: No obstructive defect, normal spirometry. There is no significant response to bronchodilators, but that does not preclude their clinical use. Lung volumes are normal. Diffusion capacity is normal. This is a normal pulmonary function test. Arterial blood gas showed metabolic and respiratory alkalosis. Please correlate clinically. Ruiz Snow MD, FCCP. Be advised that voice recognition software was used in the production of this record. ??Errors in interpretation may have been inadvertently missed during review. Procedure Note Ruiz Snow MD - 08/06/2020 2:09 PM CDT Images from the original note were not included. PULMONARY FUNCTION TEST ABG: PH 7.45, pCO2 37 mm of mercury. PO2 82 mm of mercury. HC03 25milliequivalent/liter. O2 sat 96% Oxyhemoglobin saturation 96%.Carboxyhemoglobin 0.3%. Methemoglobin 0.5% Interpretation: The flow volume loops and the volume time loops were reviewed and theywere acceptable. The results show normal forced vital capacity, normalforced expiratory volume in the 1st second, and normal FEV1/ FVC ratio. Lung volumes show normal total lung capacity and normal residualvolume/total lung capacity ratio. Diffusion capacity is normal. Arterial blood gas showed metabolic and respiratory alkalosis. Impression: No obstructive defect, normal spirometry. There is no significant responseto bronchodilators, but that does not preclude their clinical use. Lung volumes are normal. Diffusion capacity is normal. This is a normal pulmonary function test. Arterial blood gas showed metabolic and respiratory alkalosis. Please correlate clinically. Ruiz Snow MD, FCCP. Be advised that voice recognition software was used in the production ofthis record. Errors in interpretation may have been inadvertently missedduring review. Ruiz Snow MD RESPIRATORY THERAPY ORDERABLES [facility] * PET CT SKULL TO MID THIGH (08/06/2020 10:47 AM CDT) Anatomical Region Laterality Modality Head, Lower Extremity Nuclear Me dicine 08/06/2020 4:31 PM CDT Impressions 08/06/2020 4:46 PM CDT 1. Moderately FDG avid left lower lobe pulmonary nodule is consistent with biopsy proven carcinoid tumor. Of note, gallium-68 dotatate or the new copper-64 dotatate PET/CT are more sensitive than FDG PET/CT for neuroendocrine tumors. 2. No FDG avid mediastinal lymphadenopathy or evidence of distant metastasis. *Reading Radiologist: Susi Pompa on 08/06/2020 at 4:46 PM Narrative 08/06/2020 4:46 PM CDT Procedure: PET/CT study Referring physician: Dr. 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 Evaluate for initial treatment strategy. TECHNIQUE: 11.57 mCi of F-18 FDG by IV in the right antecubital fossa. PET/CT image acquisition from the base of the skull to upper thighs after approximately 59 minutes postinjection with a CT being low dose, noncontrast. No separate report for the CT was generated since it was used for attenuation correction and anatomic localization. Blood glucose level of the time of injection was 106 mg/DL. COMPARISON: CT dated 05/10/2020 FINDINGS: HEAD AND NECK: ??There is no abnormal FDG uptake. CHEST: There is a moderately FDG avid left lower lobe pulmonary nodule measuring 1.3 cm with SUV Max 4.5, consistent with biopsy proven malignancy. Subtle linear scarring is noted upper lobes bilaterally without increased metabolic activity. Bibasilar atelectasis. No evidence of pneumothorax or pleural effusion. Calcified mediastinal nodes without increased metabolic activity, benign. There are no abnormal FDG avid mediastinal nodes. Benign-appearing bilateral axillary nodes. Atherosclerotic calcifications within the coronary arteries. ABDOMEN AND PELVIS: Increased metabolic activity in the distal esophagus is likely inflammatory. The liver, kidneys, adrenal glands, spleen and pancreas are grossly unremarkable. Heterogeneous FDG uptake within the bowel, normal variant. Benign-appearing bilateral inguinal nodes. Calcified uterine fibroids are noted. For reference, SUV max of liver is 4.3. MUSCULOSKELETAL: Inflammatory changes in the shoulders and hips. Degenerative changes throughout the spine. No FDG avid lytic or blastic lesions are noted. There is no abnormal FDG avid lesion. Procedure Note Susi Pompa, DO - 08/06/2020 Procedure: PET/CT study Referring physician: Dr. 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 Evaluate for initial treatment strategy. TECHNIQUE: 11.57 mCi of F-18 FDG by IV in the right antecubital fossa. PET/CT image acquisition from the base of the skull to upper thighs after approximately 59 minutes postinjection with a CT being low dose, noncontrast. No separate report for the CT was generated since it was used for attenuation correction and anatomic localization. Blood glucose level of the time of injection was 106 mg/DL. COMPARISON: CT dated 05/10/2020 FINDINGS: HEAD AND NECK: There is no abnormal FDG uptake. CHEST: There is a moderately FDG avid left lower lobe pulmonary nodule measuring 1.3 cm with SUV Max 4.5, consistent with biopsy proven malignancy. Subtle linear scarring is noted upper lobes bilaterally without increased metabolic activity. Bibasilar atelectasis. No evidence of pneumothorax or pleural effusion. Calcified mediastinal nodes without increased metabolic activity, benign. There are no abnormal FDG avid mediastinal nodes. Benign-appearing bilateral axillary nodes. Atherosclerotic calcifications within the coronary arteries. ABDOMEN AND PELVIS: Increased metabolic activity in the distal esophagus is likely inflammatory. The liver, kidneys, adrenal glands, spleen and pancreas are grossly unremarkable. Heterogeneous FDG uptake within the bowel, normal variant. Benign-appearing bilateral inguinal nodes. Calcified uterine fibroids are noted. For reference, SUV max of liver is 4.3. MUSCULOSKELETAL: Inflammatory changes in the shoulders and hips. Degenerative changes throughout the spine. No FDG avid lytic or blastic lesions are noted. There is no abnormal FDG avid lesion. IMPRESSION 1. Moderately FDG avid left lower lobe pulmonary nodule is consistent with biopsy proven carcinoid tumor. Of note, gallium-68 dotatate or the new copper-64 dotatate PET/CT are more sensitive than FDG PET/CT for neuroendocrine tumors. 2. No FDG avid mediastinal lymphadenopathy or evidence of distant metastasis. *Reading Radiologist: Susi Pompa on 08/06/2020 at 4:46 PM Ruiz Snow MD ID ORDERABLES * BLOOD GASES ARTERIAL (08/06/2020 8:11 AM CDT) pH Arterial 7.45 7.35 - 7.45 pH 08/06/2020 8:49 AM CDT [facility] pCO2 Arterial 37 35 - 45 mm hg 08/06/2020 8:49 AM CDT [facility] pO2 Arterial 82 80 - 100 mm hg 08/06/2020 8:49 AM CDT [facility] HCO3 Arterial 25 22 - 26 mmol/L 08/06/2020 8:49 AM CDT [facility] BE Arterial 0.8 -2.0 - 2.0 mmol/L 08/06/2020 8:49 AM CDT [facility] O2 Saturation Arterial 96 90 - 100 % 08/06/2020 8:49 AM CDT [facility] Hemoglobin Arterial 13.3 12.0 - 15.6 gm/dL 08/06/2020 8:49 AM CDT [facility] Carboxyhemoglobin Arterial 0.3 0.0 - 2.5 % 08/06/2020 8:49 AM CDT [facility] Methemoglobin Arterial 0.5 0.0 - 2.0 % 08/06/2020 8:49 AM CDT [facility] Oxyhemoglobin Arterial 96 % 08/06/2020 8:49 AM CDT [facility] O2 Content Arterial 17.9 % 08/06 8:49 AM CDT [facility] Mark's Test Positive 08/06/2020 8:49 AM CDT [facility] Sample Site R Radial 08/06/2020 8:49 AM CDT [facility] Sample Type Arterial 08/06/2020 8:49 AM CDT [facility] Porcelain Enameling Supervisor ID [id number] 08/06/2020 8:49 AM CDT [facility] Blood, arterial ARTERIAL BLOOD SPECIMEN / Unknown 08/06/2020 8:11 AM CDT 08/06/2020 8:11 AM CDT Ruiz Snow MD LAB - BLOOD GASES OR DERABLES Performing Organization Address City/State/[facility] Co de Phone Number [facility] [address] [place] [address] * XR CHEST PA OR AP (07/02/2020 12:22 PM ATHLETIC TRAINER) Anatomical Region Laterality Modality Chest Radiographic Mayuri ging 07/02/2020 12:5 2 PM ATHLETIC TRAINER Impressions 07/02/2020 12:53 PM ATHLETIC TRAINER Lungs clear, no pneumothorax *Reading Radiologist: Kathya So on 07/02/2020 at 12:53 PM Narrative 07/02/2020 12:53 PM ATHLETIC TRAINER Chest, one view portable DATE: 07/02/2020 at 1209 hours INDICATION: Post biopsy of a left lung nodule. FINDINGS: Since 0925 hours today there has been no change. ??The lungs remain clear and free of effusion. ??There is no pneumothorax. ??Incidental degenerative changes in the shoulders. Procedure Note Kathya So MD - 07/02/2020 Chest, one view portable DATE: 07/02/2020 at 1209 hours INDICATION: Post biopsy of a left lung nodule. FINDINGS: Since 0925 hours today there has been no change. The lungs remain clear and free of effusion. There is no pneumothorax. Incidental degenerative changes in the shoulders. IMPRESSION Lungs clear, no pneumothorax *Reading Radiologist: Kathya So on 07/02/2020 at 12:53 PM Ruiz Snow MD DIAGNOSTIC IMAGING O RDERABLES * CT LUNG BIOPSY (07/02/2020 9:04 AM ATHLETIC TRAINER) Anatomical Region Laterality Modality Chest Computed Tomogra phy 07/02/2020 12:5 1 PM ATHLETIC TRAINER Narrative 07/02/2020 1:01 PM ATHLETIC TRAINER History: 79-year-old female with indeterminate left lower lobe pulmonary nodule. Operators: 1. ??Dr. Rosita Flores, Attending Physician 2. ??Dr. Dustin Meyers, Resident Physician Anesthesia: 1. ??Local anesthesia - 10 mL of 1% lidocaine 2. ??Intravenous conscious sedation - Versed 1 mg and Fentanyl 50 mcg Procedure: 1. ??Limited non-contrast CT of the chest. 2. ??CT-guided core biopsy of a left lower lobe nodule. 3. ??Post-biopsy limited non-contrast CT of the chest. Start time: 822 ?End time: 854 ? Sedation initiated time: 825 Procedure in detail: The procedure, risks, and possible complications were explained to the patient in detail, and informed consent was obtained. The patient was placed in a prone position on the CT table and a radio-opaque grid was placed over the region of interest. Limited non-contrast CT of the chest showed a small round nodule in the left lung base with smooth margins adjacent to vessels and bronchi. A percutaneous entry site was marked on the skin to access the left lower lobe nodule. The patient received intravenous Versed and Fentanyl for conscious sedation. A qualified radiology nurse monitored the patient?s vital signs throughout the procedure. The marked site and skin around the region was prepped and draped in sterile fashion. Local anesthesia was provided with 1% Lidocaine. A 19-gauge co-axial needle system was advanced in stages under CT guidance. With the needle tip at the edge of the lesion, 4 20-gauge core samples were acquired with an 20-gauge biopsy gun. The samples were sent to the pathology service in formalin. The biopsy tract was embolized with a few milliliters of the patient's own blood (blood patch) during needle removal. Post-procedure limited non-contrast CT did not show any immediate complications such as pneumothorax or major hemorrhage. The patient tolerated the procedure well and was transferred to the holding area in stable condition. Impression: CT-guided core biopsy of a left lower lobe pulmonary nodule, as described above. The pathology report is pending at the time of this dictation. IDr. Flores, was present and performed/supervised the entire procedure. Moderate sedation on this adult patient was ordered by me, administered intravenously in my presence, and monitored by the procedure nurse as an independent trained observer who was present throughout the procedure. The following parameters were monitored: oxygen saturation, heart rate, blood pressure, and response to care. Intra-service sedation start time was 0826 and end time was 0855 during which I was present. Total physician intra-service sedation time was 29 minutes. For details on pre moderate sedation and post moderate sedation patient evaluation, please review the evaluation forms in [facility]. For details on monitored clinical parameters during the intra-service sedation time, please review the procedure nurse documentation in [facility]. Dictated by Dustin Meyers MD (resident physician). IRosita, have personally reviewed the images and I agree with this report. *Reading Radiologist: Rosita Flores on 07/02/2020 at 1:01 PM Procedure Note Rosita Flores MD - 07/02/2020 History: 79-year-old female with indeterminate left lower lobe pulmonary nodule. Operators: 1. Dr. Rosita Flores, Attending Physician 2. Dr. Dustin Meyers, Resident Physician Anesthesia: 1. Local anesthesia - 10 mL of 1% lidocaine 2. Intravenous conscious sedation - Versed 1 mg and Fentanyl 50 mcg Procedure: 1. Limited non-contrast CT of the chest. 2. CT-guided core biopsy of a left lower lobe nodule. 3. Post-biopsy limited non-contrast CT of the chest. Start time: 822 End time: 854 Sedation initiated time: 825 Procedure in detail: The procedure, risks, and possible complications were explained to the patient in detail, and informed consent was obtained. The patient was placed in a prone position on the CT table and a radio-opaque grid was placed over the region of interest. Limited non-contrast CT of the chest showed a small round nodule in the left lung base with smooth margins adjacent to vessels and bronchi. A percutaneous entry site was marked on the skin to access the left lower lobe nodule. The patient received intravenous Versed and Fentanyl for conscious sedation. A qualified radiology nurse monitored the patient?s vital signs throughout the procedure. The marked site and skin around the region was prepped and draped in sterile fashion. Local anesthesia was provided with 1% Lidocaine. A 19-gauge co-axial needle system was advanced in stages under CT guidance. With the needle tip at the edge of the lesion, 4 20-gauge core samples were acquired with an 20-gauge biopsy gun. The samples were sent to the pathology service in formalin. The biopsy tract was embolized with a few milliliters of the patient's own blood (blood patch) during needle removal. Post-procedure limited non-contrast CT did not show any immediate complications such as pneumothorax or major hemorrhage. The patient tolerated the procedure well and was transferred to the holding area in stable condition. Impression: CT-guided core biopsy of a left lower lobe pulmonary nodule, as described above. The pathology report is pending at the time of this dictation. Ruben, Dr. Flores, was present and performed/supervised the entire procedure. Moderate sedation on this adult patient was ordered by me, administered intravenously in my presence, and monitored by the procedure nurse as an independent trained observer who was present throughout the procedure. The following parameters were monitored: oxygen saturation, heart rate, blood pressure, and response to care. Intra-service sedation start time was 825 and end time was 854 during which I was present. Total physician intra-service sedation time was 29 minutes. For details on pre moderate sedation and post moderate sedation patient evaluation, please review the evaluation forms in [facility]. For details on monitored clinical parameters during the intra-service sedation time, please review the procedure nurse documentation in [facility]. Dictated by Dustin Meyers MD (resident physician). I, Rosita Flores, have personally reviewed the images and I agree with this report. *Reading Radiologist: Rosita Flores on 07/02/2020 at 1:01 PM Ruiz Snow MD CT ORDERABLES * LAB (06/27/2020) Only the most recent of2 resultswithin the time period is included. Scanned Document SCANNING ONLY * OR CT ABDOMEN&PELVIS W/CONTRAST (05/21/2020) Scanned Document OR - IMAGING * POLYSOMNOGRAM WITH CPAP IF INDICATED (05/15/2020 11:59 PM ATHLETIC TRAINER) Narrative Adria Pringle MD - 05/15/2020 11:59 PM ATHLETIC TRAINER Adria Pringle MD ? 05/17/2020 ??2:15 PM [facility] [place]? s [address] [place] [address] Accredited by The [place] [employer] DIAGNOSTIC POLYSOMNOGRAPHY REPORT PATIENT NAME: Audrey Nolasco DATE OF : 1940 study Date: 05/14/2020 DATE OF INTERPRETATION: May 17, 2020 Referring Physician: Adria Pringle MD cLINICAL iNDICATIONS: Symptoms suggestive of sleep apnea with snoring, witnessed apnea and hypersomnia. [place] Sleepiness Score of 1/24. The patient is a 79 year old Female who is 5' 3 and weighs 161.0 lbs. Her BMI equals 28.5. Polysomnogram Data: Overnight validation technician attended polysomnography was carried out utilizing continuous digital monitoring at the [facility]. Montage included measurements of EEG (electroencephalography), EOG (electro-oculography), EMG (electromyography), EKG, nasal and oral airflow (PTAF and thermistor), respiratory effort (abdominal and rib care movement RIP belts), oxygen saturation, snoring sounds, body position, video monitoring and limb movements. All data was visually scored and analyzed by standard criteria. All events are scored according to the current AASM criteria [place]. Hypopneas have a 30% reduction in air flow signals with a ?3% oxygen desaturation from pre-event baseline or the event is associated with an arousal. IB Hypopneas have a 30% reduction in air flow signal with a ?4% oxygen desaturation from pre-event baseline. FINDINGS: Sleep Architecture: Lights out: 09:45:17 PM ?Lights On: 04:41:13 AM The total recording time of the polysomnogram was 415.9 minutes. The total sleep time was 238.0 minutes, total sleep time supine was -. Sleep latency was 26.5 minutes with a sleep efficiency of 57.2% which is below normal. This may be related to the unfamiliar environment of the sleep center (First night effect), sleep disordered breathing, insomnia and clinical co relation is required. Total number of arousals were 59 with an arousal index of 14.9 per hour. Sleep Stages: N1 Sleep: 8.8% N2 Sleep: 55.0% N3 Sleep: 15.8% REM Sleep: 20.4% REM latency is 32.0. Respiratory Monitoring: The polysomnogram revealed a presence of - Apnea events (0 obstructive, 0 central, and 0 mixed apneas). There were 3 1B Hypopneas resulting in a CMS 1B AHI of 0.8 events per hour. REM index was 3.7 per hour of sleep with non-supine index of 0.8 per hour. There was no supine position diagnostic sleep data. There were 6 1A Hypopneas events scored, for an AASM 1A AHI of 1.5. REM Index was 4.9 per hour of sleep with non-supine index of 1.5 per hour. Based on these findings the patient has no significant sleep related apnea with mild upper airway resistance during REM sleep. There was mild snoring during study. Oxygen Data: Oxygen desaturation did occur to as low as 86.0%, with a mean oxygen saturation of 93.7%. It was associated with respiratory events. Oxygen saturation remained ?88% for 0.6 minutes. Movement Events: Periodic Limb Movements were present with an index of 41.8 per hour with an arousal index of 5.8 per hour. Treatment is required if clinically patient has symptoms for RLS/PLMD. Cardiac Monitoring: ?? No significant arrhythmias were detected during the sleep study. The average pulse rate while asleep was - bpm. Unusual behavior during sleep: None IMPRESSION: Patient with mild Upper Airway Resistance during REM sleep but overall no significant sleep apnea based on AHI of 1.5 per hour using 1A rule and 0.8 per hour using 1B rule. There was no supine position diagnostic sleep data underestimating severity of sleep apnea. Patient spent 0.6 minutes of diagnostic sleep time with saturation below 89%. Patient did not meet the split night criteria for initiation of CPAP therapy on the same night due to lack of TST and the events occurring in the later part of the night with inadequate time left for titration. 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 DIAGNOSIS: 1. ? Upper Airway Resistance ? (G47.8) ? 2. ? 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 RECOMMENDATIONS: Overall there was no significant sleep related hypoxemia or sleep apnea based on lateral position sleep data. Patient will benefit from strict LPT. 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 ??If clinically indicated workup and treatment of PLMD advised. Patient should be assessed and treated for sleep disordered breathing with positive airway pressure therapy (PAP) if LPT fail to help condition after repeating sleep study in supine body position. Some other treatment options for patients with sleep apnea include weight reduction, dental appliances, positional therapy and correction of upper airways. This should be individualized based on patient's characteristics, symptoms and co-morbidities. But none as affective as CPAP with increasing severity of sleep disordered breathing. Patient should be advised against driving or operating heavy equipment? s if has symptoms of excessive day time sleepiness. Regular sleep wake cycle and adequate hours of sleep is recommended. I have personally reviewed the entire raw data on the overnight PSG including the patient questionnaire, validation technician notes and all associated tabulated data. FOLLOW UP: My office will call the patient and arrange for follow up. Yary Covignton MD Manager Technologyspinning machine operator [facility] Diplomate of the [place] [employer] and Neurology Board certified in Sleep Medicine Adria Pringle MD SLEEP CENTER ORDERAB LES * (ABNORMAL) CREATININE BLOOD - POINT OF CARE (IP) (05/10/2020 12:25 PM ATHLETIC TRAINER) Creatinine POCT 0.60(A) 0.7 - 1.2 mg/dL [facility] POCT TESTING QC Verified Yes Yes [facility] POC T TESTING Blood BLOOD SPECIMEN / Unknown 05/10/2020 12:25 PM ATHLETIC TRAINER Ruiz Snow MD LAB - POINT OF CARE ORDERABLES [facility] POCT TESTING [address] [place] [address] * EVENT MONITOR (03/18/2020) Scanned Document SCANNING ONLY * EKG (02/23/2020) Only the most recent of3 resultswithin the time period is included. Scanned Document SCANNING ONLY * IMAGING RADIOLOGY XRAY RESULTS ORDER (02/23/2020) Only the most recent of2 resultswithin the time period is included. Anatomical Region Laterality Modality Other Scanned Document IMAGING * LAB RESULTS ORDER (02/21/2020) Only the most recent of4 resultswithin the time period is included. Scanned Document LAB - THERAPEUTIC DR UG MONITORING ORDERABLES * XR CHEST 1VW PORTABLE (02/21/2020) Only the most recent of2 resultswithin the time period is included. Anatomical Region Laterality Modality Other Scanned Document DIAGNOSTIC IMAGING O RDERABLES * CARDIAC STRESS TEST ORDER (02/11/2020) Scanned Document CARDIAC SERVICES ORD ERABLES * ECHOCARDIOGRAM 2D WITH DOPPLER (02/11/2020) Scanned Document ECHO ORDERABLES * MONITOR - HOLTER (05/08/2019) Impressions Liliya Liao - 05/08/2019 [facility] Health - Heart & Vascular - Holter Monitor Name: Audrey Cade : 1940 ?? Primary Care Physician:Melissa Simon MD Referring Physician: Yan Moon MD Clinical Indication: ??Palpitations. ??A 48h holter was placed on 03/26/19. Findings: 48 hour holter demonstrates sinus rhythm with an average heart rate of 65 bpm. The minimum HR was 45 bpm at 4:43am and the maximum HR was 118 bpm at 8:28am. ??There were 191 isolated atrial premature complexes and 34 isolated ventricular premature complexes. ??There were 4 brief episodes of SVT up to 9 beats at 132 bpm. ??There were no episodes of atrial fibrillation. ??The patient recorded 9 episodes of dizziness and shortness of breath. ??Corresponding strips demonstrate sinus. ?? Conclusion: 1. ??Sinus rhythm with very rare isolated APCs and PVCs. 2. ??There were 4 brief episodes of SVT up to 9 beats. 3. ??The patient recorded 9 episodes of dizziness and shortness of breath. ??Corresponding strips demonstrate sinus. ?? Thank you. Please do not hesitate to call if there are any questions. Manuel Willis MD [facility] Health - Heart & Vascular Care Office Manuel Willis MD CARDIAC SERVICES ORD ERABLES * (ABNORMAL) URINE MICROSCOPIC ONLY REFLEX TO CULTURE (02/11/2019 6:48 AM CDT) Only the most recent of2 resultswithin the time period is included. Reflex Status Culture to follow 02/11/2019 7:04 AM CDT [facility] RBC UA 3-5 None Seen, 0-2, 3-5 # /hpf 02/11/2019 7:04 AM CDT [facility] WBC UA 11-20(A) None Seen, 0-5 # /hpf 02/11/2019 7:04 AM CDT [facility] Bacteria UA Trace(A) None Seen 02/11/2019 7:04 AM CDT [facility] Squamous Epithelial Cells 0-2 None Seen, 0-2, 3-5 /hpf 02/11/2019 7:04 AM CDT [facility] Urine URINE SPECIMEN OBTAINED BY CLEAN CATCH PROCEDURE / Unknown Collection / Unknown 02/11/2019 6:48 AM CDT 02/11/2019 6:51 AM CDT Narrative [facility] - 02/11/2019 7:04 AM CDT Brittnee Salgado MD LAB - URINALYSIS ORD ERABLES Performing Organization Address [facility]/ZIP Co de Phone Number [facility] [address] [place], [place] [id number] * CULTURE URINE (02/11/2019 6:48 AM CDT) Only the most recent of2 resultswithin the time period is included. Culture Urine <10,000 CFU/mL urogenital lima NATHANIEL 02/12/2019 1:26 PM CDT [facility] Urine URINE SPECIMEN OBTAINED BY CLEAN CATCH PROCEDURE / Unknown Collection / Unknown 02/11/2019 6:48 AM CDT 02/11/2019 6:51 AM CDT Brittnee Salgado MD LAB - MICROBIOLOGY O RDERABLES Performing Organization Address City/[facility] Co de Phone Number [facility] [address] [phone] * T4 FREE DIRECT REFLEXED (02/11/2019 4:25 AM CDT) T4 Free 0.95 0.65 - 1.34 ng/dL 02/11/2019 10:10 AM CDT [facility] Blood BLOOD SPECIMEN / Unknown Venipuncture / Unknown 02/11/2019 4:25 AM CDT 02/11/2019 4:30 AM CDT Brittnee Salgado MD LAB - CHEMISTRY ORDE RABLES [facility] [address] [place] [address] * LIPASE BLOOD (12/06/2014 2:59 PM CDT) Lipase 94 10 - 220 U/L 12/06/2014 4:53 PM CDT [facility] Blood BLOOD SPECIMEN / Unknown Venipuncture / Unknown 12/06/2014 2:59 PM CDT 12/06/2014 4:36 PM CDT Cole Crump DO LAB - CHEMISTRY CATHY LARKIN [facility] [address] [place] [address] * XR LUMBAR SPINE 4+VW ROUTINE (04/12/2009 10:57 AM ATHLETIC TRAINER) Anatomical Region Laterality Modality Spine Radiographic Mayuri ging 04/12/2009 11:4 9 AM ATHLETIC TRAINER Impressions 04/12/2009 12:51 PM ATHLETIC TRAINER Degenerative changes. Narrative 04/12/2009 12:51 PM ATHLETIC TRAINER Lumbar spine 4 views: HISTORY: Low back pain, left thigh pain. FINDINGS: Multiple views of the lumbar spine demonstrate normal vertebral heights. There is interspace loss at L4-L4 and L5-S1 with sclerosis and spur formation seen on adjacent vertebral bodies. Sclerosis in the posterior elements is also seen. There is no spondylolisthesis or spondylolysis. Pedicles are intact. Procedure Note London Perez MD - 04/12/2009 Lumbar spine 4 views: HISTORY: Low back pain, left thigh pain. FINDINGS: Multiple views of the lumbar spine demonstrate normal vertebral heights. There is interspace loss at L4-L4 and L5-S1 with sclerosis and spur formation seen on adjacent vertebral bodies. Sclerosis in the posterior elements is also seen. There is no spondylolisthesis or spondylolysis. Pedicles are intact. IMPRESSION Degenerative changes. Melissa Simon MD DIAGNOSTIC IMAGING ORDERABLES Care Teams Regulatory And Compliance Technician Relationship Specialty Start Date End Date Melissa Simon MD [address] [place] [address] [phone] PCP - General Internal Medicine 06/30/22 Alek Moon MD [address] [facility] [address] [place] [address] Cardiovascular Disease 03/26/19
== END 2024-05-29 07:45 | disposition home or self-care (01) ==
PROVIDERS: PCP Obstetrics & Gynecology Gynecology; Visit Provider Internal Medicine
DX: Z78.0 Asymptomatic menopausal state (principal); M85.852 Other specified disorders of bone density and structure, left thigh; M85.851 Other specified disorders of bone density and structure, right thigh
CPT/HCPCS: 77080

== ENCOUNTER 2024-08-22 00:39 | Emergency (ER) | payer MEDICARE, BC, SELFPAY ==
--- OUTSIDE RECORDS SUMMARY | 2024-08-22 00:41 | XMS_ITS | Clinical Summary ---
Author Organization [facility] Address [address] [facility] [place] [address] Phone Care Team Providers Care General Neurologist Name Role Phone Unavailable Primary Care Provider Unavailabl e Allergies No known active allergies Medications amLODIPine (NORVASC) 5 mg tablet 09/26/2017 Active omega-3 fatty acids-fish oil 300-1,000 mg Capsule Take by mouth daily. Active Vit A,C,T-Uivo-Rezwn r (PRESERVISION AREDS) 14,320226-200 vdjq-du-tqce Capsule Take by mouth. Active coenzyme Q10 Capsule Take 10 mg by mouth daily. Active Active Problems No known active problems Family History Medical History Relation Name Comments Healthy Daughter Healthy Son Breast Cancer Neg Hx Colon Cancer Neg Hx Ovarian Cancer Neg Hx Relation Name Status Comments Daughter Alive Father Maternal Grandfather Maternal Grandmother Mother Paternal Grandfather Paternal Grandmother Son Alive Social History Tobacco Use Types Packs/Day Years Used Date Smoking Tobacco: Never Smokeless Tobacco: Never Alcohol Use Standard Drinks/Week Comments Yes 0 (1 standard drink = 0.6 oz pur e alcohol) 2 drinks a day Comments No Sex and Gender Information Value Date Recorded Sex Assigned at Not on file Legal Sex Female 3:36 PM CDT Gender Identity Not on file Sexual Orientation Not on file Last Filed Vital Signs Vital Sign Reading Time Taken Comments Blood Pressure 150/78 12/05/2017 9:33 AM CDT Pulse - - Temperature - - Respiratory Rate - - Oxygen Saturation - - Inhaled Oxygen Concentration - - Weight 72.1 kg (159 lb) 12/05/2017 9:33 AM CDT Height 160 cm (5' 3 ) 12/05/2017 9:33 AM CDT Body Mass Index 28.17 12/05/2017 9:33 AM CDT Plan of Treatment Health Maintenance Due Date Last Done Comments DTAP/TDAP/TD VACCINES (1 - Tdap) 1960 PNEUMOCOCCAL VACCINE 50+ YEA RS (1 of 1 - PCV) 10/08/1991 ZOSTER VACCINE (1 of 2) 10/08/1991 RSV VACCINE (60+ or ) (1 - 1-dose 75+ series) 2016 OSTEOPOROSIS SCREENING 08/29/2023 08/28/2018, 2014 INFLUENZA VACCINE (#1) 2023 Insurance MEDICARE PART A AND B [facility]
--- OUTSIDE RECORDS SUMMARY | 2024-08-22 00:41 | XMS_ITS ---
Author Organization [facility] Address [address] [place] [address] [address] [address] Care Team Providers Care Embedded Systems Developer Name Role Phone Aurora ZAYAS, Melissa Primary Care Provider Yuki Cortez MD, [facility] Allergies Allergen (clinical drug ingredient) Drug/Non Drug [...] 12/13/2023 Encounters Encounter Location Date Provider Diagnosis [address] [place] [id number] 12/13/2023 Sharad Cortez Hypo-osmolality and hyponatremia E87.1 and Hypertensive chronic kidney disease with stage 1 through stage 4 chronic kidney disease, or unspecified chronic kidney disease I12.9 Assessments Encounter Date Diagnosis (ICD Code) Assessment Notes Treatment Notes Treatment Clinical Notes Section Notes 12/13/2023 Hypo-osmolality and hyponatremia (ICD-10 - E87.1) she was admitted with altered mental status in April 2022 to [facility] Serum sodium was 124 on presentation Urine studies in keeping with water intoxication/ beer potomania She improved with conservative management Serum sodium is now up to 138 Will discontinue salt tablets Continue oral Lasix Encouraged to continue fluid restriction Okay to return to work, she works as a manager school, she is alert and oriented in all [...] Reason: Provider Name:Sharad garcia, 12/10/2024 10:30:00 AM, [address] [place] [address], [address] [place] [address], [id number], Progress Notes * Audrey DEGROOT ADOB:1940 (83 yo F)Acc No.[id number]:12/13/2023 Progress Notes Patient: Audrey PEREZ Provider: Sheldon Cortez MD :1940 A ge:83 Y S ex:Female Date:12/13/2023 Address:[address] [place], [place] [id number] Pcp:Melissa Simon MD Subjective: * Chief Complaints: * * HPI: S ymptom(s): 06/15/2022 Dorie amilcar is here for post hospital visit for hyponatremia [age]-year-old with longstanding hypertension, atrial fibrillation, carcinoid tumor, 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 I saw her in the hospital when she was admitted in April 2022 with altered mental status and a serum sodium of 124 F indings were in keeping with water intoxication/ psychogenic polydipsia S he improved with fluid restriction, salt tablets she returns today for follow-up visit S he is here again with her daughter Dorie edwigehina reports that she has been more compliant with fluid restriction and has not been drinking beer since discharge M ental status is back to normal M ost recent labs showed a serum sodium of 138 12/14/2022 P amilcar returns for follow-up visit S he drove herself, parked on [address] and walked across S he reports that she likes walking. goes to the pack every day she denies shortness of breath or lower extremity edema N o urinary symptoms H as been compliant with medications S tart taking Lasix and Norvasc since last visit M ost recent labs reviewed with her 12/13/2023 Dorie fitzgerald returns for follow-up visit C ompliant with medications N o complaints. * ROS: G eneral/Constitutional: Denies C hange in appetite. D enies C hills. D enies F ever. O phthalmologic: Denies B lurred vision. D enies D ischarge. D enies P ain. E NT: Denies D ecreased hearing. D enies S ore throat.?Denies S wollen glands. E ndocrine: Denies C old intolerance. D enies E xcessive thirst. D enies H eat intolerance. D enies W eight loss. R espiratory: Denies C ough. D enies S hortness of breath at rest. D enies S hortness of breath with exertion. D enies W heezing. C ardiovascular: Denies C hest pain at rest. D enies C hest pain with exertion. D enies I rregular heartbeat. D enies S hortness of breath. ? G astrointestinal: Denies A bdominal pain. D enies D iarrhea. D enies N ausea. D enies V omiting. G enitourinary: Denies B lood in urine. D enies D ifficulty urinating. D enies F requent urination. M usculoskeletal: Swelling of extremities d enies. D enies P ainful joints. D enies W eakness. S kin: Denies D ry skin. D enies I tching. D enies?Rash. N eurologic: Denies D izziness. D enies F ainting. D enies?Headache. * Medical History: * Surgical History: E ndoscopy Bronchoscopy eft lung lobectomy 2020 * Hospitalization/Major Diagno stic Procedure: N o Hospitalization History. * Family History: None. * Social History: T obacco Use: T obacco Use/Smoking A re you a n onsmoker. * Medications: T akingAcetaminophen 325 MG Tablet 1 tablet as needed [...] reviewed and reconciled with the patient * Allergies: A lprazolam: psychiatricAspirin 81: eye discomfortLisinopril: coughMetoprololAmlodipine: dizzinessCarvedilolEstrogensHydrochlorothiazideLosartan: palpitationsno[Allergies Verified] Objective: * Vitals: W t: 141 lbs, Ht: 62 in, BMI:25.79Index, BP:136/70mm Hg, HR: 68 /min, RR: 12 /min, Wt-k.96 kg. * P ast Orders: L ab:RENAL FUNCTION PANEL (Order Date - 11/29/2023) (Collection Date & Time - 12/11/2023 12:13 PM) Value Reference Range GLUCOSE 102 H 65-99 - mg/dL UREA NITROGEN (BUN) 14 7-25 - mg/dL CREATININE 0.64 0.60-0.95 - mg/dL BUN/CREATININE RATIO SEE NOTE: 6-22 - (calc) SODIUM 135 135-146 - mmol/L POTASSIUM 3.8 3.5-5.3 - mmol/L CHLORIDE 98 98-110 - mmol/L CARBON DIOXIDE 31 20-32 - mmol/L CALCIUM 8.8 8.6-10.4 - mg/dL PHOSPHATE ( PHOSPHORUS) 3.9 2.1-4.3 - mg/d L ALBUMIN 3.9 3.6-5.1 - g/dL EGFR 88 > OR = 60 - mL/min/1.73m2 L ab:CBC (H/H, RBC, INDICES, WBC, PLT) (Order Date - 12/11/2023) (Collection Date & Time - 12/11/2023 12:16 PM) Value Reference Range MPV 10.0 7.5-12.5 - fL WHITE BLOOD CELL COUNT 7.2 3.8-10.8 - Thousa nd/uL RED BLOOD CELL COUNT 3.97 3.80-5.10 - Million /uL HEMOGLOBIN 12.2 11.7-15.5 - g/dL HEMATOCRIT 37.0 35.0-45.0 - % MCV 93.2 80.0-100.0 - fL MCH 30.7 27.0-33.0 - pg PLATELET COUNT 251 140-400 - Thousand/u L MCHC 33.0 32.0-36.0 - g/dL RDW 12.1 11.0-15.0 - % * Examination: P hysical Examination: GENERAL APPEARANCE: i n no acute distress, well developed, well nourished. H EAD: n ormocephalic, atraumatic. E YES: p upils equal, round, reactive to light and accommodation. E ARS: n ormal. O RAL CAVITY: m ucosa moist. N OLGA/THYROID: n olga supple, full range of motion, no cervical lymphadenopathy. S KIN: n o suspicious lesions, warm and dry. H EART: n o murmurs, regular rate and rhythm, S1, S2 normal. L UNGS: c lear to auscultation bilaterally. A BDOMEN: n ormal, bowel sounds present, soft, nontender, nondistended. B ACK: n o costovertebral angle tenderness. E XTREMITIES: n o clubbing, cyanosis, or edema. N EUROLOGIC: N otes nonfocal, motor strength normal upper and lower extremities, sensory exam intact.. P SYCH: a lert, oriented, not distressed.. Assessment: * Assessment: 1. H ypo-osmolality and hyponatremia - E87.1 (Primary), [facility] on presentationUrine studies in keeping with water intoxication/ beer potomaniaShe improved with conservative managementSerum sodium is now up to 138Will discontinue salt tabletsContinue oral LasixEncouraged to continue fluid restrictionOkay to return to work, she works as a manager school,she is alert and oriented in all respects showed the memories are [id number]/14/2022Serum sodium is stable at 133Encouraged to continue fluid restrictionRecheck labs before next visitshe can follow with her PCP in the interimPatient to return if hyponatremia noted before her next visit12/13/2023Serum sodium remains in normal rangePatient has retired and does not drive scope was anymoreBlood pressure is also controlledRecheck labs in a year's time 2 . H ypertensive chronic kidney disease with stage 1 through stage 4 chronic kidney disease, or unspecified chronic kidney disease - I12.9, blood pressure is controlled, Current regimen is appropriateShe reports dizziness with amlodipine which was discontinuedCurrently taking hydralazine without sncwrd0312/13/2023She is back on amlodipine blood pressure is controlledContinue to monitor regimen Plan: * Treatment: * Procedure Codes: * Follow Up: 1 Year * Images: * Sign off status: Completed true * Provider: Sheldon Cortez MD Date: 0 12/13/2023 Generated for Manisha edmonds/Dorie/Jose Ramon on: 0 08/22/2024 12:41 AM CDT History and Physical Notes * HPI (History [...] follow-up visit She drove herself, parked on [address] and walked across She reports that she [...]
--- OUTSIDE RECORDS SUMMARY | 2024-08-22 00:42 | XMS_ITS | Patient Health Record ---
Author Organization [facility] Address [address] [facility] [address] [place] [address] Care Team Providers Care Sociology Instructor Name Role Phone Aurora ZAYAS, [place] Primary Care Provider Yuki Cortez MD, [facility] Allergies Allergen (clinical drug ingredient) Drug/Non [...] Active Results Component Value Reference Range Notes CBC (H/H, RBC, INDICES, WBC, PLT) Reviewed date:12/13/2023 10:02:25 AM Interpretation: Performing Lab:[facility], [facility], [address], [place], [address] Alejandro Kaba MD Notes/Report: WHITE BLOOD CELL COUNT 7.2 3.8-10.8 Thousand/ uL RED BLOOD CELL COUNT 3.97 3.80-5.10 Million/uL HEMOGLOBIN 12.2 11.7-15.5 g/dL HEMATOCRIT 37.0 35.0-45.0 % MCV 93.2 80.0-100.0 fL MCH 30.7 27.0-33.0 pg MCHC 33.0 32.0-36.0 g/dL RDW 12.1 11.0-15.0 % PLATELET COUNT 251 140-400 Thousand/uL MPV 10.0 7.5-12.5 fL Clinical PDF Report [id number] R-1 Reviewed date:07/02/2024 12:38:45 PM Interpretation: Performing Lab: Notes/Report: Clinical PDF Report [id number] R-1 Reviewed date:07/02/2024 12:38:45 PM Interpretation: Performing Lab: Notes/Report: RENAL FUNCTION PANEL Reviewed date:12/13/2023 10:02:39 AM Interpretation: Performing Lab:[facility], [facility], [address], [place], [place], [phone] Alejandro Kaba MD Notes/Report: GLUCOSE 102 65-99 [...] Problem Chronic kidney disease due to hypertension ([id number]) Hypertensive chronic kidney disease with stage [...] 12/13/2023 Encounters Encounter Location Date Provider Diagnosis [address] [place], [place] [id number] 12/13/2023 Sharad Weberwo Hypo-osmolality and hyponatremia E87.1 and Hypertensive chronic kidney disease with stage 1 through stage 4 chronic kidney disease, or unspecified chronic kidney disease I12.[address] [place], [place] [id number] 12/11/2023 [facility] Hypertensive chronic kidney disease with stage 1 through stage 4 chronic kidney disease, or unspecified chronic kidney disease I12.9 Assessments Encounter Date Diagnosis (ICD Code) Assessment Notes Treatment Notes Treatment Clinical Notes Section Notes 12/13/2023 Hypo-osmolality and hyponatremia (ICD-10 - E87.1) she was admitted with altered mental status in April 2022 to [facility] Serum sodium was 124 on presentation Urine studies in keeping with water intoxication/ beer potomania She improved with conservative management Serum sodium is now up to 138 Will discontinue salt tablets Continue oral Lasix Encouraged to continue fluid restriction Okay to return to work, she works as a preschool aide, she is alert and oriented in all [...] pressure is controlled Continue to monitor regimen 12/11/2023 Hypertensive chronic kidney disease with stage 1 through stage 4 chronic kidney disease, or unspecified chronic kidney disease (ICD-10 - I12.9) Plan Of Treatment Pending Test Test Name Order Date BASIC METABOLIC PANEL 06/12/2022 RENAL FUNCTION PANEL 12/11/2023 Next Appt Details Provider Name:Sharad garcia, 12/10/2024 10:30:00 AM, [address] [place] [address], [address], [phone], Insurance Providers Payer Name Payer Address Payer Phone Subscriber Number Group Number Insured Name Patient Relationship to Insured Coverage Start Date Coverage End Date MEDICARE PART B [address] [address] [place], [place] [id number] Audrey Degroot Self - patient is the insured [facility] [address] [place] [address] [id number] Audrey Degroot Self - patient is the insured Medical (General) History Medical History History ICD Code HTN Vitamin D deficiency Osteopenia Anxiety Carcinoid tumor left lung Surgical History Surgery Date(Month/Year) Endoscopy Bronchoscopy 2020 Left lung lobectomy 2020
--- OUTSIDE RECORDS SUMMARY | 2024-08-22 00:42 | XMS_ITS | Clinical Summary ---
Author Organization [facility] [employer] Address [address] [facility] [place] [address] Care Team Providers Care Survey Rodman Name Role Phone Alek Moon MD Unavailable [phone] Melissa Simon MD Primary Care Provider Source Comments [facility] [employer],non-owned Affiliates and Associated Physician Practices is amultiple site organization consisting of ambulatory clinics and hospital sitesin [place], [place], [place]. This disclosure is being madepursuant to the Care Everywhere program and may not contain all information available regarding this patient. Last updated 18.[facility] [employer] Allergies Active Allergy Reactions Criticality Noted Date [...] document. Alwaysverify current medications with the patient. Multiple Vitamins-International Representative als (PRESERVISION AREDS) Take by mouth once daily Active hydrALAZINE (Apresoline) 50 MG tablet 25 mg in the morning, 25 mg at noon, and 50 mg at bedtime 180 tablet 2 Active Additional Information Patient not taking.Reported on 11/14/2023 acetaminophen (Tylenol) 325 MG tablet Take 2 (two) tablets by mouth every 4 hours as needed Maximum allowable Acetaminophen amount = 4 Grams (4000 mg) / 24 hours. 3 Active Additional Information Patient not taking.Reported on 11/08/2022 famotidine (Pepcid) 20 MG tablet Take 1 (one) tablet by mouth once daily 30 tablet 3 Active furosemide (Lasix) 20 MG tablet Take 1 (one) tablet by mouth once daily 60 tablet 3 Active Additional Information Patient not taking.Reported on 09/22/2022 salt buffered (Thermotabs) tablet Take 2 (two) tablets by mouth 3 times daily 180 tablet 3 Active Additional Information Patient not taking.Reported on 11/14/2023 apixaban (Eliquis) 5 MG tablet Take 1 (one) tablet by mouth 2 times daily 180 tablet 3 4 Active Active Problems Problem Noted Date Diagnosed Date Altered mental status, unspe cified altered mental status type 05/30/2022 Delirium due to another medical condition 2022 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 History of colonic polyps 10/08/2020 Osteopenia 10/08/2020 Prediabetes 10/08/2020 Screening for viral disease 10/08/2020 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 Change in bowel habits 06/09/2020 Overview (10/08/2020): Added automatically from request for surgery [id number] Pulmonary nodule 05/17/2020 Paroxysmal atrial fibrillation 04/13/2020 [...] Snoring 04/13/2020 04/26/2020 Cough 03/26/2019 04/23/2019 Immunizations Immunization Administration Dates Next Due Gardenia Candelario primary [...] Recorded Patient Health Questionnaire-2 Score 0 11/14/2023 Comments No Sex and Gender Information Value Date Recorded Sex Assigned at Not on file Legal 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 [address] [place] [address] [address] [place], [place] [id number] Alek Moon MD [address] [facility] [address] [place] [address] 02/06/2025 9:00 AM CDT Appointment [facility] Imaging Services - CT Scan [address] [facility], [address] [place] [address] 02/06/2025 10:00 AM CDT Office Visit [facility] [address] [facility] [address] [place] [address] Ashly Miller, PACK OUT OPERATOR-SCUBA DIVE TRAINING INSTRUCTOR [address] [place] [address] OPTION 4 (Work) Health Maintenance Due Date Last Done Comments BONE DENSITY TESTING 1940 MEDICARE AWV 12 MONTHS 1940 DTAP/TDAP/TD VACCINES (1 - Tdap) 1960 PNEUMOCOCCAL VACCINE 50+ (1 of 1 - PCV) 10/08/1991 ZOSTER VACCINE (1 of 2) 10/08/1991 Respiratory Syncytial Virus (RSV) Vaccine Pt: or over 60 yrs (1 - 1-dose 75+ series) 2016 COVID-19 VACCINE ( season) 2023 03/09/2021, 07/10/2020, 06/12/2020 DEPRESSION SCREENING 04/30/2024 11/14/2023 INFLUENZA VACCINE (Season Ended) 2024 02/08/2021, 01/06/2020, 02/28/2019, Additional history exists HEPATITIS B VACCINE Aged Out No longe r eligible based on patient's age to complete this topic HIB VACCINE Aged Out No longer eligi ble based on patient's age to complete this topic HPV VACCINE Aged Out No longer eligi ble based on patient's age to complete this topic MENINGOCOCCAL (Group B) VACCINE SHARED DECISION-MAKING Aged Out No longer eligible based on patient's age to complete this topic MENINGOCOCCAL GROUPS A/C/Y/W VACCINE Aged Out No longer eligible based on patient's age to complete this topic Insurance MEDICARE [facility] MEDICARE [facility] Advance Directives * Full Code (Latest Code Status on File) Date Activated Date Inactivated Comments 05/30/2022 3:06 AM 05/31/2022 6:39 PM * Full Code Date Activated Date Inactivated Comments 09/28/2020 1:47 PM 10/02/2020 3:51 PM Care Teams Survey Rodman Relationship Specialty Start Date End Date Melissa Simon MD [address] [facility] [address] [place] [phone] PCP - General Internal Medicine 06/30/22 Alek Moon MD [address] [facility] [address] [place] [address] Cardiovascular Disease 03/26/19
--- OUTSIDE RECORDS SUMMARY | 2024-08-22 00:42 | XMS_ITS ---
Author Organization [facility] Address [address] [place] [address] [place] [phone] Care Team Providers Care Gifts Officer Name Role Phone Aurora ZAYAS, [place] Primary Care Provider Yuki Cortez MD, [place] Unavailable [phone] Results Component Value Reference Range Notes CBC (H/H, RBC, INDICES, WBC, PLT) Reviewed date:12/13/2023 10:02:25 AM Interpretation: Performing Lab:[facility], [facility], [address] [place], [address] KaeLeda Kaba MD Notes/Report: WHITE BLOOD CELL COUNT 7.2 3.8-10.8 Thousand/ uL RED BLOOD CELL COUNT 3.97 3.80-5.10 Million/uL HEMOGLOBIN 12.2 11.7-15.5 g/dL HEMATOCRIT 37.0 35.0-45.0 % MCV 93.2 80.0-100.0 fL MCH 30.7 27.0-33.0 pg MCHC 33.0 32.0-36.0 g/dL RDW 12.1 11.0-15.0 % PLATELET COUNT 251 140-400 Thousand/uL MPV 10.0 7.5-12.5 fL Clinical PDF Report [id number] R-1 Reviewed date:07/02/2024 12:38:45 PM Interpretation: Performing Lab: Notes/Report: REASON FOR VISIT reprint labs Encounters Encounter Location Date Provider Diagnosis [address] [place], [place] [id number] 12/11/2023 Sharad Cortez Hypertensive chronic kidney disease [...] Treatment Pending Test Test Name Order Date RENAL FUNCTION PANEL 12/11/2023 Next Appt Details Provider Name:Sharad Chung Tomas radha, 12/10/2024 10:30:00 AM, [address] [place] [address], [address], [phone], Progress Notes * Audrey DEGROOT ADOB:1940 (83 yo F)Acc No.[id number]:12/11/2023 Patient: Audrey PEREZ :1940 A ge:83 Y S ex:Female Address:[address] [place] [id number] Subjective: * Chief Complaints: * R eprint labs * Medical History: * Surgical History: * Hospitalization/Major Diagno stic Procedure: * Medications: Objective: Assessment: * Assessment: 1. H ypertensive chronic kidney disease with stage 1 through stage 4 chronic kidney disease, or unspecified chronic kidney disease - I12.9 Plan: * Treatment: * Procedure Codes: * true * Date: Generated for Manisha edmonds/Dorie/eTransmitting on: 0 08/22/2024 12:41 AM CDT
[2024-08-22 00:47] VITALS: BP 155/81; PULSE 61; RESP 18; TEMP 36.8; O2SAT 97
--- OUTSIDE RECORDS SUMMARY | 2024-08-22 01:07 | XMS_ITS | Clinical Summary ---
Author Organization [facility] Address [address] [facility] [place] [address] Phone Care Team Providers Care Production Material Handler Name Role Phone Unavailable Primary Care Provider Unavailabl e Allergies No known active allergies Medications amLODIPine (NORVASC) 5 mg tablet 09/26/2017 Active omega-3 fatty acids-fish oil 300-1,000 mg Capsule Take by mouth daily. Active Vit A,C,W-Mpae-Stvgg r (PRESERVISION AREDS) 14,320226-200 canc-ic-rfum Capsule Take by mouth. Active coenzyme Q10 [...] 2023 Insurance MEDICARE PART A AND B [facility]
--- OUTSIDE RECORDS SUMMARY | 2024-08-22 01:07 | XMS_ITS | Clinical Summary ---
Author Organization [facility] Address [address] [facility] [place] [address] Care Team Providers Care Damper Fitter Name Role Phone Alek Moon MD Unavailable [phone] Melissa Simon MD Primary Care Provider [phone] Source Comments [facility],non-owned Affiliates and Associated Physician Practices is amultiple site organization consisting of ambulatory clinics and hospital sitesin [place], [place], [place] and [place]. This disclosure is being madepursuant to the Care Everywhere program and may not contain all information available regarding this patient. Last updated 18.[facility] Allergies Active Allergy Reactions Criticality Noted Date [...] Alwaysverify current medications with the patient. 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 Gender Identity Not on file Sexual Orientation [...] Description 11/19/2024 2:00 PM CDT Office Visit [facility] Heart & Vascular Care [address] [place] [address] [address] [place], [place] [id number] Alek Moon MD [address] [facility] [address] [place] [address] 02/06/2025 9:00 AM CDT Appointment [facility] Imaging Services - CT Scan [address] [facility], [address] [place] [address] 02/06/2025 10:00 AM CDT Office Visit [facility] [address] [facility] [address] [place] [address] Ashly Miller, CHILD CARE GIVER-ELECTRICAL MAINTENANCE MECHANIC [address] [place] [address] OPTION 4 (Work) Health Maintenance Due Date [...] age to complete this topic Insurance MEDICARE [facility] MEDICARE [facility] Advance Directives * Full Code (Latest Code Status on File) Date Activated Date Inactivated Comments 05/30/2022 3:06 AM 05/31/2022 6:39 PM * Full Code Date Activated Date Inactivated Comments 09/28/2020 1:47 PM 10/02/2020 3:51 PM Care Teams Damper Fitter Relationship Specialty Start Date End Date Melissa Simon MD [address] [facility] [address] [place] [phone] PCP - General Internal Medicine 06/30/22 Alek Moon MD [address] [facility] [address] [place] [address] Cardiovascular Disease 03/26/19
--- NOTE | 2024-08-22 01:15 | ED_ITS ---
HPI - General Adult General Chief complaint: Extremity Problem,Nontraumatic Stated complaint: Left ankle swelling Time Seen by Provider: 08/22/24 00:58 History of Present Illness HPI narrative: This is an 83-year-old female presenting with left calf pain. [place] she developed a lot of standing and walking. Today she noticed that her left calf was painful and significantly swollen. Patient is on Eliquis for atrial fibrillation but only takes it once a day. She is not taking anything for pain control. Family is concerned that she has DVT. Related Data Home Medications ?Medication ?Instructions ?Recorded ?Confirmed ?Last Taken ?Type Silvino Jensen 1,000 mg PO DAILY 02/04/20 11/22/21 02/23/20 History Coenzyme Q10 With D3/Mag/Zinc 1 cap/day PO DAILY 02/04/20 11/22/21 02/23/20 History Keratan 250 mg PO DAILY 02/04/20 11/22/21 02/23/20 History Tumeric Curcumin 500 mg PO DAILY 02/04/20 11/22/21 02/23/20 History cholecalciferol (vitamin D3) 25 25 mcg PO DAILY 02/04/20 11/22/21 02/23/20 History mcg (1,000 unit) tablet (Vitamin D3) cinnamon bark 500 mg capsule 2,000 mg PO DAILY 02/04/20 11/22/21 02/23/20 History (Cinnamon) cranberry extract-vitamin C 250 500 cap PO DAILY 02/04/20 11/22/21 02/23/20 History mg-60 mg capsule garlic 100 mg tablet 100 mg PO DAILY 02/04/20 11/22/21 02/23/20 History mayo root 325 mg-pyridoxine HCl 550 cap PO DAILY 02/04/20 11/22/21 02/23/20 History (vitamin B6) 25 mg capsule ginkgo biloba 120 mg tablet 150 mg PO DAILY 02/04/20 11/22/21 02/23/20 History milk thistle 175 mg tablet 175 mg PO DAILY 02/04/20 11/22/21 02/23/20 History dcrsgscqbesm-zccc-wthnd acid 200 1 tablet PO DAILY 02/04/20 11/22/21 02/23/20 History mcg-lutein 137.5 mcg chewable tablet (Adult Multivitamin (w-lutein)) psyllium husk 0.52 gram capsule 1,000 g PO DAILY 02/04/20 11/22/21 02/23/20 History (Daily Fiber) vitamin B complex (B-Complex 1 tablet PO DAILY 02/04/20 11/22/21 02/23/20 Hi story tablet) Allergies Allergy/AdvReac Type Severity Reaction Status Date / Time No Known Allergies Allergy Verified 08/22/24 00:41 [facility] Past Medical History Medical History Chronic hyponatremia HTN (hypertension) PAF (paroxysmal atrial fibrillation) Surgical History Surgical History No significant past surgical history Family History Family History Mother Heart disease Cerebrovascular accident Father Heart disease Cancer Sibling Heart disease Social History Social History Smoking status: Never smoker Alcohol intake: current Drinks per week: 6 Substance use: never Substance use type: does not use Gender identity (if verbalized by the patient): Female Sexual Orientation (if Verbalized by the Patient): Straight or Heterosexual Spiritual care concerns: No Exam Narrative: APPEARANCE: No apparent distress. Head: atraumatic. EYES: EOMI, NOSE: Atraumatic NECK: Trachea midline RESPIRATORY: No increased rate of breathing clear to auscultation CARDIOVASCULAR: RRR, left calf greater in diameter than the right calf, tenderness along lateral aspect of the calf. Cap refill is less than 2 seconds. TPN PT pulses are strong. ABDOMINAL: Non-distended MUSCULOSKELETAl: No obvious deformities NEURO: Alert. Moving 4/4 extremities SKIN:: Warm, dry. Normal color PSYCHIATRIC: Normal affect Course Vital Signs Vital signs: Vital Signs Temperature 98.2 F 08/22/24 00:47 Pulse Rate 61 08/22/24 00:47 Respiratory Rate 18 08/22/24 00:47 Blood Pressure 155/81 H 08/22/24 00:47 Pulse Oximetry 97 08/22/24 00:47 Oxygen Delivery Room Air 08/22/24 00:47 Temperature 98.2 F 08/22/24 00:47 Pulse Rate 61 08/22/24 00:47 Respiratory Rate 18 08/22/24 00:47 Blood Pressure 155/81 H 08/22/24 00:47 Pulse Oximetry 97 08/22/24 00:47 Oxygen Delivery Room Air 08/22/24 00:47 Medical Decision Making MDM Narrative Medical decision making narrative: -Course: 83-year-old female presenting with calf pain. He is concerned about a DVT. If she does have a DVT it is not a treatment failure of Eliquis since she has been taking inappropriately. I have stressed the importance of her taking Eliquis twice daily. She has verbalized understanding will take it at the correct way from now on. She has taken her nighttime dose of Eliquis and will take the morning dose tomorrow when she wakes up. She has been scheduled for a venous ultrasound in the morning. -DDX includes but is not limited to: Muscle strain, DVT Vital Signs Vital Signs: Vital Signs Temperature 98.2 F 08/22/24 00:47 Pulse Rate 61 08/22/24 00:47 Respiratory Rate 18 08/22/24 00:47 Blood Pressure 155/81 H 08/22/24 00:47 Pulse Oximetry 97 08/22/24 00:47 Oxygen Delivery Room Air 08/22/24 00:47 Temperature 98.2 F 08/22/24 00:47 Pulse Rate 61 08/22/24 00:47 Respiratory Rate 18 08/22/24 00:47 Blood Pressure 155/81 H 08/22/24 00:47 Pulse Oximetry 97 08/22/24 00:47 Oxygen Delivery Room Air 08/22/24 00:47 Discharge Plan Discharge Clinical Impression: Calf pain Patient Disposition: Home Condition: Stable Instructions: Antibiotic Form, Leg Pain (ED) Additional Instructions: You were seen in the emergency department for calf pain and swelling. Please come to the hospital for a DVT scan tomorrow morning at 7:00 a.m.. Please take her Eliquis as instructed. If you develop any new symptoms such as chest pain difficulty breathing please return to ED immediately for re-evaluation. Patient Language: Citizen Of [place] Prescriptions: No Action garlic 100 mg Tablet 100 mg PO DAILY milk thistle 175 mg Tablet 175 mg PO DAILY vitamin B complex [B-Complex] Tablet 1 tablet PO DAILY ginkgo biloba 120 mg Tablet 150 mg PO DAILY psyllium husk [Daily Fiber] 0.52 gram Capsule 1,000 g PO DAILY cinnamon bark [Cinnamon] 500 mg Capsule 2,000 mg PO DAILY cholecalciferol (vitamin D3) [Vitamin D3] 25 mcg (1,000 unit) Tablet 25 mcg PO DAILY cranberry extract-vitamin C 250-60 mg Capsule 500 cap PO DAILY sgfclelw-pca-pwegj acid-lutein [Adult Multivitamin (w-lutein)] 200-137.5 mcg Tablet,Chewable 1 tablet PO DAILY mayo root-pyridoxine HCl(B6) 325-25 mg Capsule 550 cap PO DAILY Silvino Jensen 1,000 mg PO DAILY Keratan 250 mg PO DAILY Tumeric Curcumin 500 mg PO DAILY Coenzyme Q10 With D3/Mag/Zinc 1 cap/day PO DAILY hydralazine 25 mg tablet 25 mg PO TID Qty: 90 3RF Eliquis 5 mg tablet 5 mg PO BID Qty: 180 3RF Follow-up/Referrals: PHYSICIAN NOT ON STAFF,NONSTAFF [Primary Care Provider] -
== END 2024-08-22 01:26 | disposition home or self-care (01) ==
PROVIDERS: Emergency Provider Emergency Medicine
DX: M79.662 Pain in left lower leg (principal); I48.0 Paroxysmal atrial fibrillation; Z79.01 Long term (current) use of anticoagulants; I10 Essential (primary) hypertension
CPT/HCPCS: 99281

== ENCOUNTER 2024-08-22 07:56 | Outpatient (CLI) | payer MEDICARE, BC, SELFPAY ==
--- NOTE | ~2024-08-22 | US_ITS ---
EXAMINATION: US venous doppler [facility] DATE: 08/22/2024 08:53 INDICATION: Pain TECHNIQUE: Grayscale ultrasound images without and with compression and Doppler ultrasound images of the bilateral lower extremity veins were obtained. COMPARISON: None. FINDINGS: The visualized portions of right common femoral vein, profunda (deep) femoral vein, femoral vein, pop liteal vein, peroneal veins, posterior tibial veins, and greater saphenous vein outflow are patent. The visualized portions of left common femoral vein, profunda femoral vein, femoral vein, popliteal v ein, peroneal veins, posterior tibial veins, and greater saphenous vein outflow are patent. IMPRESSION: 1. No deep venous thrombosis. Reviewed, dictated and finalized at location A.
--- OUTSIDE RECORDS SUMMARY | 2024-08-22 08:09 | XMS_ITS | Clinical Summary ---
Author Organization [facility] Address [address] [facility] [place] [address] Phone Care Team Providers Care Bicycle Repairer Name Role Phone Unavailable Primary Care Provider Unavailabl e Allergies No known active allergies Medications amLODIPine (NORVASC) 5 mg tablet 09/26/2017 Active omega-3 fatty acids-fish oil 300-1,000 mg Capsule Take by mouth daily. Active Vit A,C,L-Uqqu-Cgmbs r (PRESERVISION AREDS) 14,320226-200 aznv-zl-oehy Capsule Take by mouth. Active coenzyme Q10 [...] 2023 Insurance MEDICARE PART A AND B [facility]
--- OUTSIDE RECORDS SUMMARY | 2024-08-22 08:09 | XMS_ITS | Clinical Summary ---
Author Organization [facility] Address [address] [facility] [place] [address] Care Team Providers Care Slitter And Cutter Operator Name Role Phone Alek Moon MD Unavailable [phone] Melissa Simon MD Primary Care Provider Source Comments [facility],non-owned Affiliates and Associated Physician Practices is amultiple site organization consisting of ambulatory clinics and hospital sitesin [place], [place], [place] and [place]. This disclosure is being madepursuant to the Care Everywhere program and may not contain all information available regarding this patient. Last updated 18.[facility] Allergies Active Allergy Reactions Criticality Noted Date [...] Alwaysverify current medications with the patient. 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 Gender Identity Not on file Sexual Orientation [...] Description 11/19/2024 2:00 PM CDT Office Visit [facility] Heart & Vascular Care [address] [place] [address] [address] [place], [place] [phone] Alek Moon MD [address] [facility] [address] [place] [address] 02/06/2025 9:00 AM CDT Appointment [facility] Services - CT Scan [address] [facility], [address] [place] [address] 02/06/2025 10:00 AM CDT Office Visit [facility] [address] [facility] [address] [place] [address] Ashly Miller, CUTTING MACHINE OPERATOR-ELDER COUNSELOR [address] [place] [address] OPTION 4 (Work) Health Maintenance Due Date [...] complete this topic Insurance MEDICARE [facility] MEDICARE [facility] Advance Directives * Full Code (Latest Code Status on File) Date Activated Date Inactivated Comments 05/30/2022 3:06 AM 05/31/2022 6:39 PM * Full Code Date Activated Date Inactivated Comments 09/28/2020 1:47 PM 10/02/2020 3:51 PM Care Teams Slitter And Cutter Operator Relationship Specialty Start Date End Date Melissa Simon MD [address] [facility] [address] [place] [phone] PCP - General Internal Medicine 06/30/22 Alek Moon MD [address] [facility] [address] [place] [address] Cardiovascular Disease 03/26/19
== END 2024-08-22 07:57 | disposition home or self-care (01) ==
PROVIDERS: PCP Internal Medicine; Visit Provider Emergency Medicine
DX: M79.661 Pain in right lower leg (principal); M79.662 Pain in left lower leg
CPT/HCPCS: 93970

== ENCOUNTER 2025-04-06 20:01 | Emergency (ER) | payer MEDICARE, BC, SELFPAY ==
--- NOTE | ~2025-04-06 | CT_ITS ---
EXAMINATION: CTA chest abdomen pelvis DATE: 04/07/2025 02:01 INDICATION: Chest and abdominal pain. TECHNIQUE: Computed tomographic angiography (CTA) of the chest, abdomen, and pelvis was performed with 100 mL Omnipaque-350 intravenous contrast. Automated exposure control and iterative reconstruction technique were employed. The dose- length product was 416.02 mGy-cm. Maximum intensity projection 3D-r econstructions of the aorta and other arteries were constructed by the technologist on a separate workstation. COMPARISON: CT abdomen and pelvis 05/21/2020, chest CT 02/24/2020 FINDINGS: CHEST CTA: The lungs demonstrate mild atelectasis. There is mild scarring in paraspinal right lower lobe. There are a few chronic nodules in left upper lobe measuring up to 7 mm, likely benign . There are changes of left lower lobectomy. No pleural effusion. The heart size is normal. There are coronary artery erick cifications. No pericardial effusion. There is mild aortic atherosclerosis. There is no pulmonary embolus. There is a small sliding hiatal hernia. There is severe thoracic spondylosis. There is severe cervical spondylosis. ABDOMEN AND PELVIS CTA: The liver is normal. There is a gallstone in the gallbladder, which is normal in size. The spleen, pancreas, adrenal glands, and kidneys are normal. There are uterine fibroids measuring up to 5.5 cm. There is diverticulosis of the colon without evidence of diverticulitis. There are no dilated loops of bowel. The appendix is not visualized. There is no significant stenosis of celiac axis, superior mesenteric artery, the renal arteries, or inferior mesenteric artery. There is severe lumbar spondylosis. IMPRESSION: 1. Mild aortic atherosclerosis. No aneurysm or dissection. 2. No pulmonary embolus. 3. Small sliding hiatal hernia. 4. Uterine fibroids. Reviewed, dictated and finalized at location E. ROUTE DRIVER
--- NOTE | ~2025-04-06 | XR_ITS ---
EXAMINATION: XR chest 2V DATE: 04/06/2025 21:58 INDICATION: Chest pain TECHNIQUE: Frontal and lateral views of the chest were obtained. COMPARISON: 02/23/2020 FINDINGS: No consolidation effusion or definite lymphadenopathy. Scarring and/or atelectatic changes anterior left lung base on the lateral view. No pneumothorax or subphrenic free air seen. Bones and upper abdomen are unremarkable. IMPRESSION: 1. No focal acute process. Reviewed, dictated and finalized at location A. L DEALER IMPRESSION: 1. No focal acute process.
[2025-04-06 20:17] VITALS: BP 205/89; PULSE 77; RESP 19; TEMP 36.3; O2SAT 99
--- NOTE | 2025-04-06 20:25 | ECG_ITS ---
Test Date: 2025-04-06 20:30:28 Measurements Intervals [place] Rate: 64 P: 35 SD: 165 QRS: -26 QRSD: 109 T: 10 QT: 386 QTc: 398 Interpretive Statements SINUS RHYTHM VOLTAGE CRITERIA FOR LVH ANTEROSEPTAL INFARCT, AGE INDETERMINATE BORDERLINE T WAVE ABNORMALITY- INFERIOR LEADS BASELINE ARTIFACT- I, II, AVR, AVL, AVF, V1 ABNORMAL ECG No previous ECG available for comparison Electronically Signed On 04-07-2025 06:34:58 RHEOSTAT ASSEMBLER by Tee Crowder D.O.
[2025-04-06 21:54] LABS: Hematocrit 36.8 % (37.0-47.0); Hemoglobin 12.8 g/dL (12.0-15.0); Immature Granulocyte Percent A 0.1 % (0-0.5); Lymphocytes Absolute Auto 2.53 K/mm3 (0.9-3.2); Mean Corpuscular HGB Conc 34.8 g/dl (32-36); Mean Corpuscular Hemoglobin 31.0 pg (26-34); Mean Corpuscular Volume 89.1 fl (80-100); Nucleated Red Blood Cells Absolute Auto 0.000 K/mm3 (0.0-0.012); Nucleated Red Blood Cells Perc 0.0 % (0.0-0.2); Platelet Count Result 291 k/mm3 (150-375); Red Blood Count 4.13 M/mm3 (4.2-5.4); White Blood Count 6.8 K/mm3 (4.5-10.0)
[2025-04-06 22:08] LABS: Alanine Aminotransferase 17 U/L (6-35); Albumin Level 4.4 g/dL (3.5-5.1); Alkaline Phosphatase 73 U/L (38-126); Anion Gap 7 mmol/L (4-12); Aspartate Amino Transferase 27 U/L (14-36); Bilirubin,Total 0.5 mg/dL (0.2-1.3); Blood Urea Nitrogen 12 mg/dL (7-17); Calcium 9.6 mg/dL (8.4-10.2); Carbon Dioxide 26 mmol/L (22-30); Chloride 95 mmol/L (98-107); Estimated CRCL calculation 48 ml/min; Estimated Glomerular Filt Rate > 60; Glucose 105 mg/dL (65-110); Lipase 43 U/L (23-300); Potassium 3.8 mmol/L (3.4-5.0); Sodium 128 mmol/L (137-145); Total Protein 8.3 g/dL (6.3-8.2)
[2025-04-06 22:13] VITALS: BP 179/81; PULSE 53; O2SAT 99
[2025-04-06 22:17] LABS: INR 0.9; Prothrombin Time 12.4 Seconds (11.1-14.7)
[2025-04-06 22:18] LABS: Partial Thromboplastin Time 33.5 Seconds (22.3-36.8); Troponin I < 0.012 ng/mL (0.000-0.034)
--- OUTSIDE RECORDS SUMMARY | 2025-04-07 00:39 | XMS_ITS | Encounter Summary ---
Author Organization [facility] Address [address] [facility] [place] [address] Care Team Providers Care Tire Bagger Name Role Phone Alek Moon MD Unavailable [phone] Melissa Simon MD Primary Care Provider [phone] Encounter Details Date Type Department Care Team (Late st Contact Info) Description 02/06/2025 Results Follow-Up [facility] Heart & Vascular Care [address] [address] Ashly Miller, TABLE HAND-SALES REPRESENTATIVE RAW FIBERS [address] [place] [id number] OPTION 4 (Work) Social History Tobacco Use Types Packs/Day Years [...] on file 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 Answer Date of Assessment Author No 09/28/2020 1:30 PM CDT Addison Christiansen * Is person blind or have serious difficulty seeing? Answer Date of Assessment Author No 09/28/2020 1:30 PM CDT Addison Christiansen * Does person have serious difficulty walking/climbing stairs? Answer Date of Assessment Author No 09/28/2020 1:30 PM CDT Addison Christiansen * Does person have difficulty dressing/bathing? Answer Date of Assessment Author No 09/28/2020 1:30 PM CDT Addison Christiansen * Does person have difficulty doing errands alone? Answer Date of Assessment Author No 09/28/2020 1:30 PM CDT Addison Christiansen documented as of this encounter Mental Status * Does person have difficulty concentrating/remembering/making decisions? Answer Entry Date Author No 09/28/2020 1:30 PM CDT Addison Christiansen documented in this encounter Plan of Treatment Upcoming Encounters Date Type Department Care Team (Late st Contact Info) Description 11/24/2025 1:00 PM CDT Office Visit [facility] Heart & Vascular Care [address] [place] [address] [address] [place] [address] Alek Moon MD [address] [place] [address] [facility] [address] [place] [address] 02/05/2026 10:30 AM CDT Appointment [facility] Imaging Services - CT Scan [facility], [address] [place] [address] Ashly Miller, TABLE HAND-SALES REPRESENTATIVE RAW FIBERS [address] [place] [address] [address] [place] [address] OPTION 4 (Work) 02/05/2026 11:00 AM CDT Office Visit [facility] Heart & Vascular Care [address] [place] [address] [address] [place] [address] Ashly Miller, TABLE HAND-SALES REPRESENTATIVE RAW FIBERS [address] [place] [address] [address] [place] [address] OPTION 4 (Work) documented as of this encounter Visit Diagnoses Not on filedocumented in this encounter Care Teams Tire Bagger Relationship Specialty Start Date End Date Melissa Simon MD [facility] [facility] [address] [place] [phone] PCP - General Internal Medicine 06/30/22 Alek Moon MD [facility] [facility] [address] [place] [address] Cardiovascular Disease 03/26/19 documented as of this encounter
--- OUTSIDE RECORDS SUMMARY | 2025-04-07 00:39 | XMS_ITS | Clinical Summary ---
Author Organization [facility] Address [address] [place] [address] Phone Care Team Providers Care Parachute Supervisor Name Role Phone Unavailable Primary Care Provider Unavailabl e Allergies No known active allergies Medications amLODIPine (NORVASC) 5 mg tablet 09/26/2017 Active omega-3 fatty acids-fish oil 300-1,000 mg Capsule Take by mouth daily. Active Vit A,C,T-Fxbs-Oljtd r (PRESERVISION AREDS) 14,320226-200 czim-he-dmzi Capsule Take by mouth. Active coenzyme Q10 [...] 9:33 AM CDT Height 160 cm (5' 3) 12/05/2017 9:33 AM CDT Body Mass Index [...] SCREENING 08/29/2023 08/28/2018, 2014 INFLUENZA VACCINE (#1) 2024 Insurance MEDICARE PART A AND B [facility]
--- OUTSIDE RECORDS SUMMARY | 2025-04-07 00:39 | XMS_ITS | Clinical Summary ---
Author Organization [facility] Address [facility] [place] [address] Care Team Providers Care Picking Supervisor Name Role Phone Melissa Simon MD Primary Care Provider Encounters Date Type Department Care Team Description 03/11/2025 12:21 PM COVER CUTTER MACHINE - 03/11/2025 11:59 PM COVER CUTTER MACHINE Hospital Encounter [facility] [address] [place] [address] Kelly Tejada MD Discharge Disposition: Home or Self Care (Routine Discharge) 03/11/2025 Travel from Last 3 Months Social History Tobacco Use Types Packs/Day Years Used Date Smoking Tobacco: Never Assessed Comments Unknown Sex and Gender Information Value Date Recorded Sex Assigned at Female 03/05/2025 2:41 PM COVER CUTTER MACHINE Legal Sex Female 2:39 PM COVER CUTTER MACHINE Gender Identity Not on file Sexual Orientation Not on file Plan of Treatment Health Maintenance Due Date Last Done Comments Annual Medicare Wellness Visit 2006 Dexa Scan (General) 2006 Pneumococcal Vaccine: 50+ Years (2 of 2 - PCV20 or PCV21) 07/13/2015 07/12/2014 COVID-19 Vaccine ( season) 2025 01/23/2025, 01/09/2024, 01/20/2023, Additional history exists DTaP, Tdap and Td Vaccines (4 - Td or Tdap) 01/29/2035 01/29/2025, 01/22/2024, 09/27/2021 Zoster Vaccines Completed 07/10/2018, 05/16/2018 RSV Immunization or 60+ Years Completed 01/22/2024 Influenza Adult Completed 01/23/2025, 12/29, 01/20/2023, Additional history exists Hepatitis A Vaccines Aged Out No long er eligible based on patient's age to complete this topic Meningococcal B Vaccine Aged Out No l onger eligible based on patient's age to complete this topic Meningococcal Vaccine Aged Out No gurvinder veena eligible based on patient's age to complete this topic RSV Immunizations Under 20 Months Aged Out No longer eligible based on patient's age to complete this topic Procedures Procedure Name Priority Date/Time Associated Diagnosis Comments MG SCREENING W CORIN GRETCHEN DIGI Routine 03/11/2025 12:55 PM COVER CUTTER MACHINE Encounter for screening mammogram for malignant neoplasm of breast from Last 3 Months Results * MG SCREENING W CORIN GRETCHEN DIGI (03/11/2025 12:55 PM COVER CUTTER MACHINE) Anatomical Region Laterality Modality Breast Bilateral Mammography 03/12/2025 2:16 PM COVER CUTTER MACHINE Impressions 03/12/2025 2:17 PM COVER CUTTER MACHINE ===== IMPRESSION: ===== 1. Stable mammographic appearance with no new findings to suggest malignancy in either breast. Assessment: ACR BI-RADS 2 - BENIGN FINDING(S) Recommendation: 1:Routine Screening Bilateral Comments: Ordered By: KELLY TEJADA Interpreted By: Cuco Villalba MD, 03/12/2025 2:16 PM Narrative 03/12/2025 2:17 PM COVER CUTTER MACHINE [address] [id number] Examination: Digital bilateral screening mammogram with 3D Tomosynthesis Exam Date/Time: 03/11/2025 12:22 PM Reason For Exam: No prior breast procedures. No personal or family history of breast cancer. No current complaints. History of skin biopsy near the left breast. Comparison: Mammograms from 05/30/2023 01/26/2022 01/26/2021 Technique: Digital screening mammography of both breasts was performed in addition to 3-D Tomosynthesis technique. This study was read with the assistance of a computer-aided detection system. Tissue density: There are scattered areas of fibroglandular density. Findings: Benign axillary lymph nodes. Benign vascular and punctate calcifications. No suspicious interval change in parenchymal pattern from the prior studies. There is no new focal asymmetry, dominant mass lesion, area of skin thickening, or cluster of suspicious appearing calcifications in either breast to suggest malignancy. us Kelly Tejada MD MAMMO Final Res ult from Last 3 Months Insurance MEDICARE [facility] Care Teams Picking Supervisor Relationship Specialty Start Date End Date Melissa Simon MD [address] [place] [id number] PCP - General INTERNAL MEDICINE 03/05/25
--- OUTSIDE RECORDS SUMMARY | 2025-04-07 00:39 | XMS_ITS | Clinical Summary ---
Author Organization [facility] [employer] Address [address] [place] [address] Care Team Providers Care Sales Associate Cashier Name Role Phone Alek Moon MD Unavailable [phone] Melissa Simon MD Primary Care Provider [phone] Source Comments [facility] [employer],non-owned Affiliates and Associated Physician Practices is amultiple site organization consisting of ambulatory clinics and hospital sitesin [place], [place], [place] and [place]. This disclosure is being madepursuant to the Care Everywhere program and may not contain all information available regarding this patient. Last updated 18.[facility] [employer] Allergies Active Allergy Reactions Criticality Noted Date [...] Alwaysverify current medications with the patient. 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 History of colonic polyps 10/08/2020 Osteopenia 10/08/2020 Prediabetes 10/08/2020 Screening for viral disease 10/08/2020 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 Change in bowel habits 06/09/2020 Overview (10/08/2020): Added automatically from request for surgery [id number] Pulmonary nodule 05/17/2020 Paroxysmal atrial fibrillation 04/13/2020 [...] 11/05/2020 Snoring 04/13/2020 04/26/2020 Cough 03/26/2019 04/23/2019 Encounters Date Type Department Care Team Description 02/06/2025 10:00 AM CDT Office Visit [facility] Health Heart & Vascular Care [address] [place] [address] Ashly Miller, INFANT TEACHER-BOX SORTER 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) 02/06/2025 8:35 AM CDT - 02/06/2025 11:59 PM CDT Hospital Encounter [facility] Health Imaging Services - CT Scan [address], [address] [place] [address] Ashly Miller APRN-CNP Discharge Disposition: Home or Self Care 02/06/2025 Results Follow-Up [facility] V[facility] [address] [facility] [address] [place] [address] Ashly Miller, TRACY from Last 3 Months Immunizations Immunization Administration Dates Next Due Covid Moderna primary monovalent 12+ yr 0.5mL ,06/12/2020 Social [...] on file Legal 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 Gender Identity Not on file Sexual Orientation Not on file Last Filed Vital Signs Vital Sign Reading Time Taken Comments Blood Pressure 135/82 02/06/2025 12:19 PM CDT Pulse 59 02/06/2025 12:19 PM CDT Temperature 36.7 C (98 F) 11/20/2024 1:24 PM CDT Respiratory Rate 16 02/08/2024 9:47 AM CDT Oxygen Saturation 100% 02/06/2025 12:19 PM CDT Inhaled Oxygen Concentration - - Weight 63 kg (139 lb) 02/06/2025 12:19 PM CDT Height 154.9 cm (5' 1) 02/08/2024 9:47 AM CDT Body Mass Index 26.26 02/08/2024 9:47 AM CDT Plan of Treatment Upcoming Encounters Date Type Department Care Team (Late st Contact Info) Description 11/24/2025 1:00 PM CDT Office Visit [facility] [address] [place] [address] Alek Moon MD [facility] [address] [place] [address] 02/05/2026 10:30 AM CDT Appointment [facility] Imaging Services - CT Scan [address], [address] [place] [address] Ashly Miller, INFANT TEACHER-BOX SORTER [address] [facility] [address] [place] [address] [employer] 4 (Work) 02/05/2026 11:00 AM CDT Office Visit [facility] [address] [facility] [place] [address] Ashly Miller, INFANT TEACHER-BOX SORTER [address] [facility] [address] [place] [address] [employer] (Work) Health Maintenance Due Date Last Done Comments BONE DENSITY TESTING 1940 MEDICARE AWV 12 MONTHS 1940 DTAP/TDAP/TD VACCINES (1 - Tdap) 1960 PNEUMOCOCCAL VACCINE 50+ (1 of 1 - PCV) 10/08/1991 ZOSTER VACCINE (1 of 2) 10/08/1991 Respiratory Syncytial Virus (RSV) Vaccine Pt: or over 60 yrs (1 - 1-dose 75+ series) 2016 DEPRESSION SCREENING 04/30/2024 11/14/2023 COVID-19 VACCINE ( season) 2024 03/09/2021, 07/10/2020, 06/12/2020 INFLUENZA VACCINE Completed 01/23/2025, , 02/08/2021, Additional history exists HEPATITIS B VACCINE Aged [...] Procedure Name Priority Date/Time Associated Diagnosis Comments CT CHEST W CONTRAST Routine 02/06/2025 9 :06 AM CDT Carcinoid tumor of left lung (HCC) ISTAT CREATININE Routine 02/06/2025 8:50 AM CDT from Last 3 Months Results * CT Chest W Contrast (02/06/2025 9:06 AM CDT) Anatomical Region Laterality Modality Chest Computed Tomogra phy 02/06/2025 9:54 AM CDT Impressions 02/06/2025 2:02 PM CDT Impression: No appreciable interval change. > Dictated by Ramone Haas MD, MD (logistics vice president). > Dictated by Interface Engineer I, Melissa Ariza MD have personally reviewed and interpreted this examination/study. > Interpreting Provider: Melissa Ariza MD on 02/06/2025 2:02 PM Narrative 02/06/2025 2:02 PM CDT PROCEDURE: CT CHEST W CONTRAST, DATE/TIME OF EXAM: 02/06/2025 9:07 AM, LOCATION [facility] INDICATION: D3A.090: Carcinoid tumor of left lung (HCC) COMPARISON: CT chest from 02/05/2024. TECHNIQUE: CT of the chest was performed following the uneventful administration of 100 mL of Isovue 370 intravenous contrast according to standard protocol. Findings: Lower Neck and Axillae: Normal. Lungs: Infiltrates, scarring and nodular opacities in bilateral lungs are stable compared to prior exam. No new lung mass. No pleural effusion or pneumothorax. Heart and Pericardium: The cardiac chambers are stable in size. No pericardial fluid or thickening is present. The coronary arteries are atherosclerotic. Mediastinum and Kylie: No enlarged lymph nodes are present. Multiple calcified mediastinal and hilar lymph nodes. Thoracic Vasculature: The aorta and its branch vessels are atherosclerotic. Replaced right hepatic artery. Bones and Chest Wall: Bone windows demonstrate no suspicious lytic or blastic lesions. The visible osseous structures are intact. Upper Abdomen: Cholelithiasis without evidence of acute cholecystitis. Calcified retroperitoneal lymph nodes. Procedure Note Melissa Ariza MD - 02/06/2025 PROCEDURE: CT CHEST W CONTRAST, DATE/TIME OF EXAM: 02/06/2025 9:07 AM, LOCATION [facility] INDICATION: D3A.090: Carcinoid tumor of left lung (HCC) COMPARISON: CT chest from 02/05/2024. TECHNIQUE: CT of the chest was performed following the uneventful administration of 100 mL of Isovue 370 intravenous contrast according to standard protocol. Findings: Lower Neck and Axillae: Normal. Lungs: Infiltrates, scarring and nodular opacities in bilateral lungs arestable compared to prior exam. No new lung mass. No pleural effusion or pneumothorax. Heart and Pericardium: The cardiac chambers are stable in size. No pericardial fluid orthickening is present. The coronary arteries are atherosclerotic. Mediastinum and Kylie: No enlarged lymph nodes are present. Multiple calcified mediastinal and hilar lymph nodes. Thoracic Vasculature: The aorta and its branch vessels are atherosclerotic. Replaced right hepatic artery. Bones and Chest Wall: Bone windows demonstrate no suspicious lytic or blastic lesions. The visible osseous structures are intact. Upper Abdomen: Cholelithiasis without evidence of acute cholecystitis. Calcified retroperitoneal lymph nodes. Impression: No appreciable interval change. > Dictated by Ramone Haas MD, MD (logistics vice president). > Dictated by Interface Engineer I, Melissa Ariza MD have personally reviewed and interpreted this examination/study. > Interpreting Provider: Melissa Ariza MD on 02/06/2025 2:02 PM us Ashly Miller INFANT TEACHER-BOX SORTER CT ORDERABLES Final Res ult * (ABNORMAL) ISTAT CREATININE (02/06/2025 8:50 AM CDT) Creatinine POCT 0.80 0.60 - 1.30 mg/dL 02/06/2025 8:51 AM CDT [facility] eGFR by CKD-EPI 73(L) >90 mL/min/1.7 3 m2 02/06/2025 8:51 AM CDT [facility] Sample iSTAT PETER 02/06/2025 8:51 AM CDT [facility] Blood BLOOD SPECIMEN / Unknown 02/06/2025 8:50 AM CDT 02/06/2025 8:51 AM CDT Ashly Miller INFANT TEACHER-BOX SORTER LAB - POINT OF CARE ORDER FREDDY Final Result [facility] [address] [place] [address] from Last 3 Months Insurance MEDICARE [facility] MEDICARE [employer] Advance Directives * Full Code (Latest Code Status on File) Date Activated Date Inactivated Comments 05/30/2022 3:06 AM 05/31/2022 6:39 PM * Full Code Date Activated Date Inactivated Comments 09/28/2020 1:47 PM 10/02/2020 3:51 PM Care Teams Sales Associate Cashier Relationship Specialty Start Date End Date Melissa Simon MD [facility] [address] [address] [place] [phone] PCP - General Internal Medicine 06/30/22 Alek Moon MD [facility] [address] [place] [address] Cardiovascular Disease 03/26/19
--- NOTE | 2025-04-07 00:49 | ED.GENADULT ---
HPI - General Adult General Chief complaint: Chest Pain Stated complaint: CP Time Seen by Provider: 04/07/25 00:26 History of Present Illness HPI narrative: 84-year-old female presents to the emergency department for evaluation for multiple complaints including abdominal distension and bloating. Patient states nothing seems to make the pain better or worse. Patient states he did have some decreased stools but had been taking medications to help with constipation. At time of evaluation patient is resting comfortably. Patient denied any chest pain at time of evaluation. Related Data Home Medications ?Medication ?Instructions ?Recorded ?Confirmed ?Last Taken ?Type Silvino Jensen 1,000 mg PO DAILY 02/04/20 01/30/25 02/23/20 History Coenzyme Q10 With D3/Mag/Zinc 1 cap/day PO DAILY 02/04/20 01/30/25 02/23/20 History Keratan 250 mg PO DAILY 02/04/20 01/30/25 02/23/20 History Tumeric Curcumin 500 mg PO DAILY 02/04/20 01/30/25 02/23/20 History cholecalciferol (vitamin D3) 25 25 mcg PO DAILY 02/04/20 01/30/25 02/23/20 History mcg (1,000 unit) tablet (Vitamin D3) cinnamon bark 500 mg capsule 2,000 mg PO DAILY 02/04/20 01/30/25 02/23/20 History (Cinnamon) cranberry extract-vitamin C 250 500 cap PO DAILY 02/04/20 01/30/25 02/23/20 History mg-60 mg capsule garlic 100 mg tablet 100 mg PO DAILY 02/04/20 01/30/25 02/23/20 History mayo root 325 mg-pyridoxine HCl 550 cap PO DAILY 02/04/20 01/30/25 02/23/20 History (vitamin B6) 25 mg capsule ginkgo biloba 120 mg tablet 150 mg PO DAILY 02/04/20 01/30/25 02/23/20 History milk thistle 175 mg tablet 175 mg PO DAILY 02/04/20 01/30/25 02/23/20 History prvziojxwzxa-tlwz-bhmsz acid 200 1 tablet PO DAILY 02/04/20 01/30/25 02/23/20 History mcg-lutein 137.5 mcg chewable tablet (Adult Multivitamin (w-lutein)) psyllium husk 0.52 gram capsule 1,000 g PO DAILY 02/04/20 01/30/25 02/23/20 History (Daily Fiber) vitamin B complex (B-Complex 1 tablet PO DAILY 02/04/20 01/30/25 02/23/20 History tablet) Allergies Allergy/AdvReac Type Severity Reaction Status Date / Time No Known Allergies Allergy Verified 04/06/25 20:23 Review of Systems Review of Systems: All systems reviewed & are unremarkable except as noted in HPI and below PMFSH Past Medical History Medical History Chronic hyponatremia HTN (hypertension) PAF (paroxysmal atrial fibrillation) Surgical History Surgical History No significant past surgical history Family History Family History Mother Heart disease Cerebrovascular accident Father Heart disease Cancer Sibling Heart disease Social History Social History Smoking status: Never smoker Alcohol intake: current Drinks per week: 6 Substance use: never Substance use type: does not use Gender identity (if verbalized by the patient): Female Sexual Orientation (if Verbalized by the Patient): Straight or Heterosexual Spiritual care concerns: No Exam Narrative: APPEARANCE: Well appearing, no pain, no distress, well-nourished. HEAD: normocephalic, atraumatic. EYES: PERRLA/EOMI, conjunctivae clear. NOSE: Normal no drainage EARS:TMS clear with good light reflex. THROAT: Pharynx clear, no exudate. NECK: Supple. No adenopathy, no masses. RESPIRATORY: Airway patent, respirations nonlabored. Clear to auscultation bilaterally, no rales, rhonchi, wheezing. CARDIOVASCULAR: Regular rate and rhythm without murmurs rubs or gallops. ABDOMINAL: Soft, nontender, nondistended, normal bowel sounds MUSCULOSKELETAL: Moves all extremities. Strength/ROM intact, No edema, No calf tenderness. NEURO: Alert. Cranial nerves II through XII intact. Good gait. Good coordination SKIN: Warm, dry. Normal Color Course Vital Signs Vital signs: Vital Signs Temperature 97.4 F L 04/06/25 20:17 Pulse Rate 77 04/06/25 20:17 Respiratory Rate 19 04/06/25 20:17 Blood Pressure 205/89 H 04/06/25 20:17 Pulse Oximetry 99 04/06/25 20:17 Oxygen Delivery Room Air 04/06/25 20:17 Temperature 98.5 F 04/07/25 03:16 Pulse Rate 55 L 04/07/25 03:16 Respiratory Rate 16 04/07/25 03:16 Blood Pressure 160/69 H 04/07/25 03:16 Pulse Oximetry 99 04/07/25 03:16 Oxygen Delivery Room Air 04/06/25 20:17 [facility] Narrative Medical decision making narrative: 84-year-old female presents emergency department for evaluation for abdominal bloating and distension. Patient is resting comfortably time of evaluation and re-evaluation. Patient is currently afebrile with a leukocytosis and a stable hemoglobin of 12.8. INR 0.9. Patient did have a mild hyponatremia with a sodium 128 but was treated with a L of lactated Ringer's. No other acute abnormalities on the CMP. On re-evaluation patient states she did feel improved. Differential Diagnosis Differential Diagnosis: ACS, aortic dissection, aortic aneurysm, colitis, diverticulitis, constipation Lab Data [facility] Lab Attestation statement: I personally reviewed the patient's lab results. 04/06/25 21:47 04/06/25 21:47 Labs: Lab Results 04/06/25 04/07/25 Range/Units 21:47 01:21 WBC 6.8 (4.5-10.0) K/mm3 RBC 4.13 L (4.2-5.4) M/mm3 Hgb 12.8 (12.0-15.0) g/dL Hct 36.8 L (37.0-47.0) % MCV 89.1 (80-100) fl MCH 31.0 (26-34) pg MCHC 34.8 (32-36) g/dl RDW 11.9 (11.5-14.5) % Plt Count 291 (150-375) k/mm3 MPV 8.2 (7.4-10.4) fl Immature Gran % (Auto) 0.1 (0-0.5) % Neut % (Auto) 51.7 (45.5-73.1) % Lymph % (Auto) 37.1 (18.3-44.2) % [place] % (Auto) 8.1 (2.6-8.5) % Eos % (Auto) 2.6 (0-4.4) % Baso % (Auto) 0.4 (0.2-1.2) % Lymph # (Auto) 2.53 (0.9-3.2) K/mm3 [place] # (Auto) 0.6 (0.1-0.6) K/mm3 Eos # (Auto) 0.2 (0-0.3) K/mm3 Baso # (Auto) 0.0 (0.0-0.1) K/mm3 Abs Immat Gran (auto) 0.01 (0.00-0.031) K/mm3 Absolute Neuts (auto) 3.5 (1.3-6.7) K/mm3 Absolute Nucleated RBC 0.000 (0.0-0.012) K/mm3 Nucleated RBC % 0.0 (0.0-0.2) % PT 12.4 (11.1-14.7) Seconds INR 0.9 APTT 33.5 (22.3-36.8) Seconds Sodium 128 L (137-145) mmol/L Potassium 3.8 (3.4-5.0) mmol/L Chloride 95 L (98-107) mmol/L Carbon Dioxide 26 (22-30) mmol/L Anion Gap 7 (4-12) mmol/L BUN 12 (7-17) mg/dL Creatinine 0.63 L (0.7-1.0) mg/dL Estim Creat Clear Calc 48 ml/min Estimated GFR > 60 (59 - ) Glucose 105 (65-110) mg/dL Calcium 9.6 (8.4-10.2) mg/dL Total Bilirubin 0.5 (0.2-1.3) mg/dL AST 27 (14-36) U/L ALT 17 (6-35) U/L Alkaline Phosphatase 73 (38-126) U/L Troponin I < 0.012 0.027 D (0.000-0.034) ng/mL Total Protein 8.3 H (6.3-8.2) g/dL Albumin 4.4 (3.5-5.1) g/dL Lipase 43 (23-300) U/L Imaging Data Radiologist's impression: Overnight read CTA chest impression: No thoracic aortic dissection or pulmonary embolism. Coronary artery calcification. Multifocal bilateral upper lung bronchiolitis. CT abdomen pelvis with contrast impression: No abdominal aortic dissection. Cholelithiasis. Multiple uterine fibroids. No other acute findings. Discharge Plan Discharge Clinical Impression: Abdominal bloating Patient Disposition: Home Condition: Stable Instructions: Antibiotic Form Additional Instructions: Clear liquid diet for the next 1-3 days. Advance to a bland diet as tolerated. Tylenol for pain control. Have close follow-up with your primary care physician for additional outpatient testing. If you have any worsening symptoms then please call or return to the emergency department. Patient Language: Occitan Prescriptions: No Action garlic 100 mg Tablet 100 mg PO DAILY milk thistle 175 mg Tablet 175 mg PO DAILY vitamin B complex [B-Complex] Tablet 1 tablet PO DAILY ginkgo biloba 120 mg Tablet 150 mg PO DAILY psyllium husk [Daily Fiber] 0.52 gram Capsule 1,000 g PO DAILY cinnamon bark [Cinnamon] 500 mg Capsule 2,000 mg PO DAILY cholecalciferol (vitamin D3) [Vitamin D3] 25 mcg (1,000 unit) Tablet 25 mcg PO DAILY cranberry extract-vitamin C 250-60 mg Capsule 500 cap PO DAILY icpttjjc-axh-osusg acid-lutein [Adult Multivitamin (w-lutein)] 200-137.5 mcg Tablet,Chewable 1 tablet PO DAILY mayo root-pyridoxine HCl(B6) 325-25 mg Capsule 550 cap PO DAILY Silvino Jensen 1,000 mg PO DAILY Keratan 250 mg PO DAILY Tumeric Curcumin 500 mg PO DAILY Coenzyme Q10 With D3/Mag/Zinc 1 cap/day PO DAILY hydralazine 25 mg tablet 25 mg PO TID Qty: 90 3RF Eliquis 5 mg tablet 5 mg PO BID Qty: 180 3RF Follow-up/Referrals: [place],Melissa Santoro MD [Primary Care Provider, Unknown]
--- NOTE | 2025-04-07 00:54 | ECG_ITS ---
Test Date: 2025-04-07 01:54:28 Measurements Intervals [place] Rate: 58 P: 46 TN: 173 QRS: -23 QRSD: 112 T: 15 QT: 437 QTc: 432 Interpretive Statements SINUS BRADYCARDIA INTRAVENTRICULAR CONDUCTION DELAY ANTEROSEPTAL INFARCT, AGE INDETERMINATE BORDERLINE T WAVE ABNORMALITY- INFERIOR LEADS BASELINE ARTIFACT- I, II, III, AVR, AVL, AVF, V1-V2, V6 ABNORMAL ECG Compared to ECG 04/06/2025 20:30:28 HEART RATE HAS DECREASED Electronically Signed On 04-07-2025 06:30:24 ROTARY SHEAR WORKER HELPER by Tee Crowder D.O.
[2025-04-07 01:05] VITALS: BP 159/126; PULSE 63; RESP 19; O2SAT 100
[2025-04-07 02:10] VITALS: BP 172/77; PULSE 67; RESP 19; O2SAT 84
[2025-04-07 02:30] LABS: Troponin I 0.027 ng/mL (0.000-0.034)
[2025-04-07 03:16] VITALS: BP 160/69; PULSE 55; RESP 16; TEMP 36.9; O2SAT 99
== END 2025-04-07 03:33 | disposition home or self-care (01) ==
PROVIDERS: Emergency Medicine; Emergency Provider Emergency Medicine; PCP Internal Medicine
DX: R14.0 Abdominal distension (gaseous) (principal); I10 Essential (primary) hypertension; I48.0 Paroxysmal atrial fibrillation; E87.1 Hypo-osmolality and hyponatremia; R94.31 Abnormal electrocardiogram [ECG] [EKG]; Z79.01 Long term (current) use of anticoagulants; Z79.899 Other long term (current) drug therapy; I70.0 Atherosclerosis of aorta; K44.9 Diaphragmatic hernia without obstruction or gangrene; D25.9 Leiomyoma of uterus, unspecified; R00.1 Bradycardia, unspecified; I45.9 Conduction disorder, unspecified
CPT/HCPCS: 36415; 71046; 71275; 74174; 80053; 83690; 84484; 85025; 85610; 85730; 93005; 99284; Q9967